=== PATIENT | male | born 1985 | race Caucasian/White ===

== ENCOUNTER 2019-07-24 00:23 | Inpatient (IN) | payer OTHER, SELFPAY ==
[2019-07-24] VITALS (7 sets, daily range): BP systolic 92–118; BP diastolic 51–86; PULSE 62–100; RESP 14–16; TEMP 36.5–37; O2SAT 93–96; BMI 27.4; BMI 27.8
--- NOTE | 2019-07-24 00:42 | CT_ITS ---
STUDY: CT ABDOMEN AND PELVIS WITH CONTRAST REASON FOR EXAM: Male, 33 years old. Upper abdominal pain, nausea and vomiting. Crohn''s disease. TECHNIQUE: Transaxial images were obtained from the dome of the diaphragm to the symphysis pubis without oral contrast. IV 100mL Isovue-370 was administered. Sagittal and coronal images were reconstructed. Individualized dose optimization techniques were used for this CT. COMPARISON: None. FINDINGS: Partially visualized lower chest: Lung bases unremarkable. Liver: No concerning lesions. Gallbladder and biliary tree: No visible gallstones. No pericholecystic inflammation. No biliary ductal dilation. Pancreas: No pancreatic lesions or inflammation. Spleen: Normal size, no splenic lesions. Adrenal glands: No concerning masses. Kidneys and ureters: No hydronephrosis or renal stones. No concerning masses. No ureteral dilation. Bowel: Noninflamed appendix. The distal jejunum and all of the ileum show areas of saccular dilation of the bowel interspersed with regions of wall thickening and luminal narrowing. This extends to the distal/terminal ileum which is concentrically thick-walled and narrowed extending to the ileocecal valve. Prominent mesenteric fat with edema and a small amount of fluid in the mesentery, and engorged straightened basal recta adjacent to the affected loops of small bowel. No abscess or extraluminal air. No fistulous tracts are identified. The large bowel is decompressed. Urinary bladder: No stones or wall thickening. Reproductive:Normal uterus and ovaries. Vascular: No abdominal aortic aneurysm. No atherosclerosis. Patent portal and mesenteric veins. Retroperitoneal and peritoneal spaces: Trace free fluid in the peritoneal cavity. No free air or extra luminal air. Mild mesenteric lymphadenopathy. Osseous: No acute osseous abnormality. Abdominal and pelvic wall: No concerning findings. Chronic postoperative changes anteriorly. CT/Abdomen/Pelvis W IV Cont ONLY IMPRESSION: Crohn''s disease affecting the jejunum and ileum, particularly the distal/terminal ileum. Evidence of an acute flare with mild inflammatory changes. Partial small bowel obstruction secondary to the Crohn''s disease. At least some of the obstruction is likely chronic; comparison with priors would be helpful. No perforation. Electronically Signed: Caio Chavez, at 1:48 EST Tel , Service support ,
[2019-07-24 00:46] LABS: Absolute Lymphocyte Count 0.65 X10^3/uL (0.83-4.51); Absolute Neutrophil Count 9.8 X10^3/uL (2.0-7.7); Basophil# 0.04 X10^3/uL; Basophil% 0.3 % (0-1); Eosinophil# 0.05 X10^3/uL; Eosinophils% 0.4 % (0-5); Hematocrit 48.6 % (40-54); Hemoglobin 16.2 g/dL (13.0-16.5); Lymphocyte # 0.65 X10^3/ul (4.0); Lymphocyte % 5.7 % (19-41); Mean Corp Hgb Conc 33.3 g/dL (32-36); Mean Corpuscular Hgb 28.2 pg (27.0-32.0); Mean Corpuscular Volume 84.7 fL (80-94); Monocyte# 0.86 X10^3/uL; Monocyte% 7.5 % (0-10); NRBC Flagged by Analyzer 0 % (0-5); Neutrophil # 9.84 X10^3/uL (2.7-7.7); Neutrophil % 85.9 % (47-70); Platelet Count 339 K/mm3 (150-450); RBC Distribution Width CV 12.3 % (11.6-14.6); RBC Distribution Width SD 37.5 fl (35.1-43.9); Red Blood Count 5.74 M/mm3 (4.6-6.2); White Blood Count 11.5 K/mm3 (4.4-11.0)
[2019-07-24] MEDS: 0.9% Normal Saline 1,000 ML 1000 ML IV (00:57)
[2019-07-24] MEDS: HYDROmorphone 1 MG/ML Syringe IV ×5 (00:58→22:23)
[2019-07-24] MEDS: Ondansetron 4 MG/2 ML Vial IV ×3 (00:58→18:34)
[2019-07-24 01:07] LABS: ALB/GLOB Ratio 0.8 RATIO (0.9-2.4); AST(SGOT) 15 U/L (15-37); Alanine Aminotransfer ALT/SGPT 20 U/L (16-61); Albumin, Serum 3.8 g/dL (3.2-5.0); Alkaline Phosphatase 82 U/L (45-117); Anion Gap 7 (5-15); BUN 11 mg/dL (7-18); BUN/Creat Ratio 12.8 RATIO (10-20); Calcium,Total 9.3 mg/dL (8.5-10.1); Chloride 106 mmol/L (98-107); Creatinine, Serum 0.86 mg/dL (0.70-1.30); EST Glomerular Filtration Rate 109 mL/min (>60); Est Glom Filt Rate - Afr Amer 132 mL/min (>60); Estimated Creatinine Clearance 107.27 ml/min; Globulin 4.5 g/dL (2.2-4.2); Glucose 114 mg/dL (74-106); Lipase 94 U/L (73-393); Potassium 3.4 mmol/L (3.5-5.1); Protein, Total 8.3 g/dL (6.4-8.2); Sodium Level 137 mmol/L (136-145)
--- NOTE | 2019-07-24 02:59 | ED.DCSUM_ITS ---
- ER Visit Summary Date of Service: 07/24/19 Chief Complaint: Abdominal pain History of Present Illness: The patient is a 33 M with abdominal pain since yesterday morning. It feels like a pulsing in his upper abdomen. Associated with nausea vomiting. Similar to prior Crohn's flare. History of colectomy secondary to Crohn's. He follows with a Dr. Washington in [facility]. Physical Examination: Afebrile vital signs unremarkable. Patient appears in mild distress and uncomfortable. Heart regular. Lungs clear. Abdomen is tender in the upper hemiabdomen. No guarding or rebound. Skin appears normal. Test Results: White count 11.5, potassium 3.4, glucose 114. Lipase normal. Liver normal. Urinalysis pending. CT abdomen showed Crohn's flare of the jejunum and ileum. Partial small bowel obstruction which appears possibly chronic. Please see the complete report. Emergency Department Course and Treatment: Patient was treated with fluids, Dilaudid, Zofran while awaiting results. Work-up was consistent with a Crohn's flare and partial small bowel obstruction. Patient needed additional pain medicine. He is not currently having vomiting. There does not appear to be any indication for NG tube or surgery at this point. Will contact the hospitalist. Treatment Plan: As above Disposition: Admission Impression: 1. Crohn's flare 2. Partial small bowel obstruction This note was generated with [employer] dictation software. It may contain incorrect words, spelling, and punctuation that were not noted in review of the chart prior to signing ED Disposition - Plan for ED Patient: Referrals: Care Physician,No Primary [Primary Care Provider] -
--- NOTE | 2019-07-24 03:11 | PCM.HP.STD ---
Problem List (1) Crohn's disease Status: Acute History of Present Illness Date of Admission: 07/24/19 Chief Complaint: nausea; and vomiting The patient is a 33 year old M with a significant history of Crohn disease status post bowel resection who presents aat the emergency department with 1 day history of excruciating upper abdominal pain that is progressively worsening. His pain is nonradiating. While coming to emergency department his pain increased anything that the car fell into a bump. He denies any ameliorating factors. Associated with symptoms is severe nausea and vomiting. He has diarrhea; unchanged from previous. Abdomen and pelvis CT showed partial small bowel obstruction secondary to Crohn's disease; with at least some of the obstruction likely chronic. Past Medical History Medical History: Medical History (Last Updated 07/24/19 @ 04:09 by Bhavseh Gaitan MD) Crohn's disease K50.90 Allergies morphine Adverse Reaction (Verified 07/24/19 00:28) Itching Home Medications: Ambulatory Orders Medication Instructions Recorded NK 07/24/19 Surgical History: - - Bowel resection Lives: With Family Smoking Status: Current some day smoker Tobacco Use: Cigars Alcohol: Occasional - *Family History Maternal History Items: - - His maternal grandmother has IBS. Paternal History Items: - - He denies any pertinent medical history Review of Systems Constitutional: Denies: Chills, Fever, Weight Change HEENT: Denies: Head Aches, Sinus Congestion, Sinus Drainage Cardiovascular: Denies: Chest Pain, Palpitations Respiratory: Denies: Cough, Shortness of breath at rest, Sputum production Gastrointestinal: Reports: Abdominal Pain, Diarrhea, Nausea, Vomiting Genitourinary: Denies: Dysuria Musculoskeletal: Denies: Joint Pain, Joint Tenderness Skin: Denies: Rash, Wounds Neurological: Denies: Numbness, Tingling, Focal weakness Psychiatric: Denies: Anxiety, Depression, Homicidal Ideations, Suicidal Ideations Hematologic/ Lymphatic: Denies: Easy Bruising, Easy Bleeding VTE Information - Inpt Only VTE Present on Admission: No VTE Mechan Device Prophylaxis: None VTE Pharm Prophylaxis ordered?: Yes Patient Problems: Active and Suspected Problems (Last Updated 07/24/19 @ 04:09 by Bhavesh Gaitan MD) Crohn's disease (Acute) - Physical Exam Vitals/I&O's: Vital Signs Temp Pulse Resp BP Pulse Ox 98.3 F 89 15 118/80 96 07/24/19 00:25 07/24/19 02:24 07/24/19 02:24 07/24/19 02:24 07/24/19 02:24 Oxygen Flow Rate (L/min) 2 Oxygen Delivery Method Nasal Cannula Weight: 74.8 kg Body Mass Index (BMI) 27.4 Intake and Output for Last 24 Hours 07/22/19 07/23/19 07/24/19 23:59 23:59 23:59 Intake Total 1000 / 1000 Balance 1000 / 1000 General: Alert, Oriented x3, Cooperative HEENT: Atraumatic, PERRLA, EOMI, Normocephalic Neck: Supple, No JVD, Negative Carotid Bruits Lungs: Clear to auscultation, Normal air movement Cardiovascular: Regular rate, Normal S1, Normal S2, No murmurs Abdomen: Bowel Sounds Present, Soft, Tender Extremities: No edema, Capillary Refill Less than 3 Seconds Skin: No rashes, No breakdown Musculoskeletal: No Tenderness to Palpation of Joints or Extremities Neurological: Cranial nerves II-XII grossly intact Psych/Mental Status: Normal Affect, Appropriate Laboratory Results 07/24/19 00:30: WBC 11.5 H, RBC 5.74, Hgb 16.2, Hct 48.6, MCV 84.7, MCH 28.2, MCHC 33.3, RDW Std Deviation 37.5, RDW Coeff of Latricia 12.3, Plt Count 339, MPV 10.0, Immature Gran % (Auto) 0.200, Neut % (Auto) 85.9 H, Lymph % (Auto) 5.7 L, [place] % (Auto) 7.5, Eos % (Auto) 0.4, Baso % (Auto) 0.3, Absolute Neuts (auto) 9.8 H, Absolute Lymphs (auto) 0.65 L, Nucleated RBC % 0 07/24/19 00:30: Sodium 137, Potassium 3.4 L, Chloride 106, Carbon Dioxide 24.0, Anion Gap 7, BUN 11, Creatinine 0.86, Estim Creat Clear Calc 107.27, Est GFR (MDRD) Af Amer 132, Est GFR (MDRD) Non-Af 109, BUN/Creatinine Ratio 12.8, Glucose 114 H, Calcium 9.3, Total Bilirubin 0.70, AST 15, ALT 20, Alkaline Phosphatase 82, Total Protein 8.3 H, Albumin 3.8, Globulin 4.5 H, Albumin/Globulin Ratio 0.8 L, Lipase 94 Assessment/Plan All Active Problems (Last Updated 07/24/19 @ 04:09 by Bhavesh Gaitan MD) Crohn's disease (Acute) The patient is a 33 year old M with a significant history of Crohn disease status post bowel resection who presents emergency department with 1 day history of excruciating upper abdominal pain that was progressively worsening; nausea and vomiting and with radiographic evidence of Crohn's flare with probable partial small bowel obstruction a part of which might be chronic. Crohn's flare Supportive treatment with normal saline with potassium replacement. We will keep n.p.o. for now. Patient is allergic to morphine. Dilaudid p.o. ordered. Antiemetics with IV Zofran. Discussed steroid therapy with patient. Patient reported that when he take steroids he becomes angry and he gains weight. Patient is agreeable to short-term steroids. IV Solu-Medrol ordered. His GI doctor is Dr. Mod[place] Washington at [facility]. If patient is still here on Friday at 07/26/2019 consider discussing with his GI doctor for further recommendations .Otherwise consider other immunomodulators on discharge. If patient continues to have nausea vomiting, consider NG tube. Will consult general surgery to optimize management of partial small bowel obstruction Hypokalemia Mild Replacement as above Check magnesium. DVT Prophylaxis Because of his history of Crohn's he has increased risk of DVT. Lovenox ordered. Code Visit Inpatient E&M: 39742 Init Hosp L3
[2019-07-24] MEDS: proMETHazine 25 MG/ML Syringe 6.25 MG IV ×2 (03:48→22:27)
[2019-07-24] MEDS: Potassium Chloride 40 MEQ in 0.9% Normal Saline 1,000 ML 75 MEQ IV ×2 (05:02→19:26)
[2019-07-24] MEDS: 0.9% Saline Lock 10 ML Syringe IV ×4 (05:23→22:36)
--- NOTE | 2019-07-24 09:15 | PN_ITS ---
Patient Problems: Active and Suspected Problems (Last Updated 07/24/19 @ 04:09 by Bhavesh Gaitan MD) Crohn's disease (Acute) Reason for Visit: SBO Subjective: Abdomen feeling slightly better. Still with abdominal pain. No flatus. No emesis. Vitals/I&O's: Vital Signs Temp Pulse Resp BP Pulse Ox 36.8 C 89 15 118/80 96 07/24/19 00:25 07/24/19 02:24 07/24/19 02:24 07/24/19 02:24 07/24/19 07:49 Oxygen Flow Rate (L/min) 2 Oxygen Delivery Method Nasal Cannula Weight: 75.807 kg Body Mass Index (BMI) 27.8 Intake and Output for Last 24 Hours 07/22/19 07/23/19 07/24/19 23:59 23:59 23:59 Intake Total 1000 / 1000 Balance 1000 / 1000 General: Alert, Cooperative, - - uncomfortable. non-toxic. HEENT: Atraumatic, Normocephalic Oral: Moist Mucosa, No Gingival or Mucosal Lesions/ Ulcerations Neck: No Nodes, Trachea Midline Lungs: Clear to auscultation, Normal air movement, No rhonchi, No wheeze, No rales Cardiovascular: Regular rate, Regular Rhythm, Normal S1, Normal S2 Abdomen: Non-Distended, Hypoactive Bowel Sounds, - - TTP around the umbilicus Extremities: No edema, No Calf Tenderness Skin: No rashes, No breakdown Psych/Mental Status: Appropriate, Flat Affect Laboratory Results 07/24/19 00:30: WBC 11.5 H, RBC 5.74, Hgb 16.2, Hct 48.6, MCV 84.7, MCH 28.2, MCHC 33.3, RDW Std Deviation 37.5, RDW Coeff of Latricia 12.3, Plt Count 339, MPV 10 .0, Immature Gran % (Auto) 0.200, Neut % (Auto) 85.9 H, Lymph % (Auto) 5.7 L, Power % (Auto) 7.5, Eos % (Auto) 0.4, Baso % (Auto) 0.3, Absolute Neuts (auto) 9.8 H, Absolute Lymphs (auto) 0.65 L, Nucleated RBC % 0 07/24/19 00:30: Sodium 137, Potassium 3.4 L, Chloride 106, Carbon Dioxide 24.0, Anion Gap 7, BUN 11, Creatinine 0.86, Estim Creat Clear Calc 107.27, Est GFR (MDRD) Af Amer 132, Est GFR (MDRD) Non-Af 109, BUN/Creatinine Ratio 12.8, Glucose 114 H, Calcium 9.3, Total Bilirubin 0.70, AST 15, ALT 20, Alkaline Phosphatase 82, Total Protein 8.3 H, Albumin 3.8, Globulin 4.5 H, Albumin/Globulin Ratio 0.8 L, Lipase 94 07/24/19 00:30: Magnesium 2.0 Current Medications Enoxaparin Sodium (Lovenox) 40 mg SC DAILY [facility] Glucagon () 1 mg IM .X1 PRN PRN Reason: Hypoglycemia Hydromorphone HCl (Dilaudid Inj) 1 mg IV Q4H PRN PRN PRN Reason: Pain Score 6-10/10 Potassium Chloride 40 meq/ (Sodium Chloride) 1,020 mls @ 75 mls/hr IV .[id number] [facility] Last Admin: 07/24/19 05:02 Dose: 75 mls/hr Documented by: Dextrose (Dextrose 10%-Water) 250 mls @ 999 mls/hr IV .Q16M PRN; Protocol PRN Reason: HYPOGLYCEMIA Sodium Chloride () 250 mls @ 15 mls/hr IV .[id number] PRN PRN Reason: Additional IVPB Infusion Methylprednisolone (Solu-Medrol) 40 mg IV Q12 [facility] Last Admin: 07/24/19 05:02 Dose: 40 mg Documented by: Ondansetron HCl (Zofran) 4 mg IV Q8H PRN PRN PRN Reason: NAUSEA/VOMITING Sodium Chloride () 10 - 40 ml IV UD PRN PRN Reason: SALINE FLUSH Last Admin: 07/24/19 05:23 Dose: 10 ml Documented by: STROKE Vital Signs/Narrative: Vital Signs Pulse Ox 07/24/19 07:49 96 Medical Necessity - Tobacco Use Smoking Status: Current some day smoker Tobacco Use: Cigars Assessment/Plan All Active Problems (Last Updated 07/24/19 @ 04:09 by Bhavesh Gaitan MD) Crohn's disease (Acute) 1. SBO * improved distention per the patient * continue NPO for now * IVF * Gen Surg on consult. I am not anticipating any surgery, unless he would fail to progress over the next several days, or if his clinical situation worsens * pain control and antiemetics 2. AE Crohn's dz * has had a prior bowel resection (14 feet) * continue with steroids * follow up with GI as outp. 3. VTE proph: LMWH Code Visit Inpatient E&M: 78921 Subs Hosp L2
--- NOTE | 2019-07-24 10:50 | CM.UR ---
RN CM Assessment Introduced role of RN CM to patient. Patient is alert and able to participate in RN CM Assessment. Care providers, pharmacy, and demographics verified. Mother at bedside. Patient denies any need for assistance with accessibility, ADLs or DME. Noted that patient is Self pay and explained I'll alert SW to come and advise on Medicaid. Patient did state that he also is interested in changing GI physicians. States sees a GI in [place]. States he has been on Humira and hasn't liked the side effects. States that he feels as if his GI has not been listening to him. Gave him GI providers in [place] for him to consider. Also does not have a PCP. Gave him list of PCPs as well to consider. Plan is to discharge home. No need anticipated. Canelo Obrien RN, CCM.
--- NOTE | 2019-07-24 11:05 | PCM.CONS.B ---
- Consult Date of Consult: 07/24/19 - Reason for Consult Chief Complaint: abdominal pain History of Present Illness: 33 y/o WM with known Crohn's disease presents with abdominal pain. States that it feels like a brick inside his abdomen. He had noted this about a day ago. He has been followed by a wrist hemmer in [place], but he wants a new wrist hemmer. He states that he had an intestinal resection several years ago for similar symptoms to what he has now. He states that he last passed flatus yesterday and had a bowel movement yesterday, normally he has several bowel movements per day. He states that he self-discontinued Humira, because he did not like the side effects. He has been on Pentasa, azulfadine, and other anti-inflammatories in the past. He has been trying home remedies since stopping Humira - he states about a year ago - using CBD oil, tumeric, etc. CT scan in [facility] ED reveals The distal jejunum and all of the ileum show areas of saccular dilation of the bowel interspersed with regions of wall thickening and luminal narrowing. This extends to the distal/terminal ileum which is concentrically thick-walled and narrowed extending to the ileocecal valve. Prominent mesenteric fat with edema and a small amount of fluid in the mesentery, and engorged straightened basal recta adjacent to the affected loops of small bowel. No abscess or extraluminal air. No fistulous tracts are identified. WBC mildly elevated at 11.5k with left shift of differential. Past Medical History: Crohn's disease Past Surgical History: small bowel resection as above Medications: none Allergies: morphine Social history: TOB use yes Review of Systems: General - denies fevers Cardiovascular denies chest pain, denies history of heart attack Pulmonary denies shortness of breath, denies coughing up blood Gastrointestinal as per HPI, denies blood in stools Neurological denies seizures Genitourinary denies burning with urination, denies blood in urine Hematological denies spontaneous/prolonged bleeding Skin denies open nonhealing wounds Musculoskeletal denies arthritis Endocrine denies diabetes Psychological denies hallucinations Physical examination: Vital signs Temp 98.3F HR 88 RR 16 BP 120/78 General WD/WN WM in no apparent distress, alert and oriented, not septic appearing HEENT Normocephalic. EOM intact with sclera clear and no icterus noted. Neck is supple with no jugular venous distention noted. Trachea is midline. Lungs normal breath sounds. No rales/rhonchi/wheezing noted. No labored breathing noted, such as retractions. No cough heard. Heart normal heart sounds, regular rate. Abdomen soft with tenderness of the lower abdomen with rebound but no rigidity, no bowel sounds noted Extremities no calf tenderness noted. No pitting edema noted. Genitourinary/Rectal deferred Skin normal skin integrity. Neurological non focal. Psychological normal affect, patient is calm and appropriate IMPRESSION: exacerbation of Crohn's disease with partial small bowel obstruction Discussion/Plan: Patient would be a complicated surgical case - his last surgery was at [facility] in [place] If he requires surgery in this hospital admission, I recommend transfer to [place] or [place] At this point in time, patient states that he feels improved - though still with abdominal pain and obstipation/constipation Recommend IV PPI use Continue medical treatment for Crohn's as you are doing, however if no improvement, consider GI medicine consultation for additional medical treatment Can be on sips of clear liquids May consider repeat CT scan to check status if needed - Friday, recommend use oral gastrografin contrast Will follow patient with you
[2019-07-24] MEDS: Enoxaparin 40 MG/0.4 ML Syringe SC (11:11)
[2019-07-24 12:39] LABS: Bacteria 0 SEEN /hpf (None Seen); Color, Urine Yellow (Yellow); Glucose, Dipstick Normal (Normal); Leukocyte Esterase-Dipstick Negative /ul (Negative); Mucous, Urine 0 SEEN /hpf (<or=2+); Nitrite-Dipstick Negative (Negative); Occult Blood-Urine Negative /ul (Negative); Protein-Dipstick Negative (Negative); Red Blood Cells-Urine 0 SEEN /hpf (0-5); Specific Gravity, Urine 1.015 (1.002-1.030); Squamous Epithelial Cells - UA 0 SEEN /hpf (0-5); Urine Bilirubin Dipstick Negative (Negative); Urine Clarity Clear (Clear); Urine Urobilinogen Normal (Normal); Urine pH 6.5 (5.0 - 8.0); White Blood Cells 0 SEEN /hpf (0-5)
[2019-07-24 12:42] LABS: Ketone-Dipstick 150 mg/dl (Negative)
--- NOTE | 2019-07-24 18:20 | CASEMGMT ---
SOCIAL WORK INFORMANT: KAL JACOBO REASON FOR REFERRAL: PATIENT IS SELF PAY MET WITH PATIENT IN ROOM. INTRODUCED ROLE AND REASON FOR REFERRAL. PATIENT REPORTS USED TO BE ON MEDICAID. PATIENT STATES RECENTLY GOT AND BELIEVES TO BE OVER INCOME. PATIENT STATES THEIR CHILDREN ARE ON MEDICAID. DISCUSSED MEDICAID QUALIFICATIONS AND ENCOURAGED PATIENT TO FOLLOW UP WITH [facility] ON FRIDAY. PATIENT GIVEN INFORMATION ON FREE CLINIC HE DOES NOT HAVE A PRIMARY CARE PHYSICIAN. PATIENT DENIES ANY OTHER NEEDS. PLAN: HOME WITH RESOURCES PROVIDED. GOLDEN CONWAY, REGIONAL BUSINESS MANAGER.
[2019-07-24] MEDS: Ensure Clear 120 ML Liquid PO (18:33)
--- NOTE | 2019-07-24 19:43 | NURSING ---
reviewed and agree with all documentation completed by RENE Roth
[2019-07-25 04:00] VITALS: BP 94/57; PULSE 58; RESP 16; TEMP 36.6; O2SAT 93
[2019-07-25 06:40] LABS: Absolute Lymphocyte Count 0.43 X10^3/uL (0.83-4.51); Absolute Neutrophil Count 4.1 X10^3/uL (2.0-7.7); Hematocrit 40.3 % (40-54); Hemoglobin 12.8 g/dL (13.0-16.5); Lymphocyte # 0.43 X10^3/ul (4.0); Lymphocyte % 9.2 % (19-41); Mean Corp Hgb Conc 31.8 g/dL (32-36); Mean Corpuscular Hgb 27.8 pg (27.0-32.0); Mean Corpuscular Volume 87.4 fL (80-94); Mean Platelet Vol. 10.5 fl (6.2-12.0); Monocyte# 0.13 X10^3/uL; Monocyte% 2.8 % (0-10); NRBC Flagged by Analyzer 0 % (0-5); Neutrophil # 4.11 X10^3/uL (2.7-7.7); POSITIVE DIFFERENTIAL YES; Platelet Count 247 K/mm3 (150-450); RBC Distribution Width CV 12.4 % (11.6-14.6); RBC Distribution Width SD 39.8 fl (35.1-43.9); Red Blood Count 4.61 M/mm3 (4.6-6.2); White Blood Count 4.7 K/mm3 (4.4-11.0)
[2019-07-25 06:44] LABS: Differential Indicated SCAN CRITERIA MET
[2019-07-25 06:51] LABS: Anion Gap 4 (5-15); BUN 7 mg/dL (7-18); BUN/Creat Ratio 11.2 RATIO (10-20); Calcium,Total 8.6 mg/dL (8.5-10.1); Chloride 109 mmol/L (98-107); Creatinine, Serum 0.63 mg/dL (0.70-1.30); EST Glomerular Filtration Rate 157 mL/min (>60); Est Glom Filt Rate - Afr Amer 190 mL/min (>60); Estimated Creatinine Clearance 146.43 ml/min; Glucose 119 mg/dL (74-106); Potassium 4.6 mmol/L (3.5-5.1); Sodium Level 139 mmol/L (136-145)
[2019-07-25 07:07] VITALS: O2SAT 92
--- NOTE | 2019-07-25 08:29 | PN_ITS ---
Patient Problems: Active and Suspected Problems (Last Updated 07/24/19 @ 04:09 by Bhavesh Gaitan MD) Crohn's disease (Acute) Reason for Visit: SBO Subjective: Feeling better. Tolerating clears. +BM and flatus. Vitals/I&O's: Vital Signs Temp Pulse Resp BP Pulse Ox 36.6 C 58 L 16 94/57 L 92 07/25/19 04:00 07/25/19 04:00 07/25/19 04:00 07/25/19 04:00 07/25/19 07:07 Oxygen Flow Rate (L/min) 2 Oxygen Delivery Method Room Air Weight: 75.807 kg Body Mass Index (BMI) 27.8 Intake and Output for Last 24 Hours 07/23/19 07/24/19 07/25/19 23:59 23:59 23:59 Intake Total 2440 / 2680 796.25 / 796.25 Output Total 250 / 250 0 / 0 Balance 2190 / 2430 796.25 / 796.25 General: No apparent distress HEENT: Atraumatic, Normocephalic Oral: Moist Mucosa, No Gingival or Mucosal Lesions/ Ulcerations Neck: No Nodes, Trachea Midline Lungs: Clear to auscultation, Normal air movement, No rhonchi, No wheeze, No rales Cardiovascular: Regular rate, Regular Rhythm, Normal S1, Normal S2, No murmurs Abdomen: Hypoactive Bowel Sounds, Tender - but less so than on 07/24 Extremities: No edema, No Calf Tenderness Skin: No rashes, No breakdown Psych/Mental Status: Normal Affect, Appropriate Laboratory Results 07/24/19 12:25: Urine Color Yellow, Urine Clarity Clear, Urine pH 6.5, Ur Specific [place] 1.015, Urine Protein Negative, Urine Glucose (UA) Normal, Urine Ketones 150 H, Urine Occult Blood Negative, Urine Nitrite Negative, Urine Bilirubin Negative, Urine Urobilinogen Normal, Ur Leukocyte Esterase Negative, Urine RBC 0 SEEN, Urine WBC 0 SEEN, Ur Squamous Epith Cells 0 SEEN, Urine Bacteria 0 SEEN, Urine Mucus 0 SEEN 07/25/19 05:44: WBC 4.7, RBC 4.61, Hgb 12.8 L, Hct 40.3, MCV 87.4, MCH 27.8, MCHC 31.8 L, RDW Std Deviation 39.8, RDW Coeff of Latricia 12.4, Plt Count 247, MPV 10.5, Immature Gran % (Auto) 0.000, Neut % (Auto) 88.0 H, Lymph % (Auto) 9.2 L, [place] % (Auto) 2.8, Eos % (Auto) 0.0, Baso % (Auto) 0.0, Absolute Neuts (auto) 4.1, Absolute Lymphs (auto) 0.43 L, Nucleated RBC % 0 07/25/19 05:44: Sodium 139, Potassium 4.6, Chloride 109 H, Carbon Dioxide 26.0, Anion Gap 4 L, BUN 7, Creatinine 0.63 L, Estim Creat Clear Calc 146.43, Est GFR (MDRD) Af Amer 190, Est GFR (MDRD) Non-Af 157, BUN/Creatinine Ratio 11.2, Glucose 119 H, Calcium 8.6 Current Medications Enoxaparin Sodium (Lovenox) 40 mg SC DAILY [facility] Last Admin: 07/24/19 11:11 Dose: 40 mg Documented by: Glucagon () 1 mg IM .X1 PRN PRN Reason: Hypoglycemia Hydromorphone HCl (Dilaudid Inj) 1 mg IV Q4H PRN PRN PRN Reason: Pain Score 6-10/10 Last Admin: 07/24/19 22:23 Dose: 1 mg Documented by: Potassium Chloride 40 meq/ (Sodium Chloride) 1,020 mls @ 75 mls/hr IV .[id number] [facility] Last Infusion: 07/25/19 02:51 Dose: 75 mls/hr Documented by: Dextrose (Dextrose 10%-Water) 250 mls @ 999 mls/hr IV .Q16M PRN; Protocol PRN Reason: HYPOGLYCEMIA Sodium Chloride () 250 mls @ 15 mls/hr IV .[id number] PRN PRN Reason: Additional IVPB Infusion Pantoprazole Sodium 40 mg/ (Sodium Chloride) 110 mls @ 330 mls/hr IV Q24 [facility] Methylprednisolone (Solu-Medrol) 40 mg IV Q12 [facility] Last Admin: 07/24/19 22:27 Dose: 40 mg Documented by: Nutritional Formula (Lactose Free) (Ensure Clear) 120 ml PO 4X/DAY [facility] Last Admin: 07/24/19 22:37 Dose: Not Given Documented by: Ondansetron HCl (Zofran) 4 mg IV Q8H PRN PRN PRN Reason: NAUSEA/VOMITING Last Admin: 07/24/19 18:34 Dose: 4 mg Documented by: Promethazine HCl (Phenergan) 6.25 mg IV Q6H PRN PRN PRN Reason: NAUSEA/VOMITING Last Admin: 07/24/19 22:27 Dose: 6.25 mg Documented by: Sodium Chloride () 10 - 40 ml IV UD PRN PRN Reason: SALINE FLUSH Last Admin: 07/24/19 22:36 Dose: 10 ml Documented by: STROKE Vital Signs/Narrative: Vital Signs Pulse Ox 07/25/19 07:07 92 Medical Necessity - Tobacco Use Smoking Status: Current some day smoker Tobacco Use: Cigars Assessment/Plan All Active Problems (Last Updated 07/24/19 @ 04:09 by Bhavesh Gaitan MD) Crohn's disease (Acute) 1. SBO * improved distention per the patient * tolerated clears, advance to fulls * IVF * Gen Surg on consult. I am not anticipating any surgery, unless he would fail to progress over the next several days, or if his clinical situation worsens. If surgery required, he will need to go another facility. * pain control and antiemetics 2. AE Crohn's dz * has had a prior bowel resection (14 feet) * continue with steroids * follow up with GI as outp. 3. VTE proph: LMWH Code Visit Inpatient E&M: 68876 Subs Hosp L2
[2019-07-25] MEDS: 0.9% Normal Saline 1,000 ML 125 ML IV ×2 (09:34→17:51)
[2019-07-25 09:35] VITALS: PULSE 76
[2019-07-25 10:05] VITALS: BP 98/47; PULSE 68; RESP 18; TEMP 36.5; O2SAT 94
[2019-07-25] MEDS: Enoxaparin 40 MG/0.4 ML Syringe SC (10:06)
--- NOTE | 2019-07-25 10:23 | PCM.PN.SRG ---
Patient Problems: Active and Suspected Problems (Last Updated 07/24/19 @ 04:09 by Bhavesh Gaitan MD) Crohn's disease (Acute) Subjective: Patient passing flatus and has had bowel movements states abdominal pain is much improved, still sensation of brick - Physical Exam Vitals/I&O's: Vital Signs Temp Pulse Resp BP Pulse Ox 97.7 F L 68 18 98/47 L 94 07/25/19 10:05 07/25/19 10:05 07/25/19 10:05 07/25/19 10:05 07/25/19 10:05 Oxygen Flow Rate (L/min) 2 Oxygen Delivery Method Room Air Weight: 75.807 kg Body Mass Index (BMI) 27.8 Intake and Output for Last 24 Hours 07/23/19 07/24/19 07/25/19 23:59 23:59 23:59 Intake Total 2440 / 2680 1330.83 / 1330.83 Output Total 250 / 250 0 / 0 Balance 2190 / 2430 1330.83 / 1330.83 General: Alert, Oriented x3 Oral: Moist Mucosa Neck: Supple Lungs: Normal air movement Abdomen: Bowel Sounds Present, Soft Laboratory Results 07/24/19 12:25: Urine Color Yellow, Urine Clarity Clear, Urine pH 6.5, Ur Specific [place] 1.015, Urine Protein Negative, Urine Glucose (UA) Normal, Urine Ketones 150 H, Urine Occult Blood Negative, Urine Nitrite Negative, Urine Bilirubin Negative, Urine Urobilinogen Normal, Ur Leukocyte Esterase Negative, Urine RBC 0 SEEN, Urine WBC 0 SEEN, Ur Squamous Epith Cells 0 SEEN, Urine Bacteria 0 SEEN, Urine Mucus 0 SEEN 07/25/19 05:44: WBC 4.7, RBC 4.61, Hgb 12.8 L, Hct 40.3, MCV 87.4, MCH 27.8, MCHC 31.8 L, RDW Std Deviation 39.8, RDW Coeff of Latricia 12.4, Plt Count 247, MPV 10.5, Immature Gran % (Auto) 0.000, Neut % (Auto) 88.0 H, Lymph % (Auto) 9.2 L, Kay % (Auto) 2.8, Eos % (Auto) 0.0, Baso % (Auto) 0.0, Absolute Neuts (auto) 4.1, Absolute Lymphs (auto) 0.43 L, Nucleated RBC % 0 07/25/19 05:44: Sodium 139, Potassium 4.6, Chloride 109 H, Carbon Dioxide 26.0, Anion Gap 4 L, BUN 7, Creatinine 0.63 L, Estim Creat Clear Calc 146.43, Est GFR (MDRD) Af Amer 190, Est GFR (MDRD) Non-Af 157, BUN/Creatinine Ratio 11.2, Glucose 119 H, Calcium 8.6 Current Medications Enoxaparin Sodium (Lovenox) 40 mg SC DAILY [facility] Last Admin: 07/25/19 10:06 Dose: 40 mg Documented by: Glucagon () 1 mg IM .X1 PRN PRN Reason: Hypoglycemia Hydromorphone HCl (Dilaudid Inj) 1 mg IV Q4H PRN PRN PRN Reason: Pain Score 6-10/10 Last Admin: 07/24/19 22:23 Dose: 1 mg Documented by: Dextrose (Dextrose 10%-Water) 250 mls @ 999 mls/hr IV .Q16M PRN; Protocol PRN Reason: HYPOGLYCEMIA Sodium Chloride () 250 mls @ 15 mls/hr IV .[id number] PRN PRN Reason: Additional IVPB Infusion Pantoprazole Sodium 40 mg/ (Sodium Chloride) 110 mls @ 330 mls/hr IV Q24 [facility] Last Admin: 07/25/19 10:06 Dose: 330 mls/hr Documented by: Sodium Chloride () 1,000 mls @ 125 mls/hr IV .Q8H [facility] Last Infusion: 07/25/19 10:08 Dose: 0 mls/hr Documented by: Methylprednisolone (Solu-Medrol) 40 mg IV Q12 [facility] Last Admin: 07/25/19 10:06 Dose: 40 mg Documented by: Nutritional Formula (Lactose Free) (Ensure Clear) 120 ml PO 4X/DAY [facility] Last Admin: 07/25/19 10:04 Dose: Not Given Documented by: Ondansetron HCl (Zofran) 4 mg IV Q8H PRN PRN PRN Reason: NAUSEA/VOMITING Last Admin: 07/24/19 18:34 Dose: 4 mg Documented by: Promethazine HCl (Phenergan) 6.25 mg IV Q6H PRN PRN PRN Reason: NAUSEA/VOMITING Last Admin: 07/24/19 22:27 Dose: 6.25 mg Documented by: Sodium Chloride () 10 - 40 ml IV UD PRN PRN Reason: SALINE FLUSH Last Admin: 07/24/19 22:36 Dose: 10 ml Documented by: Medical Necessity - Tobacco Use Smoking Status: Current some day smoker Tobacco Use: Cigars Assessment/Plan All Active Problems (Last Updated 07/24/19 @ 04:09 by Bhavesh Gaitan MD) Crohn's disease (Acute) Impression: exacerbation of Crohn's disease, partial bowel obstruction - resolved Discussion/Plan: patient is interested in GI medicine with [facility] - I will put in referral to [facility] for patient ( he has been counseled that this may take weeks/months) He will continue follow up with his [place] physician until above His bowel obstruction symptoms have resolved - no surgical intervention required - will sign off case
[2019-07-25 15:25] VITALS: BP 92/58; PULSE 82; RESP 16; TEMP 36.7; O2SAT 94
[2019-07-25] MEDS: HYDROmorphone 1 MG/ML Syringe IV ×2 (16:38→21:28)
[2019-07-25] MEDS: 0.9% Saline Lock 10 ML Syringe IV ×3 (16:38→21:30)
[2019-07-25] MEDS: Ondansetron 4 MG/2 ML Vial IV (16:43)
[2019-07-25] MEDS: proMETHazine 25 MG/ML Syringe 6.25 MG IV (21:27)
[2019-07-25 21:37] VITALS: BP 111/66; PULSE 78; RESP 18; TEMP 37; O2SAT 95
[2019-07-26] MEDS: 0.9% Normal Saline 1,000 ML 125 ML IV (01:57)
[2019-07-26 02:02] VITALS: BP 97/57; PULSE 60; RESP 18; TEMP 36.6; O2SAT 94
[2019-07-26 06:03] LABS: Absolute Lymphocyte Count 0.49 X10^3/uL (0.83-4.51); Absolute Neutrophil Count 4.6 X10^3/uL (2.0-7.7); Basophil# 0.01 X10^3/uL; Basophil% 0.2 % (0-1); Hematocrit 39.1 % (40-54); Hemoglobin 12.8 g/dL (13.0-16.5); Lymphocyte # 0.49 X10^3/ul (4.0); Lymphocyte % 9.1 % (19-41); Mean Corp Hgb Conc 32.7 g/dL (32-36); Mean Corpuscular Hgb 28.6 pg (27.0-32.0); Mean Corpuscular Volume 87.5 fL (80-94); Mean Platelet Vol. 10.4 fl (6.2-12.0); Monocyte% 5.6 % (0-10); NRBC Flagged by Analyzer 0 % (0-5); Neutrophil # 4.55 X10^3/uL (2.7-7.7); Neutrophil % 84.9 % (47-70); POSITIVE DIFFERENTIAL YES; Platelet Count 243 K/mm3 (150-450); RBC Distribution Width CV 12.2 % (11.6-14.6); RBC Distribution Width SD 39.2 fl (35.1-43.9); Red Blood Count 4.47 M/mm3 (4.6-6.2); White Blood Count 5.4 K/mm3 (4.4-11.0)
[2019-07-26 06:12] LABS: Differential Indicated SCAN CRITERIA MET
[2019-07-26 06:34] LABS: Anion Gap 1 (5-15); BUN 6 mg/dL (7-18); BUN/Creat Ratio 8.6 RATIO (10-20); Calcium,Total 8.4 mg/dL (8.5-10.1); Chloride 112 mmol/L (98-107); EST Glomerular Filtration Rate 138 mL/min (>60); Est Glom Filt Rate - Afr Amer 167 mL/min (>60); Estimated Creatinine Clearance 131.79 ml/min; Glucose 129 mg/dL (74-106); Sodium Level 142 mmol/L (136-145)
[2019-07-26 06:40] LABS: Differential Comment SCANNED
--- NOTE | 2019-07-26 08:56 | PCM.DC ---
- Discharge Diagnoses Current Active Problems: Current Active and Chronic Problems (Last Updated 07/24/19 @ 04:09 by Bhavesh Gaitan MD) Crohn's disease (Acute) You will use the following diet at home:: No restrictions - mechanical soft, advance as tolerated Your food should be the consistency of: Regular Call your doctor if you observe: Fever of 101 or Higher, - - worsening abdominal pain. Allergies/Adverse Reactions: Allergies morphine Adverse Reaction (Verified 07/24/19 00:28) Itching Medications to take at Discharge Acetaminophen 1,000 mg PO TID PRN #1 tab 07/26/19 Ibuprofen 600 mg PO 4X/DAY PRN #1 tab 07/26/19 Ondansetron HCl [Zofran] 8 mg PO TID PRN #20 tab 07/26/19 Oxycodone [Oxyir] 5 mg PO Q6H PRN PRN 3 Days #12 tablet 07/26/19 Prednisone 1 tab PO DAILY #66 tab 07/26/19 The following prescriptions were given: Acetaminophen 1,000 mg PO TID PRN #1 tab PRN Reason: pain 1-1010 Ibuprofen 600 mg PO 4X/DAY PRN #1 tab PRN Reason: pain 1-1010 Oxycodone [Oxyir] 5 mg PO Q6H PRN PRN 3 Days #12 tablet PRN Reason: pain 4-1010 Transmission Status: Sent to [facility] Prednisone 1 tab PO DAILY #66 tab Transmission Status: Pending to [facility] Ondansetron HCl [Zofran] 8 mg PO TID PRN #20 tab PRN Reason: nausea and vomiting Transmission Status: Pending to [facility] Primary Care Physician: Care Physician,No Primary [Primary Care Provider] - Please follow up with your Primary Care Physician in: establish with primary care physician at earliest convenience. Test Results: Test results from this visit will be discussed in further detail at your follow-up appointment, if applicable. Please Follow Up With: Gastroenterology When: at earliest available Proposed Discharge Date: 07/26/19
--- NOTE | 2019-07-26 08:59 | DS.PCM_ITS ---
Discharge Date and Diagnosis - Problem List Patient Problems: Active and Suspected Problems (Last Updated 07/24/19 @ 04:09 by Bhavesh Gaitan MD) Crohn's disease (Acute) SBO (small bowel obstruction) (Acute) Date of Admission: 07/24/19 Date of Discharge: 07/26/19 - Primary Discharge Diagnosis Active and Suspected Problems (Last Updated 07/24/19 @ 04:09 by Bhavesh Gaitan MD) Crohn's disease (Acute) Hospital Course and Treatment Imaging Results: Clinical Impression(s) from Imaging Studies Abdomen/Pelvis CT 07/24/19 00:42 IMPRESSION: Crohn''s disease affecting the jejunum and ileum, particularly the distal/terminal ileum. Evidence of an acute flare with mild inflammatory changes. Partial small bowel obstruction secondary to the Crohn''s disease. At least some of the obstruction is likely chronic; comparison with priors would be helpful. No perforation. Electronically Signed: Mingcaridad Kathy, at 1:48 EST Tel , Service support , Felicitas Foster, general surgery. Operations: None Procedures: None Summary of Care Provided: The patient is a 33 year old Lucita Jacobo with acute onset abdominal pain, nausea and vomiting. This is a male who has known history of Crohn's disease but not on any chronic medications. States that times to get some mild flares but resolve spontaneously without pursuing any treatment. But patient felt much worse and was refractory to any symptom control. Patient had a abdomen and pelvis CT that showed a partial small bowel obstruction secondary to inflammation which would be his Crohn's disease. Patient was started on methylprednisolone and made n.p.o. Patient was seen in consultation by general surgery in case surgical masses measures were necessary. Overall, the patient slowly improved and has been tolerating diet. Patient will be discharged home. Patient does see a seafood harvester in [place] but Dr. jeffrey gave him information to follow- up with a seafood harvester at [facility] to see if he would require any additional therapies. Patient will be placed on a steroid taper over the next month. Patient advised to return if he has any worsening of abdominal symptoms. Additionally, patient has had roughly 14 feet of his colon and small bowel are removed due to his Crohn's disease in the past. [] Patient Problems: Active and Suspected Problems (Last Updated 07/24/19 @ 04:09 by Bhavesh Gaitan MD) Crohn's disease (Acute) SBO (small bowel obstruction) (Acute) - Physical Exam Vitals/I&O's: Vital Signs Temp Pulse Resp BP Pulse Ox 36.6 C 60 18 97/57 L 94 07/26/19 02:02 07/26/19 02:02 07/26/19 02:02 07/26/19 02:02 07/26/19 02:02 Oxygen Flow Rate (L/min) 2 Oxygen Delivery Method Room Air Weight: 75.807 kg Body Mass Index (BMI) 27.8 Intake and Output for Last 24 Hours 07/24/19 07/25/19 07/26/19 23:59 23:59 23:59 Intake Total 2440 / 2680 2967.91 / 2967.91 1000 / 1000 Output Total 250 / 250 0 / 0 Balance 2190 / 2430 2967.91 / 2967.91 1000 / 1000 General: Alert, Cooperative, No apparent distress HEENT: Atraumatic, Normocephalic Abdomen: Hypoactive Bowel Sounds, - - Less firmness in the left lateral umbilicus. Softer overall. Laboratory Results 07/26/19 05:40: WBC 5.4, RBC 4.47 L, Hgb 12.8 L, Hct 39.1 L, MCV 87.5, MCH 28.6, MCHC 32.7, RDW Std Deviation 39.2, RDW Coeff of Latricia 12.2, Plt Count 243, MPV 10.4, Immature Gran % (Auto) 0.200, Neut % (Auto) 84.9 H, Lymph % (Auto) 9.1 L, Boyd % (Auto) 5.6, Eos % (Auto) 0.0, Baso % (Auto) 0.2, Absolute Neuts (auto) 4.6, Absolute Lymphs (auto) 0.49 L, Nucleated RBC % 0, Differential Comment SCANNED 07/26/19 05:40: Sodium 142, Potassium 4.0, Chloride 112 H, Carbon Dioxide 29.0, Anion Gap 1 L, BUN 6 L, Creatinine 0.70, Estim Creat Clear Calc 131.79, Est GFR (MDRD) Af Amer 167, Est GFR (MDRD) Non-Af 138, BUN/Creatinine Ratio 8.6 L, Glucose 129 H, Calcium 8.4 L Current Medications Enoxaparin Sodium (Lovenox) 40 mg SC DAILY [facility] Last Admin: 07/25/19 10:06 Dose: 40 mg Documented by: Glucagon () 1 mg IM .X1 PRN PRN Reason: Hypoglycemia Hydromorphone HCl (Dilaudid Inj) 1 mg IV Q4H PRN PRN PRN Reason: Pain Score 6-10/10 Last Admin: 07/25/19 21:28 Dose: 1 mg Documented by: Dextrose (Dextrose 10%-Water) 250 mls @ 999 mls/hr IV .Q16M PRN; Protocol PRN Reason: HYPOGLYCEMIA Sodium Chloride () 250 mls @ 15 mls/hr IV .[id number] PRN PRN Reason: Additional IVPB Infusion Pantoprazole Sodium 40 mg/ (Sodium Chloride) 110 mls @ 330 mls/hr IV Q24 [facility] Last Infusion: 07/25/19 10:26 Dose: Infused Documented by: Sodium Chloride () 1,000 mls @ 125 mls/hr IV .Q8H [facility] Last Admin: 07/26/19 01:57 Dose: 125 mls/hr Documented by: Ondansetron HCl (Zofran) 4 mg IV Q8H PRN PRN PRN Reason: NAUSEA/VOMITING Last Admin: 07/25/19 16:43 Dose: 4 mg Documented by: Prednisone () 40 mg PO X1 ONE Stop: 07/26/19 08:36 Prednisone () 40 mg PO DAILY@0800 [facility] Promethazine HCl (Phenergan) 6.25 mg IV Q6H PRN PRN PRN Reason: NAUSEA/VOMITING Last Admin: 07/25/19 21:27 Dose: 6.25 mg Documented by: Sodium Chloride () 10 - 40 ml IV UD PRN PRN Reason: SALINE FLUSH Last Admin: 07/25/19 21:30 Dose: 20 ml Documented by: Discharge Diet: No Restrictions - mechanical soft, advance as tolerated. Call your doctor if you observe: Fever of 101 or Higher, - - worsening abdominal pain. Home Medications: Medications to take at Discharge Acetaminophen 1,000 mg PO TID PRN #1 tab 07/26/19 Ibuprofen 600 mg PO 4X/DAY PRN #1 tab 07/26/19 Ondansetron HCl [Zofran] 8 mg PO TID PRN #20 tab 07/26/19 Oxycodone [Oxyir] 5 mg PO Q6H PRN PRN 3 Days #12 tablet 07/26/19 Prednisone 1 tab PO DAILY #66 tab 07/26/19 Following Prescrptions Were Given to Patient: Acetaminophen 1,000 mg PO TID PRN #1 tab PRN Reason: pain -03/25 Ibuprofen 600 mg PO 4X/DAY PRN #1 tab PRN Reason: pain -03/25 Oxycodone [Oxyir] 5 mg PO Q6H PRN PRN 3 Days #12 tablet PRN Reason: pain -03/25 Transmission Status: Sent to [facility] Prednisone 1 tab PO DAILY #66 tab Transmission Status: Pending to [facility] Ondansetron HCl [Zofran] 8 mg PO TID PRN #20 tab PRN Reason: nausea and vomiting Transmission Status: Pending to [facility] Primary Care Physician: Care Physician,No Primary [Primary Care Provider] - Please follow up with your Primary Care Physician in: establish with primary care physician at earliest convenience. Please Follow Up With: Gastroenterology When: at earliest available Disposition: Home Minutes spent on discharge:: 32 Patient Condition:: Good Medical Necessity - Tobacco Use Smoking Status: Current some day smoker Tobacco Use: Cigars Meaningful Use Info Meaningful Use Diagnoses (Choose all that apply): None applicable Code Visit Inpatient E&M: 60950 Disch Hosp
[2019-07-26 09:31] VITALS: BP 100/63; PULSE 78; RESP 14; TEMP 36.7; O2SAT 95
[2019-07-26] MEDS: Enoxaparin 40 MG/0.4 ML Syringe SC (09:39)
[2019-07-26] MEDS: predniSONE 20 MG Tablet 40 MG PO (09:39)
[2019-07-26] MEDS: Pantoprazole Sodium 40 MG Tablet PO (09:39)
== END 2019-07-26 11:02 | disposition home or self-care (01) | DRG 387 ==
LOC: ED 01:01 → MS3 03:54
PROVIDERS: Admitting Provider Hospitalist; Emergency Provider Emergency Medicine
DX: K50.012 Crohn's disease of small intestine with intestinal obstruction (principal); Z90.49 Acquired absence of other specified parts of digestive tract; F17.290 Nicotine dependence, other tobacco product, uncomplicated; E87.6 Hypokalemia
CPT/HCPCS: 36415; 74177; 80048; 80053; 81001; 83690; 83735; 85025; 99284; J7030; Q9967; A4216; J2405

== ENCOUNTER 2020-06-06 05:03 | Inpatient (IN) | payer SELFPAY ==
[2019-07-24 04:04] VITALS: BMI 27.8
[2020-06-06] VITALS (8 sets, daily range): BP systolic 98–140; BP diastolic 46–86; PULSE 63–84; RESP 16–20; TEMP 36.1–36.8; O2SAT 93–98; BMI 28.0; BMI 28.1
--- NOTE | 2020-06-06 05:24 | CT_ITS ---
STUDY: CT ABDOMEN AND PELVIS WITH CONTRAST REASON FOR EXAM: Male, 34 years old. Crohn''s disease. Obstructive symptoms. TECHNIQUE: Transaxial images were obtained from the dome of the diaphragm to the symphysis pubis with oral contrast. Oral and amp; IV Gastrografin and amp; 100mL Isovue-300 was administered. Sagittal and coronal images were reconstructed. Individualized dose optimization techniques were used for this CT. COMPARISON: 07/24/2019 CT abdomen and pelvis. FINDINGS: Partially visualized lower chest: Subsegmental dependent atelectasis posteriorly. Liver: No concerning lesions. Gallbladder and biliary tree: No visible gallstones. No pericholecystic inflammation. No biliary ductal dilation. Pancreas: No pancreatic lesions or inflammation. Spleen: Normal size, no splenic lesions. Adrenal glands: No concerning masses. Kidneys and ureters: No hydronephrosis or renal stones. No concerning masses. No ureteral dilation. Bowel: Normal appendix. Multifocal regions of distal jejunal and ileal narrowing interspersed with saccular dilation of the lumen. The regions of luminal narrowing have wall thickening and mild adjacent inflammatory changes. Resulting mild obstruction with mildly dilated more proximal small bowel with air-fluid levels. Small amount of free fluid in the mesentery but no extraluminal air or abscess. No fistulous tracts are identified. Relative decompression of the large bowel. Urinary bladder: No stones or wall thickening. Reproductive:Normal size prostate. Vascular: No abdominal aortic aneurysm. Retroperitoneal and peritoneal spaces: No free air. Trace perihepatic ascites. Small amount of mesenteric fluid adjacent to the inflamed ileal loops. Mild mesenteric lymphadenopathy similar to previous. Osseous: No acute osseous abnormality. Abdominal and pelvic wall: No concerning findings. CT/Abdomen/Pelvis WITH Contrast IMPRESSION: The findings are similar to 07/24/2019, with Crohn''''s disease affecting the jejunum and ileum, particularly the distal/terminal ileum. As on the previous study there is evidence of an acute flare with mild inflammatory changes, and mild partial small bowel obstruction. No perforation. Electronically Signed: Caio Chavez, at 7:44 EST Tel , Service support ,
--- NOTE | 2020-06-06 05:25 | ED.VIS.GEN ---
History of Present Illness Chief Complaint: Nausea/Vomiting Informant: Patient Narrative: 34-year-old male with a history of Crohn's disease presents the emergency department a concern for small bowel obstruction. Patient states that he was living in [facility] when he developed Crohn's disease. After a very complicated course she states he ended up with a colectomy in . Using online resources it appears that he had a partial small bowel resection. Since that time he has had intermittent partial and small bowel obstructions. His last partial obstruction was in July of this year and was treated at this hospital with conservative measures. He was seen a equipment service engineer in [place] but has been trying to get him with the [facility] but has been finding it difficult mostly due to Covid and the long wait to get in. He is currently not on any medications for Crohn's. He tells me that since Friday he has not had a bowel movement. He feels bloated. He is not passing any gas. He is having nausea and vomiting. Describes the emesis as bile-like. He tells me that he has never required surgery for adhesions. He has never had a colostomy. At the end of August beginning of September the patient saw Dr. Cisneros. He had had a CT enterography on 09/13/19 - active inflammatory small bowel disease of approximately 10 cm of the TI and another short segment of the ileum just proximally measuring 5 cm. No e/o bowel stricture or bowel obstruction. He had follow-up following the CT enterography and these were the recommendations: RECOMMENDATION: 1. Schedule colonoscopy - biopsies. Start Budesonide 9mg X 4 weeks then 6mg X 2 weeks then 3 mg X 2 weeks. Repeat colonoscopy after in 6-12 months after that. Will discuss terminal gauger maintenance likely with Imuran if needed post course of Entecort. Smoking cessation. Avoid NSAIDs. He states he has not followed up with that equipment service engineer. - Past Medical History (1) Crohn's disease Status: Acute Past Medical History - Allergies and Home Meds Allergies/Adverse Reactions: Allergies morphine Adverse Reaction (Verified 06/06/20 05:11) Itching Primary Care Physician: Care Physician,No Primary [Primary Care Provider] - Surgical History: - - Bowel resection Smoking Status: Current some day smoker Drugs: None - Family History Maternal Family History: Reports: - - His maternal grandmother has IBS. Paternal Family History: Reports: - - He denies any pertinent medical history Review of Systems General: Denies: Chills, Fever, Sweats Eyes: Denies: Visual changes - bilaterally, Diplopia ENT: Denies: Rhinorrhea, Sore throat Cardiovascular: Denies: Chest pain, Palpitations Respiratory: Denies: Dyspnea, Cough, Dyspnea on exertion Gastrointestinal: Reports: Abdominal pain, Nausea, Vomiting. Denies: Diarrhea, Melena, Hematochezia Genitourinary: Denies: Dysuria, Hematuria, Frequency Musculoskeletal: Denies: Back pain, Extremity Pain Skin: Denies: Rash, Wounds Neurological: Denies: Headache, Weakness, Numbness Physical Exam Vital Signs/Narrative: Vital Signs Temp Pulse Resp BP Pulse Ox 06/06/20 05:03 97 F L 84 20 H 140/86 H 97 Inital Vital Signs reviewed: Yes General: Well nourished, Well developed, No Acute Distress Head: Normocephalic, Atraumatic Eyes: Perrl, EOMI ENT: Moist mucous membranes, No rhinorrhea Neck: Supple, Nontender Cardiovascular: Regular rate, Regular rhythm, No murmurs Respiratory: No distress, CTA bilaterally, Chest nontender Abdomen: Soft, Nondistended, Tender - Diffusely tender to palpation., Guarding, Hypoactive bowel sounds Back: Nontender, Normal Inspection Extremities: Nontender, No edema Skin: Normal color, No rash Neurological: Alert, Oriented x3, Cranial nerves II-XII grossly intact, Normal Strength, Normal Sensation Psychological: Normal affect, Normal Mood Diagnostic/Tx/Re-eval Laboratory Last Values WBC 9.2 K/mm3 (4.4-11.0) 06/06/20 05:33 RBC 5.67 M/mm3 (4.6-6.2) 06/06/20 05:33 Hgb 14.3 g/dL (13.0-16.5) 06/06/20 05:33 Hct 44.7 % (40-54) 06/06/20 05:33 MCV 78.8 fL (80-94) L 06/06/20 05:33 MCH 25.2 pg (27.0-32.0) L 06/06/20 05:33 MCHC 32.0 g/dL (32-36) 06/06/20 05:33 RDW Std Deviation 46.8 fl (35.1-43.9) H 06/06/20 05:33 RDW Coeff of Latricia 16.4 % (11.6-14.6) H 06/06/20 05:33 Plt Count 372 K/mm3 (150-450) 06/06/20 05:33 MPV 10.1 fl (6.2-12.0) 06/06/20 05:33 Immature Gran % (Auto) 0.300 % (0.0-0.9) 06/06/20 05:33 Neut % (Auto) 85.2 % (47-70) H 06/06/20 05:33 Lymph % (Auto) 8.1 % (19-41) L 06/06/20 05:33 Cassia % (Auto) 5.9 % (0-10) 06/06/20 05:33 Eos % (Auto) 0.2 % (0-5) 06/06/20 05:33 Baso % (Auto) 0.3 % (0-1) 06/06/20 05:33 Absolute Neuts (auto) 7.8 X10^3/uL (2.0-7.7) H 06/06/20 05:33 Absolute Lymphs (auto) 0.74 X10^3/uL (0.83-4.51) L 06/06/20 05:33 Nucleated RBC % 0 % (0-5) 06/06/20 05:33 Sodium 136 mmol/L (136-145) 06/06/20 05:33 Potassium 3.8 mmol/L (3.5-5.1) 06/06/20 05:33 Chloride 103 mmol/L (98-107) 06/06/20 05:33 Carbon Dioxide 27.0 mmol/L (21.0-32.0) 06/06/20 05:33 Anion Gap 6 (5-15) 06/06/20 05:33 BUN 11 mg/dL (7-18) 06/06/20 05:33 Creatinine 1.02 mg/dL (0.70-1.30) 06/06/20 05:33 Estim Creat Clear Calc 89.60 ml/min 06/06/20 05:33 Est GFR (MDRD) Af Amer 108 mL/min (>60) 06/06/20 05:33 Est GFR (MDRD) Non-Af 89 mL/min (>60) 06/06/20 05:33 BUN/Creatinine Ratio 10.8 RATIO (10-20) 06/06/20 05:33 Glucose 109 mg/dL (74-106) H 06/06/20 05:33 Lactic Acid 1.3 mmol/L (0.4-1.9) 06/06/20 05:33 Calcium 9.6 mg/dL (8.5-10.1) 06/06/20 05:33 Total Bilirubin 0.70 mg/dL (0.20-1.00) 06/06/20 05:33 AST 16 U/L (15-37) 06/06/20 05:33 ALT 22 U/L (16-61) 06/06/20 05:33 Alkaline Phosphatase 100 U/L (45-117) 06/06/20 05:33 Total Protein 8.1 g/dL (6.4-8.2) 06/06/20 05:33 Albumin 3.8 g/dL (3.2-5.0) 06/06/20 05:33 Globulin 4.3 g/dL (2.2-4.2) H 06/06/20 05:33 Albumin/Globulin Ratio 0.9 RATIO (0.9-2.4) 06/06/20 05:33 Lipase 88 U/L (73-393) 06/06/20 05:33 - Medical Decision Making IV was established and the patient received nausea medication and pain medicine. I also gave IV fluids. CT of the abdomen pelvis with oral contrast was ordered. While awaiting the CT scan. Patient had some hypoxia and hypoventilation. He received supplemental oxygen and stimulation. He has since recovered. At this point care the patient will be signed out to the oncoming physician for check a CT scan and final disposition. Patient is aware that if he has a small bowel obstruction the recommendation will be NG tube and admission. ED Disposition - Plan for ED Patient: Diagnosis: Acute abdominal pain, Crohn's disease Referrals: Care Physician,No Primary [Primary Care Provider] -
[2020-06-06] MEDS: 0.9% Normal Saline 1,000 ML 200 ML IV (05:46)
[2020-06-06] MEDS: HYDROmorphone 1 MG/ML Syringe IV (05:46)
[2020-06-06 05:47] LABS: Absolute Lymphocyte Count 0.74 X10^3/uL (0.83-4.51); Absolute Neutrophil Count 7.8 X10^3/uL (2.0-7.7); Basophil# 0.03 X10^3/uL; Basophil% 0.3 % (0-1); Eosinophil# 0.02 X10^3/uL; Eosinophils% 0.2 % (0-5); Hematocrit 44.7 % (40-54); Hemoglobin 14.3 g/dL (13.0-16.5); Lymphocyte # 0.74 X10^3/ul (4.0); Lymphocyte % 8.1 % (19-41); Mean Corpuscular Hgb 25.2 pg (27.0-32.0); Mean Corpuscular Volume 78.8 fL (80-94); Mean Platelet Vol. 10.1 fl (6.2-12.0); Monocyte# 0.54 X10^3/uL; Monocyte% 5.9 % (0-10); NRBC Flagged by Analyzer 0 % (0-5); Neutrophil % 85.2 % (47-70); Platelet Count 372 K/mm3 (150-450); RBC Distribution Width CV 16.4 % (11.6-14.6); RBC Distribution Width SD 46.8 fl (35.1-43.9); Red Blood Count 5.67 M/mm3 (4.6-6.2); White Blood Count 9.2 K/mm3 (4.4-11.0)
[2020-06-06] MEDS: Ondansetron 4 MG/2 ML Vial IV ×2 (05:47→20:12)
[2020-06-06 06:10] LABS: ALB/GLOB Ratio 0.9 RATIO (0.9-2.4); AST(SGOT) 16 U/L (15-37); Alanine Aminotransfer ALT/SGPT 22 U/L (16-61); Albumin, Serum 3.8 g/dL (3.2-5.0); Alkaline Phosphatase 100 U/L (45-117); Anion Gap 6 (5-15); BUN 11 mg/dL (7-18); BUN/Creat Ratio 10.8 RATIO (10-20); Calcium,Total 9.6 mg/dL (8.5-10.1); Chloride 103 mmol/L (98-107); Creatinine, Serum 1.02 mg/dL (0.70-1.30); EST Glomerular Filtration Rate 89 mL/min (>60); Est Glom Filt Rate - Afr Amer 108 mL/min (>60); Globulin 4.3 g/dL (2.2-4.2); Glucose 109 mg/dL (74-106); Lipase 88 U/L (73-393); Potassium 3.8 mmol/L (3.5-5.1); Protein, Total 8.1 g/dL (6.4-8.2); Sodium Level 136 mmol/L (136-145)
[2020-06-06 06:17] LABS: Lactic Acid 1.3 mmol/L (0.4-1.9)
[2020-06-06] MEDS: MethylPREDNISolone 125 MG/2 ML Vial IV (08:52)
--- NOTE | 2020-06-06 09:43 | PCM.HP.STD ---
History of Present Illness Date of Admission: 06/06/20 The patient is a 34 year old M [] Past Medical History Medical History: Medical History (Last Reviewed 06/06/20 @ 09:[address] Yulisa Dye DO) Crohn's disease K50.90 Allergies morphine Adverse Reaction (Verified 06/06/20 05:11) Itching Home Medications: Ambulatory Orders Medication Instructions Recorded Ondansetron HCl [Zofran] 8 mg PO TID PRN #20 tab 07/26/19 Surgical History: - - Bowel resection Lives: With Family Smoking Status: Light Smoker (<10/day) Tobacco Use: Cigars Alcohol: Occasional Drugs: - - THC gummies - *Family History Maternal History Items: - - His maternal grandmother has IBS. Paternal History Items: - - He denies any pertinent medical history Review of Systems Constitutional: Reports: Anorexia, Weakness. Denies: Chills, Fever, Night Sweats, Malaise, Weight Change, Fatigue Eyes: Denies: Blurred vision, Drainage, Eyelid Inflammation, Pain, Redness, Vision Change HEENT: Denies: Difficulty Hearing, Head Aches, Nasal bleeding, Nasal Congestion, Post Nasal Drip, Sinus Congestion, Sinus Drainage, Sore Throat, Visual Changes Cardiovascular: Denies: Chest Pain, Claudication, Chest Pressure, Chest Tightness, Edema, Heaviness, Light Headedness, Orthopnea, Palpitations, Paroxysmal Noc. Dyspnea, Syncope Respiratory: Denies: Cough, Hemoptysis, Pleuritic Pain, Shortness of Breath, Shortness of breath at rest, Shortness of breath upon exertion, Sputum production, Wheezing Gastrointestinal: Reports: Abdominal Pain, Constipation - last BM Friday, Nausea, Vomiting. Denies: Diarrhea, Dyspepsia, Hematemesis, Hematochezia, Melena Genitourinary: Denies: Dysuria, Frequency, Hematuria, Hesitancy, Incontinence, Nocturia Musculoskeletal: Denies: Back Pain, Joint Pain, Joint stiffness, Joint swelling, Leg Pain, Muscle pain, Neck Pain Skin: Denies: Dryness, Jaundice, Lesions, Pruritis, Rash, Skin Changes, Wounds Neurological: Denies: Balance problems, Blurred vision, Double vision, Change in Speech, Slurred speech, Confusion, Difficulty swallowing, Focal weakness, Headaches, Incoordination, Numbness, Tingling, Tremor, Seizures Psychiatric: Denies: Anxiety, Depression Endocrine: Denies: Change in Body Habitus, Heat/ Cold Intolerance, Polydipsia, Polyuria Hematologic/ Lymphatic: Denies: Adenopathy, Anemia, Easy Bruising, Easy Bleeding, Petechiae, Purpura VTE Information - Inpt Only VTE Present on Admission: No VTE Mechan Device Prophylaxis: None VTE Pharm Prophylaxis ordered?: No Patient Problems: Active and Suspected Problems (Last Updated 07/24/19 @ 04:[address] Bhavesh Gaitan MD) Acute abdominal pain (Acute) Crohn's disease (Acute) - Physical Exam Vitals/I&O's: Vital Signs Temp Pulse Resp BP Pulse Ox 98.2 F 81 16 103/67 98 06/06/20 09:06 06/06/20 09:06 06/06/20 09:06 06/06/20 09:06 06/06/20 09:06 Oxygen Flow Rate (L/min) 2 Oxygen Delivery Method Room Air Weight: 76.7 kg Body Mass Index (BMI) 28.1 General: Alert, Oriented x3, Cooperative, No apparent distress, Well developed, Well nourished HEENT: Atraumatic, PERRLA, EOMI, Normocephalic, EAC Clear Oral: Moist Mucosa, No Gingival or Mucosal Lesions/ Ulcerations Neck: Supple, No JVD, Negative Carotid Bruits, Negative Hepatojugular Reflux, No Nodes, Trachea Midline, Thyroid Normal Size and Texture Lungs: Clear to auscultation, Normal air movement, No rhonchi, No wheeze, No rales Cardiovascular: Regular rate, Regular Rhythm, Normal S1, Normal S2, No murmurs, No Ectopic Activity, No rub noted, No Gallop Abdomen: Soft, Non-Distended, No Hepato-splenomegaly, Hypoactive Bowel Sounds - but present, Tender - diffusely but most tender LLQ Extremities: No clubbing, No cyanosis, No edema, Capillary Refill Less than 3 Seconds, Peripheral Pulses Normal Skin: No rashes, No breakdown Musculoskeletal: No Tenderness to Palpation of Joints or Extremities, No Muscle Wasting Lymphatic: No Cervical, Supraclavicular, or Inguinal Adenopathy Neurological: Cranial nerves II-XII grossly intact, Deep Tendon Reflexes 2+/4 and Symmetrical, Neuro grossly intact, Motor Exam 5/5 strength throughout, Muscle tone normal, Sensory exam intact to light touch and pain, Coordination normal Psych/Mental Status: Normal Affect, Appropriate Laboratory Results 06/06/20 05:33: WBC 9.2, RBC 5.67, Hgb 14.3, Hct 44.7, MCV 78.8 L, MCH 25.2 L, MCHC 32.0, RDW Std Deviation 46.8 H, RDW Coeff of Latricia 16.4 H, Plt Count 372, MPV 10.1, Immature Gran % (Auto) 0.300, Neut % (Auto) 85.2 H, Lymph % (Auto) 8.1 L, [place] % (Auto) 5.9, Eos % (Auto) 0.2, Baso % (Auto) 0.3, Absolute Neuts (auto) 7.8 H, Absolute Lymphs (auto) 0.74 L, Nucleated RBC % 0 06/06/20 05:33: Sodium 136, Potassium 3.8, Chloride 103, Carbon Dioxide 27.0, Anion Gap 6, BUN 11, Creatinine 1.02, Estim Creat Clear Calc 89.60, Est GFR (MDRD) Af Amer 108, Est GFR (MDRD) Non-Af 89, BUN/Creatinine Ratio 10.8, Glucose 109 H, Calcium 9.6, Total Bilirubin 0.70, AST 16, ALT 22, Alkaline Phosphatase 100, Total Protein 8.1, Albumin 3.8, Globulin 4.3 H, Albumin/Globulin Ratio 0.9, Lipase 88 06/06/20 05:33: Lactic Acid 1.3 Current Medications Sodium Chloride () 1,000 mls @ 200 mls/hr IV .Q5H VITO Last Admin: 06/06/20 05:46 Dose: 200 mls/hr Documented by: Sodium Chloride () 250 mls @ 15 mls/hr IV .[id number] PRN PRN Reason: Saline Flush Sodium Chloride (0.9% Saline Lock 10 Ml Syringe) 10 - 40 ml IV UD PRN PRN Reason: SALINE FLUSH Assessment/Plan All Active Problems (Last Updated 07/24/19 @ 04:[address] 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
--- NOTE | 2020-06-06 09:58 | PCM.CONS.GEN ---
Reason for Consult Date of Consultation: 06/06/20 History of Present Illness: The patient is a 34 year old M presented to the ER due to abdominal pain and nausea and vomiting. Patient states he has had the abdominal pain for about a week and a nausea and vomiting for the last [address] abdomen pelvis does show thickening of the ileum and partial small bowel obstruction. Patient does have a history of Crohn's disease. Patient states back in [place] at [facility] he did have a large amount of small bowel removed in either 2013 or . Patient had previously been on Humira about 2 years ago; however due to mental side effects patient stopped the medication. Patient's GI doctor at that time was in [place] and he had no other further recommendations so last time he saw him was about 2 years ago. Patient is currently not on any maintenance medication. Last time he had Crohn's flare he presented in July of this year in the partial small bowel obstruction was relieved with steroids patient was referred to a GI doctor at [facility] however his appointment was canceled or they moved appointments to times where he could not make it thus he never saw anyone.Patient states his pain prior to coming in was a 10/10 currently is about an 8/10 IV pain meds do help for a short while. Patient states that he knew this was chronic coming on as he started to have smaller bowel movements and then the abdominal pain began. Past Medical History Medical History: Medical History (Last Reviewed 06/06/20 @ 09:[address] Yulisa Dye, DO) Crohn's disease K50.90 Allergies morphine Adverse Reaction (Verified 06/06/20 05:11) Itching Home Medications: Ambulatory Orders Medication Instructions Recorded Ondansetron HCl [Zofran] 8 mg PO TID PRN #20 tab 07/26/19 Surgical History: - - Bowel resection Lives: With Family Smoking Status: Light Smoker (<10/day) Tobacco Use: Cigars Alcohol: Occasional Drugs: - - THC gummies - *Family History Maternal History Items: - - His maternal grandmother has IBS. Paternal History Items: - - He denies any pertinent medical history Review of Systems Constitutional: Reports: Anorexia Eyes: Denies: Blurred vision HEENT: Denies: Difficulty Swallowing Cardiovascular: Denies: Chest Pain Respiratory: Denies: Cough Gastrointestinal: Reports: Abdominal Pain, Constipation, Nausea, Vomiting Genitourinary: Denies: Dysuria Skin: Denies: Jaundice Neurological: Denies: Balance problems Psychiatric: Denies: Anxiety Hematologic/ Lymphatic: Denies: Easy Bleeding Patient Problems: Active and Suspected Problems (Last Reviewed 06/06/20 @ 09:[address] Yulisa Dye DO) Acute abdominal pain (Acute) Crohn's disease (Acute) - Physical Exam Vitals/I&O's: Vital Signs Temp Pulse Resp BP Pulse Ox 98.2 F 81 16 103/67 98 06/06/20 09:06 06/06/20 09:06 06/06/20 09:06 06/06/20 09:06 06/06/20 09:06 Oxygen Flow Rate (L/min) 2 Oxygen Delivery Method Room Air Weight: 169 lb 1.513 oz Body Mass Index (BMI) 28.1 General: Alert, Oriented x3, Cooperative, No apparent distress Lungs: Normal air movement Cardiovascular: Regular rate Abdomen: Soft, Non-Distended, Tender - Diffusely, mainly in the bilateral upper quadrant, Voluntary guarding, no rebound Extremities: No clubbing, No cyanosis, No edema Neurological: Cranial nerves II-XII grossly intact Psych/Mental Status: Normal Affect Laboratory Results 06/06/20 05:33: WBC 9.2, RBC 5.67, Hgb 14.3, Hct 44.7, MCV 78.8 L, MCH 25.2 L, MCHC 32.0, RDW Std Deviation 46.8 H, RDW Coeff of Latricia 16.4 H, Plt Count 372, MPV 10.1, Immature Gran % (Auto) 0.300, Neut % (Auto) 85.2 H, Lymph % (Auto) 8.1 L, [place] % (Auto) 5.9, Eos % (Auto) 0.2, Baso % (Auto) 0.3, Absolute Neuts (auto) 7.8 H, Absolute Lymphs (auto) 0.74 L, Nucleated RBC % 0 06/06/20 05:33: Sodium 136, Potassium 3.8, Chloride 103, Carbon Dioxide 27.0, Anion Gap 6, BUN 11, Creatinine 1.02, Estim Creat Clear Calc 89.60, Est GFR (MDRD) Af Amer 108, Est GFR (MDRD) Non-Af 89, BUN/Creatinine Ratio 10.8, Glucose 109 H, Calcium 9.6, Total Bilirubin 0.70, AST 16, ALT 22, Alkaline Phosphatase 100, Total Protein 8.1, Albumin 3.8, Globulin 4.3 H, Albumin/Globulin Ratio 0.9, Lipase 88 06/06/20 05:33: Lactic Acid 1.3 Current Medications Diphenhydramine HCl (Diphenhydramine 50 Mg/Ml Syringe) 25 mg IV Q6H PRN PRN PRN Reason: ITCHING Hydromorphone HCl (Hydromorphone 0.5 Mg/0.5 Ml Syringe) 0.5 mg IV Q4H PRN PRN PRN Reason: Pain Score 6-10 Sodium Chloride () 250 mls @ 15 mls/hr IV .[id number] PRN PRN Reason: Saline Flush Lactated Ringer's () 1,000 mls @ 100 mls/hr IV .Q10H VITO Melatonin (Melatonin 3 Mg Tablet) 3 mg PO QHS PRN PRN PRN Reason: INSOMNIA Methylprednisolone (Methylprednisolone 125 Mg/2 Ml Vial) 60 mg IV DAILY VITO Ondansetron HCl (Ondansetron 4 Mg/2 Ml Vial) 4 mg IV Q8H PRN PRN PRN Reason: NAUSEA/VOMITING Sodium Chloride (0.9% Saline Lock 10 Ml Syringe) 10 - 40 ml IV UD PRN PRN Reason: SALINE FLUSH Assessment/Plan All Active Problems (Last Reviewed 06/06/20 @ 09:[address] Yulisa Dye, DO) Acute abdominal pain (Acute) SBO (small bowel obstruction) (Acute) Crohn's disease (Acute) 34 y/o M with PSBO due to Crohn's flare Continue NPO/IVF IV steriods, hopefully will resolve with conservative management Recommend if pt were to need surgery to go to a tertiary center as he has already had a large amount of sb removed at [facility] in [place] in . Chiquis Santiago M.D. Pager: [phone] [facility] [address] [place] [address], [facility], [address] [place] [address] Office: [phone]
[2020-06-06] MEDS: Lactated Ringers 1,000 ML 100 ML IV ×2 (10:06→19:40)
[2020-06-06] MEDS: 0.9% Saline Lock 10 ML Syringe IV ×3 (10:06→16:47)
[2020-06-06] MEDS: HYDROmorphone 0.5 MG/0.5 ML SYRINGE IV ×4 (10:12→20:12)
[2020-06-06] MEDS: MELATONIN 3 MG TABLET PO (20:12)
--- NOTE | 2020-06-07 00:46 | PCS.PANDOC ---
PANDEMIC DOCUMENTATION INITIATED: Date: 06/06/20 Time: 921
[2020-06-07 02:20] VITALS: BP 97/52; PULSE 68; RESP 18; TEMP 36.4; O2SAT 95
[2020-06-07] MEDS: Lactated Ringers 1,000 ML 100 ML IV ×2 (05:45→16:06)
[2020-06-07 06:31] LABS: Absolute Lymphocyte Count 0.79 X10^3/uL (0.83-4.51); Absolute Neutrophil Count 3.6 X10^3/uL (2.0-7.7); Basophil# 0.01 X10^3/uL; Basophil% 0.2 % (0-1); Eosinophil# 0.02 X10^3/uL; Eosinophils% 0.4 % (0-5); Hematocrit 36.8 % (40-54); Hemoglobin 11.3 g/dL (13.0-16.5); Lymphocyte # 0.79 X10^3/ul (4.0); Lymphocyte % 16.4 % (19-41); Mean Corp Hgb Conc 30.7 g/dL (32-36); Mean Corpuscular Hgb 24.4 pg (27.0-32.0); Mean Corpuscular Volume 79.3 fL (80-94); Mean Platelet Vol. 10.2 fl (6.2-12.0); Monocyte# 0.42 X10^3/uL; Monocyte% 8.7 % (0-10); NRBC Flagged by Analyzer 0 % (0-5); Neutrophil # 3.57 X10^3/uL (2.7-7.7); Neutrophil % 74.1 % (47-70); Platelet Count 243 K/mm3 (150-450); RBC Distribution Width SD 46.4 fl (35.1-43.9); Red Blood Count 4.64 M/mm3 (4.6-6.2); White Blood Count 4.8 K/mm3 (4.4-11.0)
--- NOTE | 2020-06-07 06:42 | PN.SURG_ITS ---
Patient Problems: Active and Suspected Problems (Last Reviewed 06/06/20 @ 09:[address] Yulisa Dye, DO) Acute abdominal pain (Acute) Crohn's disease (Acute) Subjective: Patient was currently in the restroom, did state abdominal pain is much better did have a small amount of bowel movement and flatus. - Physical Exam Vitals/I&O's: Vital Signs Temp Pulse Resp BP Pulse Ox 97.9 F 77 18 98/62 93 06/06/20 20:10 06/06/20 20:10 06/06/20 20:10 06/06/20 20:10 06/06/20 20:10 Oxygen Flow Rate (L/min) 2 Oxygen Delivery Method Room Air Weight: 169 lb 1.513 oz Body Mass Index (BMI) 28.1 Intake and Output for Last 24 Hours 06/05/20 06/06/20 06/07/20 23:59 23:59 23:59 Intake Total 1876.67 / 1876.67 Output Total 400 / 400 1800 / 1800 Balance 1476.67 / 1476.67 -1800 / -1800 Laboratory Results 06/07/20 05:45: WBC Pending, RBC Pending, Hgb Pending, Hct Pending, MCV Pending, MCH Pending, MCHC Pending, RDW Std Deviation Pending, RDW Coeff of Latricia Pending, Plt Count Pending, Neut % (Auto) Pending, Absolute Neuts (auto) Pending 06/07/20 05:45: Sodium Pending, Potassium Pending, Chloride Pending, Carbon Dioxide Pending, Anion Gap Pending, BUN Pending, Creatinine Pending, Est GFR (MDRD) Af Amer Pending, Est GFR (MDRD) Non-Af Pending, BUN/Creatinine Ratio Pending, Glucose Pending, Calcium Pending, Total Bilirubin Pending, AST Pending, ALT Pending, Alkaline Phosphatase Pending, Total Protein Pending, Albumin Pending Current Medications Diphenhydramine HCl (Diphenhydramine 50 Mg/Ml Syringe) 25 mg IV Q6H PRN PRN PRN Reason: ITCHING Hydromorphone HCl (Hydromorphone 0.5 Mg/0.5 Ml Syringe) 0.5 mg IV Q2H PRN PRN PRN Reason: Pain Score 6-10 Last Admin: 06/06/20 20:12 Dose: 0.5 mg Documented by: Sodium Chloride () 250 mls @ 15 mls/hr IV .[id number] PRN PRN Reason: Saline Flush Lactated Ringer's () 1,000 mls @ 100 mls/hr IV .Q10H VITO Last Admin: 06/06/20 19:40 Dose: 100 mls/hr Documented by: Melatonin (Melatonin 3 Mg Tablet) 3 mg PO QHS PRN PRN PRN Reason: INSOMNIA Last Admin: 06/06/20 20:12 Dose: 3 mg Documented by: Methylprednisolone (Methylprednisolone 125 Mg/2 Ml Vial) 60 mg IV DAILY VITO Last Admin: 06/06/20 10:23 Dose: Not Given Documented by: Ondansetron HCl (Ondansetron 4 Mg/2 Ml Vial) 4 mg IV Q8H PRN PRN PRN Reason: NAUSEA/VOMITING Last Admin: 06/06/20 20:12 Dose: 4 mg Documented by: Sodium Chloride (0.9% Saline Lock 10 Ml Syringe) 10 - 40 ml IV UD PRN PRN Reason: SALINE FLUSH Last Admin: 06/06/20 16:47 Dose: 10 ml Documented by: Medical Necessity - Tobacco Use Smoking Status: Light Smoker (<10/day) Tobacco Use: Cigars Assessment/Plan All Active Problems (Last Reviewed 06/06/20 @ 09:[address] Yulisa Dye, DO) Acute abdominal pain (Acute) SBO (small bowel obstruction) (Acute) Crohn's disease (Acute) 34 y/o M with PSBO due to Crohn's flare Partial small bowel obstruction appears to be resolving okay for clears but would not advance past fulls today Continue IV steriods, hopefully will resolve with conservative management Recommend if pt were to need surgery to go to a tertiary center as he has already had a large amount of sb removed at [facility] in [place] in . Chiquis Santiago M.D. Pager: [phone] [facility] [address] [place] [address], Outpatient [facility]ilion, [address] [place] [address] Office: [phone] Inpatient E&M: [id number] [facility] Hosp L2
[2020-06-07 07:04] LABS: ALB/GLOB Ratio 0.9 RATIO (0.9-2.4); AST(SGOT) 14 U/L (15-37); Alanine Aminotransfer ALT/SGPT 15 U/L (16-61); Albumin, Serum 2.8 g/dL (3.2-5.0); Alkaline Phosphatase 71 U/L (45-117); Anion Gap 5 (5-15); BUN 9 mg/dL (7-18); BUN/Creat Ratio 12.4 RATIO (10-20); Calcium,Total 8.2 mg/dL (8.5-10.1); Chloride 106 mmol/L (98-107); Creatinine, Serum 0.73 mg/dL (0.70-1.30); EST Glomerular Filtration Rate 132 mL/min (>60); Est Glom Filt Rate - Afr Amer 159 mL/min (>60); Globulin 3.2 g/dL (2.2-4.2); Glucose 82 mg/dL (74-106); Potassium 3.7 mmol/L (3.5-5.1); Sodium Level 138 mmol/L (136-145)
[2020-06-07 08:06] VITALS: BP 95/53; PULSE 75; RESP 16; TEMP 36.7; O2SAT 96
[2020-06-07] MEDS: MethylPREDNISolone 125 MG/2 ML Vial 60 MG IV (08:14)
[2020-06-07] MEDS: 0.9% Saline Lock 10 ML Syringe IV ×2 (08:15→22:20)
--- NOTE | 2020-06-07 10:08 | CASEMGMT ---
Social Work Note Pt is listed as being self-pay. SW in to speak with pt. SW introduced self and role at [facility]. Pt is alert and orientated, answers questions appropriately. Pt confirms he is self-pay, has no insurance. 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 Pt states that he has applied for Medicaid but makes too much money. SW asked pt how much he makes a year and pt states it just depends. Pt states does have some concerns with paying bills when he is not working. SW provided pt with financial resources including HCAP application, Medicaid Application, [facility] information, [employer] People, [place] [address], Rx assistance programs including Good Rx and Prescription [employer]. Pt thanked this worker, denied additional needs or concerns at this time. Sabi Singleton STEAM TURBINE ASSEMBLER, STRATEGY PLANNING CONSULTANT
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
[2020-06-07 13:55] VITALS: BP 119/64; PULSE 87; RESP 16; TEMP 36.7; O2SAT 94
[2020-06-07 13:56] VITALS: PULSE 80
--- NOTE | 2020-06-07 15:10 | PCM.PN.HOSP ---
Patient Problems: Active and Suspected Problems (Last Reviewed 06/06/20 @ 09:[address] Yulisa Dye DO) Acute abdominal pain (Acute) Crohn's disease (Acute) Reason for Visit: pSBO Subjective: feeling better. Though abdomen is steam tender, but now less distended. some flatus. Vitals/I&O's: Vital Signs Temp Pulse Resp BP Pulse Ox 36.7 C 80 16 119/64 94 06/07/20 13:55 06/07/20 13:56 06/07/20 13:55 06/07/20 13:55 06/07/20 13:55 Oxygen Flow Rate (L/min) 2 Oxygen Delivery Method Room Air Weight: 76.7 kg Body Mass Index (BMI) 28.1 Intake and Output for Last 24 Hours 06/05/20 06/06/20 06/07/20 23:59 23:59 23:59 Intake Total 1876.67 / 1876.67 1000 / 1000 Output Total 400 / 400 1800 / 1800 Balance 1476.67 / 1476.67 -800 / -800 General: Alert, No apparent distress HEENT: Atraumatic, Normocephalic Oral: Moist Mucosa, No Gingival or Mucosal Lesions/ Ulcerations Neck: No Nodes, Thyroid Normal Size and Texture Lungs: Clear to auscultation, Normal air movement, No rhonchi, No wheeze Cardiovascular: Regular rate, Regular Rhythm, Normal S1, Normal S2, No murmurs Abdomen: Soft, No Hepato-splenomegaly, Hypoactive Bowel Sounds, Distended, Tender Extremities: No edema, No Calf Tenderness Psych/Mental Status: Normal Affect, Appropriate Laboratory Results 06/07/20 05:45: WBC 4.8, RBC 4.64, Hgb 11.3 L, Hct 36.8 L, MCV 79.3 L, MCH 24.4 L, MCHC 30.7 L, RDW Std Deviation 46.4 H, RDW Coeff of Latricia 16.0 H, Plt Count 243, MPV 10.2, Immature Gran % (Auto) 0.200, Neut % (Auto) 74.1 H, Lymph % (Auto) 16.4 L, [place] % (Auto) 8.7, Eos % (Auto) 0.4, Baso % (Auto) 0.2, Absolute Neuts (auto) 3.6, Absolute Lymphs (auto) 0.79 L, Nucleated RBC % 0 06/07/20 05:45: Sodium 138, Potassium 3.7, Chloride 106, Carbon Dioxide 27.0, Anion Gap 5, BUN 9, Creatinine 0.73, Estim Creat Clear Calc 125.20, Est GFR (MDRD) Af Amer 159, Est GFR (MDRD) Non-Af 132, BUN/Creatinine Ratio 12.4, Glucose 82, Calcium 8.2 L, Total Bilirubin 0.70, AST 14 L, ALT 15 L, Alkaline Phosphatase 71, Total Protein 6.0 L, Albumin 2.8 L, Globulin 3.2, Albumin/Globulin Ratio 0.9 Current Medications Diphenhydramine HCl (Diphenhydramine 50 Mg/Ml Syringe) 25 mg IV Q6H PRN PRN PRN Reason: ITCHING Hydromorphone HCl (Hydromorphone 0.5 Mg/0.5 Ml Syringe) 0.5 mg IV Q2H PRN PRN PRN Reason: Pain Score 6-10 Last Admin: 06/06/20 20:12 Dose: 0.5 mg Documented by: Sodium Chloride () 250 mls @ 15 mls/hr IV .[id number] PRN PRN Reason: Saline Flush Lactated Ringer's () 1,000 mls @ 100 mls/hr IV .Q10H [facility] Last Admin: 06/07/20 05:45 Dose: 100 mls/hr Documented by: Melatonin (Melatonin 3 Mg Tablet) 3 mg PO QHS PRN PRN PRN Reason: INSOMNIA Last Admin: 06/06/20 20:12 Dose: 3 mg Documented by: Methylprednisolone (Methylprednisolone 125 Mg/2 Ml Vial) 60 mg IV DAILY [facility] Last Admin: 06/07/20 08:14 Dose: 60 mg Documented by: Ondansetron HCl (Ondansetron 4 Mg/2 Ml Vial) 4 mg IV Q8H PRN PRN PRN Reason: NAUSEA/VOMITING Last Admin: 06/06/20 20:12 Dose: 4 mg Documented by: Sodium Chloride (0.9% Saline Lock 10 Ml Syringe) 10 - 40 ml IV UD PRN PRN Reason: SALINE FLUSH Last Admin: 06/07/20 08:15 Dose: 10 ml Documented by: STROKE Vital Signs/Narrative: Vital Signs Temp Pulse Resp BP Pulse Ox 06/07/20 13:56 80 06/07/20 13:55 36.7 C 87 16 119/64 94 Medical Necessity - Tobacco Use Smoking Status: Light Smoker (<10/day) Tobacco Use: Cigars Assessment/Plan All Active Problems (Last Reviewed 06/06/20 @ 09:[address] Yulisa Dye, DO) Acute abdominal pain (Acute) SBO (small bowel obstruction) (Acute) Crohn's disease (Acute) 1. pSBO improving slowly likely 2/2 crohn's exacerbation continue supportive mgmt if worsens, will require TF to tertiary facility Surgery following 2. Acute crohn's exacerbation on methylpred 3. VTE prophylaxis: LMWH Inpatient E&M: 75167 Subs Hosp L2
[2020-06-07 20:30] VITALS: BP 98/59; PULSE 65; RESP 16; TEMP 36.9; O2SAT 95
[2020-06-07] MEDS: MELATONIN 3 MG TABLET PO (22:20)
[2020-06-07] MEDS: Ondansetron 4 MG/2 ML Vial IV (22:20)
[2020-06-08] MEDS: Lactated Ringers 1,000 ML 100 ML IV (02:12)
[2020-06-08 02:14] VITALS: BP 119/78; PULSE 63; RESP 16; TEMP 36.6; O2SAT 96
[2020-06-08 05:57] LABS: Absolute Lymphocyte Count 1.12 X10^3/uL (0.83-4.51); Absolute Neutrophil Count 2.8 X10^3/uL (2.0-7.7); Basophil# 0.02 X10^3/uL; Basophil% 0.4 % (0-1); Eosinophil# 0.05 X10^3/uL; Eosinophils% 1.1 % (0-5); Hematocrit 35.4 % (40-54); Lymphocyte # 1.12 X10^3/ul (4.0); Lymphocyte % 24.2 % (19-41); Mean Corp Hgb Conc 31.1 g/dL (32-36); Mean Corpuscular Hgb 24.6 pg (27.0-32.0); Mean Corpuscular Volume 79.2 fL (80-94); Monocyte# 0.64 X10^3/uL; Monocyte% 13.9 % (0-10); NRBC Flagged by Analyzer 0 % (0-5); Neutrophil # 2.79 X10^3/uL (2.7-7.7); Neutrophil % 60.4 % (47-70); Platelet Count 239 K/mm3 (150-450); RBC Distribution Width CV 16.3 % (11.6-14.6); RBC Distribution Width SD 46.8 fl (35.1-43.9); Red Blood Count 4.47 M/mm3 (4.6-6.2); White Blood Count 4.6 K/mm3 (4.4-11.0)
[2020-06-08 06:24] LABS: ALB/GLOB Ratio 0.9 RATIO (0.9-2.4); AST(SGOT) 11 U/L (15-37); Alanine Aminotransfer ALT/SGPT 13 U/L (16-61); Albumin, Serum 2.8 g/dL (3.2-5.0); Alkaline Phosphatase 64 U/L (45-117); Anion Gap 2 (5-15); BUN 10 mg/dL (7-18); BUN/Creat Ratio 11.6 RATIO (10-20); Calcium,Total 8.3 mg/dL (8.5-10.1); Chloride 109 mmol/L (98-107); Creatinine, Serum 0.86 mg/dL (0.70-1.30); EST Glomerular Filtration Rate 108 mL/min (>60); Est Glom Filt Rate - Afr Amer 131 mL/min (>60); Estimated Creatinine Clearance 106.27 ml/min; Globulin 3.1 g/dL (2.2-4.2); Glucose 87 mg/dL (74-106); Potassium 3.5 mmol/L (3.5-5.1); Protein, Total 5.9 g/dL (6.4-8.2); Sodium Level 140 mmol/L (136-145)
--- NOTE | 2020-06-08 08:40 | PCM.PN.SRG ---
Patient Problems: Active and Suspected Problems (Last Reviewed 06/06/20 @ 09:[address] Yulisa Dye, DO) Acute abdominal pain (Acute) Crohn's disease (Acute) Subjective: Patient denies any abdominal pain, tolerated full's - Physical Exam Vitals/I&O's: Vital Signs Temp Pulse Resp BP Pulse Ox 97.9 F 63 16 119/78 96 06/08/20 02:14 06/08/20 02:14 06/08/20 02:14 06/08/20 02:14 06/08/20 02:14 Oxygen Flow Rate (L/min) 2 Oxygen Delivery Method Room Air Weight: 169 lb 1.513 oz Body Mass Index (BMI) 28.1 Intake and Output for Last 24 Hours 06/06/20 06/07/20 06/08/20 23:59 23:59 23:59 Intake Total 1876.67 / 1876.67 2000 / 2200 1200 / 1200 Output Total 400 / 400 1800 / 1800 Balance 1476.67 / 1476.67 200 / 400 1200 / 1200 General: Alert, Oriented x3, Cooperative, No apparent distress HEENT: Atraumatic Lungs: Normal air movement Cardiovascular: Regular rate Abdomen: Soft, Non Tender, Non-Distended Neurological: Cranial nerves II-XII grossly intact Psych/Mental Status: Normal Affect Laboratory Results 06/08/20 05:50: WBC 4.6, RBC 4.47 L, Hgb 11.0 L, Hct 35.4 L, MCV 79.2 L, MCH 24.6 L, MCHC 31.1 L, RDW Std Deviation 46.8 H, RDW Coeff of Latricia 16.3 H, Plt Count 239, MPV 10.0, Immature Gran % (Auto) 0.000, Neut % (Auto) 60.4, Lymph % (Auto) 24.2, [place] % (Auto) 13.9 H, Eos % (Auto) 1.1, Baso % (Auto) 0.4, Absolute Neuts (auto) 2.8, Absolute Lymphs (auto) 1.12, Nucleated RBC % 0 06/08/20 05:50: Sodium 140, Potassium 3.5, Chloride 109 H, Carbon Dioxide 29.0, Anion Gap 2 L, BUN 10, Creatinine 0.86, Estim Creat Clear Calc 106.27, Est GFR (MDRD) Af Amer 131, Est GFR (MDRD) Non-Af 108, BUN/Creatinine Ratio 11.6, Glucose 87, Calcium 8.3 L, Total Bilirubin 0.40, AST 11 L, ALT 13 L, Alkaline Phosphatase 64, Total Protein 5.9 L, Albumin 2.8 L, Globulin 3.1, Albumin/Globulin Ratio 0.9 Current Medications Diphenhydramine HCl (Diphenhydramine 50 Mg/Ml Syringe) 25 mg IV Q6H PRN PRN PRN Reason: ITCHING Enoxaparin Sodium (Enoxaparin 40 Mg/0.4 Ml Syringe) 40 mg SC DAILY [facility] Hydromorphone HCl (Hydromorphone 0.5 Mg/0.5 Ml Syringe) 0.5 mg IV Q2H PRN PRN PRN Reason: Pain Score 6-10 Last Admin: 06/06/20 20:12 Dose: 0.5 mg Documented by: Sodium Chloride () 250 mls @ 15 mls/hr IV .[id number] PRN PRN Reason: Saline Flush Lactated Ringer's () 1,000 mls @ 100 mls/hr IV .Q10H VITO Last Admin: 06/08/20 02:12 Dose: 100 mls/hr Documented by: Melatonin (Melatonin 3 Mg Tablet) 3 mg PO QHS PRN PRN PRN Reason: INSOMNIA Last Admin: 06/07/20 22:20 Dose: 3 mg Documented by: Methylprednisolone (Methylprednisolone 125 Mg/2 Ml Vial) 60 mg IV DAILY [facility] Last Admin: 06/07/20 08:14 Dose: 60 mg Documented by: Ondansetron HCl (Ondansetron 4 Mg/2 Ml Vial) 4 mg IV Q8H PRN PRN PRN Reason: NAUSEA/VOMITING Last Admin: 06/07/20 22:20 Dose: 4 mg Documented by: Sodium Chloride (0.9% Saline Lock 10 Ml Syringe) 10 - 40 ml IV UD PRN PRN Reason: SALINE FLUSH Last Admin: 06/07/20 22:20 Dose: 10 ml Documented by: Medical Necessity - Tobacco Use Smoking Status: Light Smoker (<10/day) Tobacco Use: Cigars Assessment/Plan All Active Problems (Last Reviewed 06/06/20 @ 09:[address] Yulisa Dye DO) Acute abdominal pain (Acute) SBO (small bowel obstruction) (Acute) Crohn's disease (Acute) 34 y/o M with PSBO due to Crohn's flare Patient denies any abdominal pain will advance to transitional diet have him stay on that for least a week at home Continue steroids on DC per hospitalist Patient will need to follow-up with GI as he does not currently have a GI doctor. Chiquis Santiago M.D. Pager: [phone] [facility] [address] [place] [address], [facility], [address] [place] [address] Office: [phone] Inpatient E&M: [id number] [facility] L2
--- NOTE | 2020-06-08 09:08 | PCM.DC ---
- Discharge Diagnoses Current Active Problems: Current Active and Chronic Problems (Last Reviewed 06/06/20 @ 09:[address] Yulisa Dye DO) Acute abdominal pain (Acute) Crohn's disease (Acute) You will use the following diet at home:: Other - bland soft diet. advance slowly as tolerated. Avoid steak. Ground meats ok. Call your doctor if you observe: - - Intractable abdominal pain. Allergies/Adverse Reactions: Allergies morphine Adverse Reaction (Verified 06/06/20 05:11) Itching Medications to take at Discharge Oxycodone [Oxyir] 5 mg PO Q6H PRN PRN 3 Days #12 tablet 06/08/20 Prednisone 10 mg PO DAILY #70 tab 06/08/20 The following prescriptions were given: Oxycodone [Oxyir] 5 mg PO Q6H PRN PRN 3 Days #12 tablet PRN Reason: Pain Score 6-10 Transmission Status: Sent to [facility] Prednisone 10 mg PO DAILY #70 tab Transmission Status: Pending to [facility] Primary Care Physician: Care Physician,No Primary [Primary Care Provider] - Test Results: Test results from this visit will be discussed in further detail at your follow-up appointment, if applicable. Please Follow Up With: Primary care physician When: at earliest convenience Please Follow Up With: Gastrenterology When: [place] [facility]: [phone], [facility] [phone].
--- NOTE | 2020-06-08 09:15 | PCM.DC.SUM ---
Discharge Date and Diagnosis - Problem List Patient Problems: Active and Suspected Problems (Last Reviewed 06/06/20 @ 09:[address] Yulisa Dye DO) Acute abdominal pain (Acute) Crohn's disease (Acute) Date of Admission: 06/06/20 Date of Discharge: 06/08/20 - Primary Discharge Diagnosis Acute Problems: Active Problems (Last Reviewed 06/06/20 @ 09:[address] Yulisa Dye DO) partial small bowel obstruction acute Crohn's exacerbation Hospital Course and Treatment Imaging Results: Clinical Impression(s) from Imaging Studies Abdomen/Pelvis CT 06/06/20 05:24 IMPRESSION: The findings are similar to 07/24/2019, with Crohn''''s disease affecting the jejunum and ileum, particularly the distal/terminal ileum. As on the previous study there is evidence of an acute flare with mild inflammatory changes, and mild partial small bowel obstruction. No perforation. Electronically Signed: Caio Kathy, at 7:44 EST Tel , Service support , [facility] Operations: None Procedures: None Summary of Care Provided: The patient is a 34 year old M estevan bae with excruciating upper abdominal pain. Patient had a CAT scan that showed a small bowel obstruction due to his Crohn's disease. Patient was started on methylprednisolone couple days, patient has steadily improved and is tolerating diet. Patient will be discharged with a month-long taper of prednisone as well as a short course of oxycodone as needed. Patient was to see gastroenterology when he was here in July, but due to the pandemic his appointment was rescheduled and then eventually was never rescheduled. Patient given information to follow-up with either the [facility] [place] [facility] Dr. He was originally supposed to follow-up with or patient be provided information to follow[facility] at [facility] [place] for gastroenterology follow-up. Is to contact and set up appointment for them as well as a primary care physician. [] Patient Problems: Active and Suspected Problems (Last Reviewed 06/06/20 @ 09:[address] Yulisa Dye DO) Acute abdominal pain (Acute) Crohn's disease (Acute) - Physical Exam Vitals/I&O's: Vital Signs Temp Pulse Resp BP Pulse Ox 36.6 C 63 16 119/78 96 06/08/20 02:14 06/08/20 02:14 06/08/20 02:14 06/08/20 02:14 06/08/20 02:14 Oxygen Flow Rate (L/min) 2 Oxygen Delivery Method Room Air Weight: 76.7 kg Body Mass Index (BMI) 28.1 Intake and Output for Last 24 Hours 06/06/20 06/07/20 06/08/20 23:59 23:59 23:59 Intake Total 1876.67 / 1876.67 2000 / 2200 1200 / 1200 Output Total 400 / 400 1800 / 1800 Balance 1476.67 / 1476.67 200 / 400 1200 / 1200 General: Alert, No apparent distress HEENT: Atraumatic, Normocephalic Oral: Moist Mucosa, No Gingival or Mucosal Lesions/ Ulcerations Neck: No Nodes, Thyroid Normal Size and Texture Lungs: Clear to auscultation, Normal air movement, No rhonchi, No wheeze Cardiovascular: Regular rate, Regular Rhythm, Normal S1, Normal S2 Abdomen: Bowel Sounds Present, Soft, Non Tender, Non-Distended Extremities: No edema, No Calf Tenderness Psych/Mental Status: Normal Affect, Appropriate Laboratory Results 06/08/20 05:50: WBC 4.6, RBC 4.47 L, Hgb 11.0 L, Hct 35.4 L, MCV 79.2 L, MCH 24.6 L, MCHC 31.1 L, RDW Std Deviation 46.8 H, RDW Coeff of Latricia 16.3 H, Plt Count 239, MPV 10.0, Immature Gran % (Auto) 0.000, Neut % (Auto) 60.4, Lymph % (Auto) 24.2, [place] % (Auto) 13.9 H, Eos % (Auto) 1.1, Baso % (Auto) 0.4, Absolute Neuts (auto) 2.8, Absolute Lymphs (auto) 1.12, Nucleated RBC % 0 06/08/20 05:50: Sodium 140, Potassium 3.5, Chloride 109 H, Carbon Dioxide 29.0, Anion Gap 2 L, BUN 10, Creatinine 0.86, Estim Creat Clear Calc 106.27, Est GFR (MDRD) Af Amer 131, Est GFR (MDRD) Non-Af 108, BUN/Creatinine Ratio 11.6, Glucose 87, Calcium 8.3 L, Total Bilirubin 0.40, AST 11 L, ALT 13 L, Alkaline Phosphatase 64, Total Protein 5.9 L, Albumin 2.8 L, Globulin 3.1, Albumin/Globulin Ratio 0.9 Current Medications Diphenhydramine HCl (Diphenhydramine 50 Mg/Ml Syringe) 25 mg IV Q6H PRN PRN PRN Reason: ITCHING Enoxaparin Sodium (Enoxaparin 40 Mg/0.4 Ml Syringe) 40 mg SC DAILY [facility] Hydromorphone HCl (Hydromorphone 0.5 Mg/0.5 Ml Syringe) 0.5 mg IV Q2H PRN PRN PRN Reason: Pain Score 6-10 Last Admin: 06/06/20 20:12 Dose: 0.5 mg Documented by: Sodium Chloride () 250 mls @ 15 mls/hr IV .[id number] PRN PRN Reason: Saline Flush Lactated Ringer's () 1,000 mls @ 100 mls/hr IV .Q10H [facility] Last Admin: 06/08/20 02:12 Dose: 100 mls/hr Documented by: Melatonin (Melatonin 3 Mg Tablet) 3 mg PO QHS PRN PRN PRN Reason: INSOMNIA Last Admin: 06/07/20 22:20 Dose: 3 mg Documented by: Methylprednisolone (Methylprednisolone 125 Mg/2 Ml Vial) 60 mg IV DAILY [facility] Last Admin: 06/07/20 08:14 Dose: 60 mg Documented by: Ondansetron HCl (Ondansetron 4 Mg/2 Ml Vial) 4 mg IV Q8H PRN PRN PRN Reason: NAUSEA/VOMITING Last Admin: 06/07/20 22:20 Dose: 4 mg Documented by: Sodium Chloride (0.9% Saline Lock 10 Ml Syringe) 10 - 40 ml IV UD PRN PRN Reason: SALINE FLUSH Last Admin: 06/07/20 22:20 Dose: 10 ml Documented by: Discharge Diet: No Restrictions Discharge Activity: Return to Normal Activity Call your doctor if you observe: - - Intractable abdominal pain. Home Medications: Medications to take at Discharge Oxycodone [Oxyir] 5 mg PO Q6H PRN PRN 3 Days #12 tablet 06/08/20 Prednisone 10 mg PO DAILY #70 tab 06/08/20 Following Prescriptions Were Given to Patient: Oxycodone [Oxyir] 5 mg PO Q6H PRN PRN 3 Days #12 tablet PRN Reason: Pain Score 6-10 Transmission Status: Sent to [facility] Prednisone 10 mg PO DAILY #70 tab Transmission Status: Pending to [facility] Primary Care Physician: Care Physician,No Primary [Primary Care Provider] - Please Follow Up With: Primary care physician When: at earliest convenience Please Follow Up With: Gastrenterology When: [place] [facility]: [phone], [facility] [phone]. Disposition: Home Minutes spent on discharge:: 32 Patient Condition:: Good Medical Necessity - Tobacco Use Tobacco Use: Cigars Meaningful Use Info Meaningful Use Diagnoses (Choose all that apply): None applicable Inpatient E&M: [id number] Disch Hosp
[2020-06-08 09:49] VITALS: BP 113/68; PULSE 71; RESP 16; TEMP 36.6; O2SAT 100
[2020-06-08] MEDS: MethylPREDNISolone 125 MG/2 ML Vial 60 MG IV (09:58)
== END 2020-06-08 12:25 | disposition home or self-care (01) | DRG 387 ==
LOC: ED 05:27 → MS3 10:08
PROVIDERS: Admitting Provider Internal Medicine; Emergency Provider Emergency Medicine
DX: K50.912 Crohn's disease, unspecified, with intestinal obstruction (principal); F17.290 Nicotine dependence, other tobacco product, uncomplicated; Z90.49 Acquired absence of other specified parts of digestive tract
CPT/HCPCS: 74177; 80053; 83605; 83690; 85025; 97802; 97803; 99284; 99406; J7030; J7120; Q9967; A4216; J2405

== ENCOUNTER 2020-12-28 03:58 | Inpatient (IN) | payer OTHER, SELFPAY ==
[2020-06-06 09:22] VITALS: BMI 28.1
[2020-12-28 03:59] VITALS: BP 121/88; PULSE 103; RESP 25; TEMP 35.6; O2SAT 98; BMI 26.8
--- NOTE | 2020-12-28 04:06 | CT_ITS ---
We are attempting to reach an attending provider to discuss findings. An addendum with communication details will be sent when the communication is complete. STUDY: CT ABDOMEN AND PELVIS WITH CONTRAST REASON FOR EXAM: Male, 35 years old. Abd pain RADIATION DOSAGE (If Supplied By Facility): CTDIvol = ( 12.33 ) mGy, DLP = ( 784.36 ) mGycm TECHNIQUE: Transaxial images were obtained from the dome of the diaphragm to the symphysis pubis without oral contrast. IV 100mL Isovue-370 was administered. Sagittal and coronal images were reconstructed. Individualized dose optimization techniques were used for this CT. COMPARISON: June 06, 2020 CT abdomen and pelvis FINDINGS: The visualized lung bases are unremarkable. The visualized portions of the heart are within normal limits. Normal liver. Normal gallbladder and extrahepatic biliary system. Normal spleen. Normal pancreas. Normal bilateral adrenal glands. Normal right kidney. Normal left kidney. Normal visualized stomach. There are multiple distended loops of small bowel. There is wall thickening of the distal small bowel in the pelvis midline image #92 axial views which is followed by a distended appearance of the bowel greater than prior study now measuring 5.0 cm proximal to a focal stricture over a segment of 2 cm there is seen on prior study. There is poststenotic distention. There is a mildly thick-walled appearance of the distal small bowel. Within the right lower quadrant there is wall thickening of the small bowel and edema, image #72. This is similar to the prior study. There is a minimal amount of fluid within the cecum. There is moderate stool within the distal colon. The appendix is visualized and appears normal. Normal abdominal aorta. Normal inferior vena cava. There are reactive right lower quadrant mesenteric lymph nodes. Normal urinary bladder. Normal visualized prostate gland. Normal abdominal wall. There are diffuse degenerative changes of the visualized lumbar spine. CT/Abdomen/Pelvis W IV Cont ONLY IMPRESSION: Findings are concerning for high-grade partial small bowel obstruction with the zone of transition in the right lower quadrant over a stricture that is likely worsening since prior study. There is proximal distention of the proximal focal bowel segment measuring 5.0 cm. In addition there is persistent and/or recurrent enteritis in the right lower quadrant image #75. Consider active Crohn''s disease and Sequelae prior Crohn''s disease. Electronically Signed: Rasheeda Beltrán MD at 5:58 EDT Tel , Service support ,
--- NOTE | 2020-12-28 04:08 | EDS_ITS ---
HPI HPI - GI History of Present Illness Chief Complaint: Abd Pain Informant: patient Abdominal Pain/Flank Pain Onset: Days Context: Gradual Onset Timing: Continuous Quality: Aching and Cramping Current Severity: Mild Maximum Severity: Moderate Nausea/Vomiting/Emesis GI Symptom: Positive for Nausea and Vomiting Onset: Days Quality: Positive for Hematemesis Severity: Mild Diarrhea/Melena/Hematochezia GI Symptom: Negative for Diarrhea, Melena and Hematochezia Associated Symptoms Associated Symptoms: Negative for Dysuria, Frequency and Hematuria Narrative Narrative: 35-year-old male history of Crohn's disease. Prior surgery about 7 years ago at the [facility] in [place]. Patient states the last 2 days he has had nausea vomiting. Diffuse abdominal cramping. He has had bowel obstructions before. He is also had GI bleeds before. States he has been throwing up blood the last several days. No bowel movement for last 2 days. No dysuria. No fe rufino. Prior similar symptoms: Yes Recent Illness/Hospitalization: No PFSH PFSH Medical History Crohn's disease Allergy/AdvReac Type Severity Reaction Status Date / Time morphine AdvReac Itching Verified 12/28/20 04:06 Social History Smoking Status: Never smoker ROS ROS ED ROS Narrative Nausea and vomiting and abdominal pain. Review of Systems ROS Unobtainable: Denies due to encephalopathy Constitutional Constitutional ED: Denies chills or fever(s) ENT ENT ED: Denies ear pain or sore throat Cardiovascular Cardiovascular: Denies chest pain Respiratory/Chest Respiratory/Chest: Denies cough or dyspnea Gastrointestinal Gastrointestinal: Reports abdominal pain, nausea and vomiting; Denies constipation, diarrhea or melena Genitourinary Genitourinary ED: Denies dysuria or hematuria Musculoskeletal Musculoskeletal: Denies myalgias Integumentary Denies rash Neurologic Neurologic: Denies headache(s) Psychiatric Psychiatric: Denies depression Endocrine Endocrinology: Denies polyuria Hematologic/Lymphatic Hematologic/Lymphatic: Denies easy bruising Allergic/Immunologic Allergic/Immunologic ED: Denies urticaria EXAM Physical Exam Narrative Exam Narrative: Young male vital signs stable afebrile. Initial blood pressure 121/88. HEENT exam unremarkable. Moist with memories. Neck nontender. Lungs clear to auscultation bilaterally. Heart regular rhythm rate about 100 no murmur. Abdomen soft. Mildly distended. Diffusely tender. Decreased bowel sounds. Well-healed prior exploratory laparotomy incision in the midline. No hernia or mass. Moving all 4 extremities. No edema. Multiple tattoos. Back nontender. Neurologically is awake and alert. No focal motor deficits. Const Vital Signs: 12/28/20 03:59 12/28/20 05:05 Temperature 96.1 F L 97 F L Temperature Source Temporal Temporal Pulse Rate 103 H 89 Respiratory Rate 25 H 17 Blood Pressure 121/88 H 110/76 Blood Pressure Mean 99 87 Pulse Ox 98 99 Oxygen Delivery Method Room Air Nasal Cannula Oxygen Flow Rate (L/min) 2 Positive well nourished and well developed; Negative for obese, cachectic, contractures or unkempt General Appearance ED: well developed; Negative for unkempt, cachectic or contractures Nutritional Appearance: Negative for cachectic or obese HEENT Reports moist mucous membranes normocephalic and atraumatic Eyes PERRL and EOMs intact bilaterally Neck no lymphadenopathy, supple and no JVD General: Negative for tenderness Resp normal respiratory effort and clear to auscultation bilaterally Auscultation: Negative for rales, rhonchi or wheezes Cardio regular rhythm and no murmurs Rate: tachycardic GI no masses; Negative for non-tender or non-distended Inspection: abdominal distention Auscultation: hypoactive bowel sounds; Negative for normoactive bowel sounds Palpation: soft and tender Back/Spine no CVA tenderness Extremity full ROM General Extremety ED: Negative for edema or tenderness General Extremity: Negative for edema Neuro Sensorium / Orientation: alert, oriented to person, oriented to place, oriented to time and orientation impaired Motor Exam: strength 5/5 throughout Psych mental status grossly normal Appearance: Negative for unkempt Skin Lesions: no lesions Rashes: no rashes MDM MDM MDM Narrative Medical decision making narrative: 35-year-old male with known Crohn's disease. With abdominal pain with nausea vomiting. He has been throwing up blood. He will be treated with IV fluids, Dilaudid and Zofran. Type and screen and labs being obtained. Along with a CAT scan. He will also be given IV Protonix. Repeat exam at 4:40 AM patient stable. Is still having significant abdominal pain she will be given a second dose of IV Dilaudid. I reviewed all his labs. Awaiting on his abdominal CAT scan results. Plan on admitting the patient and will speak to the hospitalist once the CAT scan returns and general surgery.. Lab Data Attestation: I reviewed the patient's lab results. Lab results narrative: CBC unremarkable white count 11.5. Hemoglobin 13. Chemistries normal gap at 10 creatinine of 1 glucose 147. Liver enzymes unremarkable. Lipase 69. Labs: Laboratory Results - last 24 hr 12/28/20 12/28/20 12/28/20 04:05 04:05 04:05 WBC 11.5 H RBC 4.91 Hgb 13.1 Hct 39.7 L MCV 80.9 MCH 26.7 L MCHC 33.0 RDW Std Deviation 41.1 RDW Coeff of Latricia 14.0 Plt Count 424 MPV 9.9 Immature Gran % (Auto) 0.400 Neut % (Auto) 81.9 H Lymph % (Auto) 7.9 L [place] % (Auto) 9.3 Eos % (Auto) 0.2 Baso % (Auto) 0.3 Absolute Neuts (auto) 9.4 H Absolute Lymphs (auto) 0.91 Nucleated RBC % 0 Sodium 136 Potassium 3.8 Chloride 100 Carbon Dioxide 26.0 Anion Gap 10 BUN 23 H Creatinine 1.03 Estim Creat Clear Calc 87.90 Est GFR (MDRD) Af Amer 106 Est GFR (MDRD) Non-Af 88 BUN/Creatinine Ratio 22.3 H Glucose 147 H Calcium 9.4 Total Bilirubin 0.60 AST 14 L ALT 20 Alkaline Phosphatase 84 Total Protein 7.4 Albumin 3.7 Globulin 3.7 Albumin/Globulin Ratio 1.0 Lipase 69 L Blood Type A POSITIVE Antibody Screen NEGATIVE Radiography Diagnostic Testing: Radiology Impression Abdomen/Pelvis CT 12/28/20 04:06 IMPRESSION: Findings are concerning for high-grade partial small bowel obstruction with the zone of transition in the right lower quadrant over a stricture that is likely worsening since prior study. There is proximal distention of the proximal focal bowel segment measuring 5.0 cm. In addition there is persistent and/or recurrent enteritis in the right lower quadrant image #75. Consider active Crohn''s disease and Sequelae prior Crohn''s disease. Electronically Signed: Rasheeda Beltrán MD at 5:58 EDT Tel , Service support , I reviewed the CAT scan myself and the read by the radiologist. The radiologist also called me with the results. Discharge Plan Dx/Rx/DC Orders Clinical Impression: Crohn's disease, SBO (small bowel obstruction), Acute abdominal pain, Acute upper gastrointestinal bleeding Disposition Disposition: Acute Care Hospital [facility]
[2020-12-28] MEDS: Ondansetron 4 MG/2 ML Vial IV ×2 (04:11→13:18)
[2020-12-28] MEDS: 0.9% Normal Saline 1,000 ML 1000 ML IV (04:11)
[2020-12-28] MEDS: HYDROmorphone 1 MG/ML Syringe IV ×5 (04:12→18:48)
[2020-12-28 04:14] LABS: Absolute Lymphocyte Count 0.91 X10^3/uL (0.83-4.51); Absolute Neutrophil Count 9.4 X10^3/uL (2.0-7.7); Basophil# 0.04 X10^3/uL; Basophil% 0.3 % (0-1); Eosinophil# 0.02 X10^3/uL; Eosinophils% 0.2 % (0-5); Hematocrit 39.7 % (40-54); Hemoglobin 13.1 g/dL (13.0-16.5); Lymphocyte # 0.91 X10^3/ul (0.83-4.51); Lymphocyte % 7.9 % (19-41); Mean Corpuscular Hgb 26.7 pg (27.0-32.0); Mean Corpuscular Volume 80.9 fL (80-94); Mean Platelet Vol. 9.9 fl (6.2-12.0); Monocyte# 1.07 X10^3/uL; Monocyte% 9.3 % (0-10); NRBC Flagged by Analyzer 0 % (0-5); Neutrophil # 9.42 X10^3/uL (2.7-7.7); Neutrophil % 81.9 % (47-70); Platelet Count 424 K/mm3 (150-450); RBC Distribution Width SD 41.1 fl (35.1-43.9); Red Blood Count 4.91 M/mm3 (4.6-6.2); White Blood Count 11.5 K/mm3 (4.4-11.0)
[2020-12-28 04:31] LABS: AST(SGOT) 14 U/L (15-37); Alanine Aminotransfer ALT/SGPT 20 U/L (16-61); Albumin, Serum 3.7 g/dL (3.2-5.0); Alkaline Phosphatase 84 U/L (45-117); Anion Gap 10 (5-15); BUN 23 mg/dL (7-18); BUN/Creat Ratio 22.3 RATIO (10-20); Calcium,Total 9.4 mg/dL (8.5-10.1); Chloride 100 mmol/L (98-107); Creatinine, Serum 1.03 mg/dL (0.70-1.30); EST Glomerular Filtration Rate 88 mL/min (>60); Est Glom Filt Rate - Afr Amer 106 mL/min (>60); Globulin 3.7 g/dL (2.2-4.2); Glucose 147 mg/dL (74-106); Lipase 69 U/L (73-393); Potassium 3.8 mmol/L (3.5-5.1); Protein, Total 7.4 g/dL (6.4-8.2); Sodium Level 136 mmol/L (136-145)
[2020-12-28 05:05] VITALS: BP 110/76; PULSE 89; RESP 17; TEMP 36.1; O2SAT 99
--- NOTE | 2020-12-28 06:11 | HP.PCM.HOS_ITS ---
HPI - General General Date of Admission: 12/28/20 HPI Narrative ARISTIDES GILL, is a 35 M with a significant PMH of Crohn's disease who presents via the ED on 11/25/2020 with a complaint of abdominal pain. Symptoms had been going on for 2 weeks prior to admission, and gradually worsened, with associated nausea and vomiting. He has had 2 bowel obstructions last year due to Crohn's disease and it was managed conservatively. He also had a history of GI bleed and says he has thrown up blood a few times over the past few days. He denied fever, chills, chest pain, palpitations. He hasnt had a bowel movement nor passed gas in 2 days. Review of systems was otherwise negative. He had agosto rgery for his Crohn's disease ~ 7 years ago in [facility] and says it was due to obstruction and he had a portion of his intestines resected. He doesnt follow up with any bone glue maker for his Crohn's disease; he says he was set up with [facility] gastroenterology after his last admission, but the Clinic cancelled his appointment and he was told the next appointment would be 3 months afterwards. He thought this was too far out so he didnt follow up. He used to be on Humira, but stopped taking it due to the numerous adverse side effects. Vitals showed BP of 110/76, MD of 89, RR of 17 and temp of 97F, with oxygen saturation of 99% on room air. Labs showed wbc if 11,5, with Hb of 13.1, platelets of 424, and chemistry was essentially unremarkable. Lipase was 69. CT of the abdomen and pelvis showed a high-grade partial small bowel obstruction with the zone of transition in the right lower quadrant over the stricture that is likely worsening since previous study with proximal distention of the proximal focal bowel segment measuring 5 cm. He has been admitted to be managed for abdominal pain due to small bowel obstruction. [facility] Medical History Anxiety Crohn's disease GI bleed Kidney stones Smoker Allergy/AdvReac Type Severity Reaction Status Date / Time morphine AdvReac Itching Verified 12/28/20 04:06 Social History Smoking Status: Current some day smoker tobacco type: cigars ROS Review of Systems ROS Unobtainable: Denies due to encephalopathy Constitutional Constitutional: Reports malaise and weakness; Denies anorexia, change in weight, chills, fatigue, fever(s) or night sweats Eyes Eyes: Denies double vision ENT HEENT: Denies dysphagia, nasal congestion or nasal discharge Cardiovascular Cardiovascular: Denies chest pain, dyspnea on exertion, orthopnea, palpitations, rapid heart rate or syncope Respiratory/Chest Respiratory/Chest: Denies cough, productive cough, shortness of breath at rest or shortness of breath with exertion Gastrointestinal Gastrointestinal: Reports abdominal pain, nausea and vomiting; Denies diarrhea, loose stools or melena Genitourinary Genitourinary: Denies burning urination, difficulty urinating or urinary frequency Musculoskeletal Musculoskeletal: Denies arthralgias Neurologic Neurologic: Denies confusion, focal weakness or headache(s) Psychiatric Psychiatric: Denies anxiety or depression Hematologic/Lymphatic Hematologic/Lymphatic: Denies anemia Vital Signs Vital Signs Vital Signs: 12/28/20 03:59 12/28/20 05:05 Temperature 96.1 F L 97 F L Temperature Source Temporal Temporal Pulse Rate 103 H 89 Respiratory Rate 25 H 17 Blood Pressure 121/88 H 110/76 Blood Pressure Mean 99 87 Pulse Ox 98 99 Oxygen Delivery Method Room Air Nasal Cannula Oxygen Flow Rate (L/min) 2 Weight Weight: 161 lb 2.526 oz Body Mass Index (BMI) 26.8 Physical Exam Const alert, oriented x3 and no apparent distress General Appearance: cooperative HEENT normocephalic, head/scalp atraumatic and hearing grossly normal bilaterally HEENT Narrative: dry mucosa membranes Eyes PERRL, EOMs intact bilaterally and conjunctivae normal Neck no lymphadenopathy Resp normal respiratory effort, no retractions, no use of accessory muscles and clear to auscultation bilaterally Cardio regular rate, regular rhythm, S1 normal heart sound, S2 normal heart sound and no murmurs GI normal to inspection, nondistended, normoactive bowel sounds, non-tender and non-distended GI Narrative: moderate generalised tenderness, no guarding or rebound tenderness Extremity normal to inspection, full ROM and no clubbing, cyanosis or edema Peripheral Pulses: Yes pulses 2+ throughout Skin no rashes or lesions noted Neuro oriented x3 Sensorium / Orientation: awake and alert Psych affect normal Results Lab / Micro Data Result Diagrams: 12/28/20 04:05 12/28/20 04:05 Labs: Laboratory Results - last 24 hr 12/28/20 04:05: WBC 11.5 H, RBC 4.91, Hgb 13.1, Hct 39.7 L, MCV 80.9, MCH 26.7 L , MCHC 33.0, RDW Std Deviation 41.1, RDW Coeff of Latricia 14.0, Plt Count 424, MPV 9.9, Immature Gran % (Auto) 0.400, Neut % (Auto) 81.9 H, Lymph % (Auto) 7.9 L, [place] % (Auto) 9.3, Eos % (Auto) 0.2, Baso % (Auto) 0.3, Absolute Neuts (auto) 9.4 H, Absolute Lymphs (auto) 0.91, Nucleated RBC % 0 12/28/20 04:05: Sodium 136, Potassium 3.8, Chloride 100, Carbon Dioxide 26.0, Anion Gap 10, BUN 23 H, Creatinine 1.03, Estim Creat Clear Calc 87.90, Est GFR (MDRD) Af Amer 106, Est GFR (MDRD) Non-Af 88, BUN/Creatinine Ratio 22.3 H, Glucose 147 H, Calcium 9.4, Total Bilirubin 0.60, AST 14 L, ALT 20, Alkaline Phosphatase 84, Total Protein 7.4, Albumin 3.7, Globulin 3.7, Albumin/Globulin Ratio 1.0, Lipase 69 L 12/28/20 04:05: Blood Type A POSITIVE, Antibody Screen NEGATIVE Radiology Impression Abdomen/Pelvis CT 12/28/20 04:06 IMPRESSION: Findings are concerning for high-grade partial small bowel obstruction with the zone of transition in the right lower quadrant over a stricture that is likely worsening since prior study. There is proximal distention of the proximal focal bowel segment measuring 5.0 cm. In addition there is persistent and/or recurrent enteritis in the right lower quadrant image #75. Consider active Crohn''s disease and Sequelae prior Crohn''s disease. Electronically Signed: Rasheeda Beltrán MD at 5:58 EDT Tel , Service support , ADDENDUM: 12/28/20 0609 IMPRESSION: Findings are concerning for high-grade partial small bowel obstruction with the zone of transition in the right lower quadrant over a stricture that is likely worsening since prior study. There is proximal distention of the proximal focal bowel segment measuring 5.0 cm. In addition there is persistent and/or recurrent enteritis in the right lower quadrant image #75. Consider active Crohn''s disease and Sequelae prior Crohn''s disease. N.B. : The above Results were Read Back by Rasheeda Beltrán MD to Dr. Bahman Pinto MD, and understanding confirmed on 12/28/2020 06:02:33 (ET). Electronically Signed: Rasheeda Beltrán MD at 5:58 EDT Tel , Service support , Assessment & Plan Assessment/Plan (1) Acute abdominal pain: (2) SBO (small bowel obstruction): (3) Acute upper gastrointestinal bleeding: PLAN: #Acute small bowel obstruction * likely due to stricture from surgery for Crohn's disease * admit to med surg * CT scan shows high grade partial small bowel obstruction with zone of transition in right lower quadrant over a stricture * keep NPO * hydrate with IVF * IV dilaudid prn * consult general surgery * #Acute upper GI bleed * patient has been throwing up some blood. Says this often happens when he has such abdominal pain * general surgery consulted * type and cross done * start on IV PPI * currently NPO * #History of Crohn's disease * s/p surgery for bowel obstruction ~ 10 years ago * doesnt see any bone glue maker and also doesn't take any chronic meds for it * will need to be set up with a bone glue maker prior to discharge. * started on IV solumedrol for probable Crohn's flareup * DVT prophylaxis: SCDs. No anticoagulation due to UGI bleed. Charges/Coding Visit Charges Inpatient E&M: 76447 Init Hosp L3
[2020-12-28 06:30] VITALS: BP 106/74; PULSE 93; RESP 18; TEMP 36.2; O2SAT 99
[2020-12-28 06:52] VITALS: BMI 26.6
[2020-12-28] MEDS: 0.9% Normal Saline 1,000 ML 150 ML IV ×2 (07:11→15:54)
[2020-12-28 07:12] VITALS: BP 111/68; PULSE 83; RESP 16; TEMP 36.8; O2SAT 100
[2020-12-28] MEDS: MethylPREDNISolone 125 MG/2 ML Vial 60 MG IV (07:16)
[2020-12-28] MEDS: 0.9% Saline Lock 10 ML Syringe IV ×3 (07:17→15:54)
[2020-12-28] MEDS: metroNIDAZOLE 500 MG/100 ML BAG 100 MG IV ×3 (07:42→20:56)
--- NOTE | 2020-12-28 08:04 | CON.PCM.SX_ITS ---
Assessment & Plan Assessment/Plan (1) Crohn's disease: QUALIFIERS: Gastrointestinal tract location: small intestine Digestive disease complication type: without complication Qualified Code(s): K50.00 - Crohn's disease of small intestine without complications (2) SBO (small bowel obstruction): (3) Acute upper gastrointestinal bleeding: PLAN: The patient has several issues at this time. The patient has a Crohn's flare causing a partial small bowel obstruction. The patient also has a possible stricture causing another area of obstruction. There is thickening of the distal small bowel. Patient is also been having bloody vomiting for the last 2 days. The patient should be placed on steroids and possibly Cipro Flagyl for his Crohn's disease flareup. Continue n.p.o. and IV fluids. The steroids may exacerbate the GI bleeding so I would recommend the patient be on a twice a day IV PPI. If the GI bleeding increases the patient may need to stop the steroids. Patient needs to be established with a structures assembler. Farhad Cadena MD Pager: [facility] [address] [place] [address], [address] [place] [address] Office: HPI Consult Data Date of Consult: 12/28/20 HPI Narrative HPI Narrative: ARISTIDES GILL, is a 35 M who presents with abdominal pain and bloody vomiting. The patient has a history of Crohn's disease and has several flareups. The patient says that he has been having a flare for the last 2 weeks. He reports that over the last 2 days he has been having bloody vomiting. He describes epigastric and right lower quadrant abdominal pain. He also says that he had a perirectal abscess which drained recently. He does not currently follow with a structures assembler. He has had surgery in the past and he has had several bowel obstructions in the past. [facility] Medical History Anxiety Crohn's disease GI bleed Kidney stones Smoker Allergy/AdvReac Type Severity Reaction Status Date / Time morphine AdvReac Itching Verified 12/28/20 04:06 Social History Smoking Status: Current some day smoker tobacco type: cigars ROS Constitutional Constitutional: Reports fatigue; Denies anorexia Eyes Eyes: Denies blurry vision ENT HEENT: Denies abnormal hearing Cardiovascular Cardiovascular: Denies chest pain Respiratory/Chest Respiratory/Chest: Denies dyspnea Gastrointestinal Gastrointestinal: Reports abdominal pain, hematemesis, nausea and vomiting Genitourinary Genitourinary: Denies change in urinary stream Musculoskeletal Musculoskeletal: Denies abnormal gait Integumentary Integumentary: Denies jaundice Neurologic Neurologic: Denies dizziness Psychiatric Psychiatric: Denies anxiety Endocrine Endocrinology: Denies flushing Hematologic/Lymphatic Hematologic/Lymphatic: Denies easy bleeding Physical Exam Const alert and oriented x3 HEENT normocephalic Eyes PERRL Neck full ROM Resp normal respiratory effort Cardio Rate: regular rate Rhythm: regular rhythm GI soft to palpation and non-distended Palpation: tender epigastric and RLQ Extremity normal to inspection Neuro CN's II-XII intact bilaterally Psych mental status grossly normal Lab / Micro Data Result Diagrams: 12/28/20 04:05 12/28/20 04:05 Labs: Laboratory Results - last 24 hr 12/28/20 04:05: WBC 11.5 H, RBC 4.91, Hgb 13.1, Hct 39.7 L, MCV 80.9, MCH 26.7 L , MCHC 33.0, RDW Std Deviation 41.1, RDW Coeff of Latricia 14.0, Plt Count 424, MPV 9.9, Immature Gran % (Auto) 0.400, Neut % (Auto) 81.9 H, Lymph % (Auto) 7.9 L, [place] % (Auto) 9.3, Eos % (Auto) 0.2, Baso % (Auto) 0.3, Absolute Neuts (auto) 9.4 H, Absolute Lymphs (auto) 0.91, Nucleated RBC % 0 12/28/20 04:05: Sodium 136, Potassium 3.8, Chloride 100, Carbon Dioxide 26.0, Anion Gap 10, BUN 23 H, Creatinine 1.03, Estim Creat Clear Calc 87.90, Est GFR (MDRD) Af Amer 106, Est GFR (MDRD) Non-Af 88, BUN/Creatinine Ratio 22.3 H, Glucose 147 H, Calcium 9.4, Total Bilirubin 0.60, AST 14 L, ALT 20, Alkaline Phosphatase 84, Total Protein 7.4, Albumin 3.7, Globulin 3.7, Albumin/Globulin Ratio 1.0, Lipase 69 L 12/28/20 04:05: Blood Type A POSITIVE, Antibody Screen NEGATIVE Radiology Impression Abdomen/Pelvis CT 12/28/20 04:06 IMPRESSION: Findings are concerning for high-grade partial small bowel obstruction with the zone of transition in the right lower quadrant over a stricture that is likely worsening since prior study. There is proximal distention of the proximal focal bowel segment measuring 5.0 cm. In addition there is persistent and/or recurrent enteritis in the right lower quadrant image #75. Consider active Crohn''s disease and Sequelae prior Crohn''s disease. Electronically Signed: Rasheeda Beltrán MD at 5:58 EDT Tel , Service support , ADDENDUM: 12/28/20 0609 IMPRESSION: Findings are concerning for high-grade partial small bowel obstruction with the zone of transition in the right lower quadrant over a stricture that is likely worsening since prior study. There is proximal distention of the proximal focal bowel segment measuring 5.0 cm. In addition there is persistent and/or recurrent enteritis in the right lower quadrant image #75. Consider active Crohn''s disease and Sequelae prior Crohn''s disease. N.B. : The above Results were Read Back by Rasheeda Beltrán MD to Dr. Bahman Pinto MD, and understanding confirmed on 12/28/2020 06:02:33 (ET). Electronically Signed: Rasheeda Beltrán MD at 5:58 EDT Tel , Service support ,
[2020-12-28] MEDS: Ciprofloxacin 400 MG/200 ML BAG 200 MG IV ×2 (10:00→22:36)
--- NOTE | 2020-12-28 12:30 | CASEMGMT ---
RN DONNELL Face to Face with patient for initial transition planning/care coordination assessment. RN CM introduced self and role at [facility]. Patient lying in bed, alert and oriented, mother at bedside. Patient willing to participate in assessment and is able to answer all questions appropriately. Care providers, pharmacy, and demographics verified. Patient wishes to discharge home, denies need for home health at this time. Patient states he has no further needs or concerns at this time. CM to follow for discharge planning needs that may arise. PCP: No PCP, list of providers given to patient Specialists: none Preferred Pharmacy: [facility] Insurance: none Prescription Benefit: none Living Will/HPOA: none LNOK: Living Arrangements: Patient lives with in a 2 story home. Patient is independent and able to ambulate stairs Transportation: self, DME/HHC: Patient states he has crutches at home. Denies further DME. Disposition Plan: Patient to discharge home with family support and follow-up plans in place. Sabi MORRIS, RN, CM
[2020-12-28 13:15] VITALS: BP 101/54; PULSE 78; RESP 18; TEMP 36.5; O2SAT 97
--- NOTE | 2020-12-28 13:51 | CASEMGMT ---
Social Work Note Pt is listed as SPERDEP. SW reviewed PFS notes. Pt doesn't have insurance, pt paid ER self-deposit and HCAP applicatoin to be mailed to pt. SW in to speak with pt. 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 Pt states he hasn't looked into privately paying for insurance. Pt denied financial concerns at this time. SW unable to provide pt with [facility] financial resources as pt is not a resident of [facility]. Sabi Singleton USED CAR MAKE READY WORKER, FORENSIC PSYCHIATRIST
--- NOTE | 2020-12-28 13:54 | PCM.HOSP.N ---
Hospitalist Note Patient admitted early this morning with partial small bowel obstruction. History of Crohn's disease. Not currently on any disease modifying medications. Has been on Humira in the past but did not tolerate the side effects although this controlled his disease process well. Is not currently seeing a vp director of creative strategy for management. Has history of bowel resection with repeated partial bowel obstructions that have resolved with conservative management since that point time. Continue n.p.o. status. Continue pain medications as needed. IV fluids for hydration. Patient reports he had a recent perirectal abscess and I discussed the case with general surgery we decided it would be prudent to put him on Cipro and Flagyl at this time and follow him clinically. No current surgical needs. Patient has had some hematemesis related to the nausea and vomiting he is been experiencing with his partial small bowel obstruction. Continue PPI twice daily for now. Diagnoses: Partial small bowel [id number] Hematemesis -Hemoglobin stable Recent perirectal abscess Leukocytosis Mild dehydration Crohn's disease
--- NOTE | 2020-12-28 15:30 | NURSING ---
PT C/O ABD PAIN 8, PRN DILAUDID NOT DUE AGAIN UNTIL 1714 - DR CONTRERAS NOTIFIED & NEW ORDER RECEIVED.
[2020-12-28 20:59] VITALS: BP 105/56; PULSE 76; RESP 16; TEMP 36.4; O2SAT 95
[2020-12-28] MEDS: 0.9% Normal Saline 1,000 ML 100 ML IV (22:35)
[2020-12-29 00:10] VITALS: BP 94/57; PULSE 80; RESP 16; TEMP 36.5; O2SAT 96
[2020-12-29 00:38] VITALS: BP 114/65; PULSE 68; RESP 16; TEMP 36.5; O2SAT 96
[2020-12-29] MEDS: HYDROmorphone 1 MG/ML Syringe IV ×3 (00:40→21:34)
[2020-12-29] MEDS: 0.9% Saline Lock 10 ML Syringe IV ×4 (00:40→21:34)
[2020-12-29 06:17] VITALS: BP 105/56; PULSE 76; RESP 14; TEMP 36.4; O2SAT 96
[2020-12-29] MEDS: metroNIDAZOLE 500 MG/100 ML BAG 100 MG IV ×3 (06:19→21:27)
[2020-12-29 07:14] LABS: Absolute Lymphocyte Count 0.76 X10^3/uL (0.83-4.51); Basophil# 0.02 X10^3/uL; Basophil% 0.5 % (0-1); Eosinophil# 0.04 X10^3/uL; Eosinophils% 0.9 % (0-5); Hematocrit 27.6 % (40-54); Hemoglobin 8.7 g/dL (13.0-16.5); Lymphocyte # 0.76 X10^3/ul (0.83-4.51); Lymphocyte % 17.8 % (19-41); Mean Corp Hgb Conc 31.5 g/dL (32-36); Mean Corpuscular Hgb 26.5 pg (27.0-32.0); Mean Corpuscular Volume 84.1 fL (80-94); Mean Platelet Vol. 10.3 fl (6.2-12.0); Monocyte# 0.44 X10^3/uL; Monocyte% 10.3 % (0-10); NRBC Flagged by Analyzer 0 % (0-5); Neutrophil # 2.98 X10^3/uL (2.7-7.7); Platelet Count 226 K/mm3 (150-450); RBC Distribution Width CV 14.2 % (11.6-14.6); RBC Distribution Width SD 44.1 fl (35.1-43.9); Red Blood Count 3.28 M/mm3 (4.6-6.2); White Blood Count 4.3 K/mm3 (4.4-11.0)
--- NOTE | 2020-12-29 07:50 | PN.SURG_ITS ---
Subjective Subjective The patient reports that he feels things moving along and his pain is improved. He says his abdominal discomfort is at his baseline. He is not passing any flatus just yet. Objective Data Objective Data Vital Signs: Vital Signs Temp Pulse Resp BP Pulse Ox 97.6 F L 76 14 105/56 L 96 12/29/20 06:17 12/29/20 06:17 12/29/20 06:17 12/29/20 06:17 12/29/20 06:17 Oxygen Flow Rate (L/min) 2 Oxygen Delivery Method Room Air Weight: 159 lb 13.362 oz Body Mass Index (BMI) 26.6 Intake & Output: Intake and Output for Last 24 Hours 12/27/20 12/28/20 12/29/20 23:59 23:59 23:59 Intake Total 3768.34 / 3768.34 850.00 / 850.00 Balance 3768.34 / 3768.34 850.00 / 850.00 Lab / Micro Data Result Diagrams: 12/29/20 06:11 12/28/20 04:05 Labs: Laboratory Results - last 24 hr 12/29/20 06:11: WBC 4.3 L, RBC 3.28 L, Hgb 8.7 L, Hct 27.6 L, MCV 84.1, MCH 26.5 L, MCHC 31.5 L, RDW Std Deviation 44.1 H, RDW Coeff of Latricia 14.2, Plt Count 226, MPV 10.3, Immature Gran % (Auto) 0.500, Neut % (Auto) 70.0, Lymph % (Auto) 17.8 L, [place] % (Auto) 10.3 H, Eos % (Auto) 0.9, Baso % (Auto) 0.5, Absolute Neuts (auto) 3.0, Absolute Lymphs (auto) 0.76 L, Nucleated RBC % 0 12/29/20 06:11: Sodium Cancelled, Potassium Cancelled, Chloride Cancelled, Carbon Dioxide Cancelled, Anion Gap Cancelled, BUN Cancelled, Creatinine Cancelled, Estim Creat Clear Calc Cancelled, Est GFR (MDRD) Af Amer Cancelled, Est GFR (MDRD) Non-Af Cancelled, BUN/Creatinine Ratio Cancelled, Glucose Cance lled, Calcium Cancelled Physical Exam Const oriented x3 and no apparent distress Resp normal respiratory effort Cardio regular rate and regular rhythm GI soft to palpation and non-tender Assessment & Plan Assessment/Plan (1) Crohn's disease: QUALIFIERS: Gastrointestinal tract location: small intestine Digestive disease complication type: without complication Qualified Code(s): K50.00 - Crohn's disease of small intestine without complications (2) SBO (small bowel obstruction): PLAN: The patient reports that his abdominal pain is improving and it is at his baseline. The patient does not have any nausea vomiting has not had any bloody vomitus since admission. Patient has not actually passing any flatus yet but he feels like things are moving along. Once he passes flatus he may start on clear liquids and advance as tolerated. Patient needs to be established with a envelope adjuster. I recommend discharge on PPI. Farhad Cadena MD Pager: [facility] [address] [place] [address], [address] [place] [phone] Office:
[2020-12-29 08:27] VITALS: BP 95/46; PULSE 51; RESP 18; TEMP 36.4; O2SAT 98
[2020-12-29 09:07] LABS: Anion Gap 2 (5-15); BUN 13 mg/dL (7-18); BUN/Creat Ratio 17.2 RATIO (10-20); Calcium,Total 7.9 mg/dL (8.5-10.1); Chloride 109 mmol/L (98-107); Creatinine, Serum 0.76 mg/dL (0.70-1.30); EST Glomerular Filtration Rate 125 mL/min (>60); Est Glom Filt Rate - Afr Amer 151 mL/min (>60); Estimated Creatinine Clearance 114.68 ml/min; Glucose 83 mg/dL (74-106); Potassium 3.9 mmol/L (3.5-5.1); Sodium Level 139 mmol/L (136-145)
[2020-12-29] MEDS: Ciprofloxacin 400 MG/200 ML BAG 200 MG IV ×2 (10:33→22:47)
[2020-12-29] MEDS: MethylPREDNISolone 125 MG/2 ML Vial 60 MG IV (10:34)
[2020-12-29] MEDS: 0.9% Normal Saline 1,000 ML 100 ML IV (10:39)
--- NOTE | 2020-12-29 13:29 | NURSING ---
DR CONTRERAS MADE AWARE PT TOLERATING CLEAR LIQUID OK. ORDER TO ADVANCE TO FULL LIQUID.
[2020-12-29 14:30] VITALS: BP 91/54; PULSE 65; RESP 18; TEMP 36.8; O2SAT 96
--- NOTE | 2020-12-29 15:57 | PN.HOSP_ITS ---
Subjective Subjective Patient states he is feeling much better this morning. Passing flatus. Clear liquid diet initiated by general surgery this morning. Patient has not trialed this yet but plans to soon. Objective Data Objective Data Vital Signs: Vital Signs Temp Pulse Resp BP Pulse Ox 97.6 F L 51 L 18 95/46 L 98 12/29/20 08:27 12/29/20 08:27 12/29/20 08:27 12/29/20 08:27 12/29/20 08:27 Oxygen Flow Rate (L/min) 2 Oxygen Delivery Method Room Air Weight: 72.5 kg Body Mass Index (BMI) 26.6 Intake & Output: Intake and Output for Last 24 Hours 12/27/20 12/28/20 12/29/20 23:59 23:59 23:59 Intake Total 3768.34 / 3768.34 1660.00 / 1660.00 Balance 3768.34 / 3768.34 1660.00 / 1660.00 Lab / Micro Data Result Diagrams: 12/29/20 06:11 12/29/20 08:20 Labs: Laboratory Results - last 24 hr 12/29/20 06:11: WBC 4.3 L, RBC 3.28 L, Hgb 8.7 L, Hct 27.6 L, MCV 84.1, MCH 26.5 L, MCHC 31.5 L, RDW Std Deviation 44.1 H, RDW Coeff of Latricia 14.2, Plt Count 226, MPV 10.3, Immature Gran % (Auto) 0.500, Neut % (Auto) 70.0, Lymph % (Auto) 17.8 L, [place] % (Auto) 10.3 H, Eos % (Auto) 0.9, Baso % (Auto) 0.5, Absolute Neuts (auto) 3.0, Absolute Lymphs (auto) 0.76 L, Nucleated RBC % 0 12/29/20 06:11: Sodium Cancelled, Potassium Cancelled, Chloride Cancelled, Carbon Dioxide Cancelled, Anion Gap Cancelled, BUN Cancelled, Creatinine Cancelled, Estim Creat Clear Calc Cancelled, Est GFR (MDRD) Af Amer Cancelled, Est GFR (MDRD) Non-Af Cancelled, BUN/Creatinine Ratio Cancelled, Glucose Cancelled, Calcium Cancelled 12/29/20 08:20: Sodium 139, Potassium 3.9, Chloride 109 H, Carbon Dioxide 28.0, Anion Gap 2 L, BUN 13, Creatinine 0.76, Estim Creat Clear Calc 114.68, Est GFR (MDRD) Af Amer 151, Est GFR (MDRD) Non-Af 125, BUN/Creatinine Ratio 17.2, Glucose 83, Calcium 7.9 L Physical Exam Const alert, oriented x3 and no apparent distress Constitutional Narrative: Middle-aged white male lying in bed, appears comfortable, nontoxic Exam Limitations: no limitations HEENT head/scalp atraumatic and moist oral mucous membranes Head and Scalp: normocephalic Resp normal respiratory effort, no retractions, no use of accessory muscles and clear to auscultation bilaterally Cardio regular rate, regular rhythm, S1 normal heart sound, S2 normal heart sound, no murmurs, no rub, no gallops, no clicks and no JVD GI normal to inspection, nondistended, normoactive bowel sounds, soft to palpation and non-distended GI Narrative: Mild diffuse tenderness but otherwise benign exam Palpation: tender Extremity normal to inspection and no clubbing, cyanosis or edema Peripheral Pulses: Yes pulses 2+ throughout Neuro oriented x3 Sensorium / Orientation: awake and alert Assessment & Plan Assessment/Plan (1) Crohn's disease: QUALIFIERS: Gastrointestinal tract location: small intestine Digestive disease complication type: without complication Qualified Code(s): K50.00 - Crohn's disease of small intestine without complications (2) SBO (small bowel obstruction): (3) Acute upper gastrointestinal bleeding: PLAN: Assessment: Partial small bowel [id number] Hematemesis -Hemoglobin stable Recent perirectal abscess Leukocytosis Mild dehydration Crohn's disease Plan: -Start clear liquid diet and will advance to full liquids this evening if patient is tolerating -Regular diet for breakfast and if tolerates well may be able to be discharged tomorrow -Hemoglobin has dropped but patient was receiving significant amounts of IV fluids -IV fluids discontinued and will repeat hemoglobin in a.m. for stability -Continue PPI now and at discharge -Leukocytosis has resolved -We will discharge home on short course of antibiotics for perirectal abscess if treatment had not yet been completed -Patient will need follow-up with audit clerks supervisor for more definitive treatment related to his Crohn's disease -Probable discharge tomorrow Charges/Coding Visit Charges Inpatient E&M: 09710 Subs Hosp L2
[2020-12-29] MEDS: Ondansetron 4 MG/2 ML Vial IV (17:11)
[2020-12-29 21:12] VITALS: BP 108/54; PULSE 68; RESP 15; TEMP 36.9; O2SAT 99
[2020-12-30 02:30] VITALS: BP 102/52; PULSE 60; RESP 15; TEMP 36.8; O2SAT 97
[2020-12-30] MEDS: metroNIDAZOLE 500 MG/100 ML BAG 100 MG IV (06:30)
[2020-12-30 08:20] VITALS: BP 102/59; PULSE 88; RESP 16; TEMP 36.8; O2SAT 96
[2020-12-30] MEDS: MethylPREDNISolone 125 MG/2 ML Vial 60 MG IV (09:50)
--- NOTE | 2020-12-30 10:27 | PCM.DC.SUM ---
Providers Date of Admission: 12/28/20 Primary Care Physician: Mari Primary Care Phys Consultations 12/28/20 06:51 Consult: General Surgery Routine Consulting Provider: Farhad Cadena Reason for Consult: small bowel obstruction EMERGENT Consult: No MD Notified: Yes Date Notified: 12/28/20 Time Notified: 06:51 Method of Notification: Text Reason For Visit: SMALL BOWEL OBSTRUCTION Diagnosis Discharge Diagnosis (1) Crohn's disease: Status: Acute Code(s): K50.90 - Crohn's disease, unspecified, without complications Qualifiers: Gastrointestinal tract location: small intestine Digestive disease complication type: without complication Qualified Code(s): K50.00 - Crohn's disease of small intestine without complications (2) SBO (small bowel obstruction): Status: Acute Code(s): K56.609 - Unspecified intestinal obstruction, unspecified as to partial versus complete obstruction (3) Acute upper gastrointestinal bleeding: Status: Acute Code(s): K92.2 - Gastrointestinal hemorrhage, unspecified Medications at Discharge Home Medications amoxicillin-pot clavulanate [Augmentin] 1 tab PO BID #6 tab 12/30/20 pantoprazole [Protonix] 40 mg PO DAILY #30 tab 12/30/20 Hospital Course Operations None Procedures None Summary of Care Provided Minutes Spent on Discharge: 38 Hospital Course: Mr. Henning is a 35-year-old white male who presented to the emergency department at [facility] on 12/28/2020 complaining of abdominal pain. His symptoms had been going on and off for 2 weeks prior to admission but have gradually gotten worse and have been associated with nausea and vomiting. He has a history of bowel obstructions related to Crohn's disease and adhesions from previous abdominal surgeries related to his Crohn's disease. He had two bowel obstructions last year both which of were able to be treated conservatively. He reported that he had not had a bowel movement or passed gas in nearly 2 days. He also complained of some hematemesis with his vomiting. He denied fever, chills, chest pain, or palpitations on admission. He had abdominal surgery approximately 7 years prior at the [facility] in [place] due to obstruction and noted he had a good portion of his intestines resected. He has not been following up with GI for his Crohn's. He had an appointment at [facility] but it was canceled and never rescheduled. He was hemodynamically stable on admission. He had a mild leukocytosis on admission. His hemoglobin was 13.1. His CBC showed mild dehydration with a mildly elevated BUN and creatinine compared to his baseline but no significant acute kidney injury. A CT of his abdomen pelvis showed findings that were concerning with a high-grade partial small bowel obstruction with a transition zone in the right lower quadrant over a stricture that is likely worsening since previous study. There was proximal distention at the proximal focal bowel segment measuring 5 cm. There is also persistent and/or recurrent enteritis in the right lower quadrant concerning for sequelae of Crohn's disease. Given these findings he was admitted to medical surgical floor and treated with aggressive hydration, proton pump inhibitor twice daily, n.p.o. status, pain medication, and Cipro and Flagyl via IV for concern of abscess with abnormal findings on CT. After approximately 24 hours he passed flatus and was started on a clear liquid diet. This diet was able to be advanced on the evening of 716 to full liquids all of which she tolerated well. He had continued flatus on 12/30/2020 and diet was advanced to regular which she tolerated well. He was discharged to complete antibiotics for possible perirectal abscess with Augmentin for three more days and a proton pump inhibitor 40 mg daily. We encouraged him strongly to follow-up with merchandise marker. The patient states he had been on Humira in the past and it did help his symptoms related to his Crohn but the side effects of taking the Humira were far worse than the benefit he was getting from the medication. I have given him a referral to Dr. Levin and recommend he follow-up within the month. Discharge diagnoses: Partial small bowel obstruction-resolved Hematemesis-Resolved Anemia Perirectal abscess Dehydration Crohn's disease Physical Exam Const alert, oriented x3 and no apparent distress Constitutional Narrative: Middle-aged white male lying in bed, appears comfortable, nontoxic General Appearance: cooperative, comfortable, well kempt and well developed Exam Limitations: no limitations HEENT normocephalic, head/scalp atraumatic, hearing grossly normal bilaterally, moist oral mucous membranes and dentition normal Eyes PERRL, EOMs intact bilaterally and conjunctivae normal Neck supple Neck Narrative: Trachea midline Resp normal respiratory effort, no retractions, no use of accessory muscles and clear to auscultation bilaterally Cardio regular rate, regular rhythm, S1 normal heart sound, S2 normal heart sound, no murmurs, no rub, no gallops, no clicks and no JVD GI normal to inspection, nondistended, normoactive bowel sounds, soft to palpation, non-tender and non-distended GI Narrative: Tenderness has resolved Palpation: tender Extremity normal to inspection, full ROM and no clubbing, cyanosis or edema Skin no rashes or lesions noted, no wounds, skin turgor normal and no jaundice Skin Narrative: Multiple tattoos Neuro oriented x3 Sensorium / Orientation: awake and alert Psych affect normal Weight / BMI Weight Weight: 72.5 kg Body Mass Index (BMI) 26.6 ABG / Lab / Microbiology Data Result Diagrams: 12/29/20 06:11 12/29/20 08:20 D/C Instructions Discharge Diet: No restrictions Discharge Activity: Return to Normal Activity Meaningful Use Info Meaningful Use Diagnoses (Choose all that apply): None applicable Discharge Plan Admission Admit Date/Time: 12/28/20 06:28 Primary Reason for Your Visit: Partial small bowel obstruction Attending Provider: Yulisa Dye Primary Care Provider: Care Physician,No Primary Consulting Providers: Farhad Cadena Discharge Orders/Prescriptions Prescriptions: New amoxicillin-pot clavulanate [Augmentin] 875-125 mg tablet 1 tab PO BID Qty: 6 RF: 0 pantoprazole [Protonix] 40 mg tablet,delayed release (DR/EC) 40 mg PO DAILY Qty: 30 RF: 1 Referrals / Follow Up: Frank Levin MD [NON-STAFF] - Within 1 Month Care Physician,No Primary [Primary Care Provider] - Disposition Disposition (needs filled in before D/C Order can be placed): Home, Self Care Charges/Coding Visit Charges Inpatient E&M: 23090 Disch Hosp
--- NOTE | 2020-12-30 10:42 | PCM.DC ---
Discharge Instructions Diet Discharge Diet: No restrictions Follow Up Care Test Results: Test results from this visit will be discussed in further detail at your follow-up appointment, if applicable. Discharge Plan Admission Admit Date/Time: 12/28/20 06:28 Primary Reason for Your Visit: Partial small bowel obstruction Attending Provider: Yulisa Dye Primary Care Provider: Care Physician,No Primary Consulting Providers: Farhad Cadena Discharge Orders/Prescriptions Prescriptions: New amoxicillin-pot clavulanate [Augmentin] 875-125 mg tablet 1 tab PO BID Qty: 6 RF: 0 pantoprazole [Protonix] 40 mg tablet,delayed release (DR/EC) 40 mg PO DAILY Qty: 30 RF: 1 Referrals / Follow Up: Frank Levin MD [NON-STAFF] - Within 1 Month Care Physician,No Primary [Primary Care Provider] - Disposition Disposition (needs filled in before D/C Order can be placed): Home, Self Care
[2020-12-30 11:09] VITALS: BP 102/58; PULSE 73; RESP 18; TEMP 37; O2SAT 95
--- NOTE | 2020-12-30 11:19 | PCM.PN.SRG ---
Subjective Subjective patient has much decreased pain and passing flatus Objective Data Objective Data Vital Signs: Vital Signs Temp Pulse Resp BP Pulse Ox 98.6 F 73 18 102/58 L 95 12/30/20 11:09 12/30/20 11:09 12/30/20 11:09 12/30/20 11:09 12/30/20 11:09 Oxygen Flow Rate (L/min) 2 Oxygen Delivery Method Room Air Weight: 72.5 kg Body Mass Index (BMI) 26.6 Intake & Output: Intake and Output for Last 24 Hours 12/28/20 12/29/20 12/30/20 23:59 23:59 23:59 Intake Total 3768.34 / 3768.34 2486.67 / 2486.67 930 / 930 Balance 3768.34 / 3768.34 2486.67 / 2486.67 930 / 930 Lab / Micro Data Result Diagrams: 12/29/20 06:11 12/29/20 08:20
== END 2020-12-30 11:18 | disposition home or self-care (01) | DRG 386 ==
LOC: ED 04:43 → MS3 06:41
PROVIDERS: Admitting Provider Student in an Organized Health Care Education/Training Program; Emergency Provider Emergency Medicine; Visit Provider Internal Medicine
DX: K50.012 Crohn's disease of small intestine with intestinal obstruction (principal); K61.1 Rectal abscess; K92.0 Hematemesis; K52.9 Noninfective gastroenteritis and colitis, unspecified; F17.200 Nicotine dependence, unspecified, uncomplicated; E86.0 Dehydration; D64.9 Anemia, unspecified; Z87.442 Personal history of urinary calculi
CPT/HCPCS: 36415; 74177; 80048; 80053; 83690; 85025; 86850; 86900; 86901; 97802; 99284; 99406; J7030; Q9967; A4216; J0744; J2405

== ENCOUNTER 2021-12-20 11:25 | Emergency (ER) | payer SELFPAY ==
[2021-12-20 11:26] VITALS: BP 115/77; PULSE 117; RESP 24; TEMP 36.7; O2SAT 96; BMI 27.4
--- NOTE | 2021-12-20 11:52 | ED.VIS.BACK ---
HPI History of Present Illness Chief Complaint: Numb/Ting Informant: patient Onset/Context/Timing Onset: Weeks (1) Context: Gradual Onset Timing: Continuous Quality: Sharp Location: Lumbar Worsened by: improves with Movement Relieved by: Nothing Associated Symptoms Associated Symptoms: Numbness, Tingling, Radiation to Right Leg, Radiation to Left Leg and Urinary Retention; Negative for Fever, Abdominal Pain, Dysuria, Urinary Incontinence, Constipation or Fecal Incontinence Narrative Narrative: Patient presents with numbness and tingling in his legs and pain in his back that has been getting worse over the last week. Patient states his pain is sharp in his low back and then radiates down his lower extremities. Patient states pain also radiates up his back. Patient states pain is worse with movement. Patient states nothing seems to help with the pain. Patient states that he is having numbness and tingling in his lower extremities. Patient states he is also having some weakness in his lower extremities. Patient is having difficulty ambulating. Patient admits to some feelings of urinary urgency but denies any loss of control of his bladder. Patient denies any loss of control of his stools. PFSH PFSH Medical History Anxiety Crohn's disease GI bleed Kidney stones Smoker Home Medications gabapentin 300 mg capsule 300 mg PO TID #30 caps 12/20/21 [Rx Last Taken Unknown] oxycodone-acetaminophen 5 mg-325 mg tablet 1 tab PO Q6H PRN PRN Pain 3 days #12 TABLETS 12/20/21 [Rx Last Taken Unknown] prednisone 20 mg tablet 60 mg PO DAILY #15 TABLETS 12/20/21 [Rx Last Taken Unknown] [id number]-capryl 12/20/21 [History Last Taken Unknown] Allergy/AdvReac Type Severity Reaction Status Date / Time morphine AdvReac Itching Verified 12/28/20 04:06 Surgical History (Updated 12/20/21 @ 11:[address] Jacoby Layne DO) Hx of resection of small bowel S/P ORIF (open reduction internal fixation) fracture Social History Smoking Status: Current some day smoker tobacco type: cigars ROS ROS ED Constitutional Constitutional ED: Denies chills or fever(s) Eyes Eyes: Denies blurry vision or change in vision ENT ENT ED: Denies rhinorrhea or sore throat Cardiovascular Cardiovascular: Denies chest pain or palpitations Respiratory/Chest Respiratory/Chest: Denies cough or dyspnea Gastrointestinal Gastrointestinal: Denies nausea or vomiting Genitourinary Genitourinary ED: Denies dysuria or hematuria Musculoskeletal Musculoskeletal: Reports back pain; Denies neck pain Integumentary Denies abscess or rash Neurologic Neurologic: Reports paresthesias RLE and LLE and weakness; Denies headache(s) Allergic/Immunologic Allergic/Immunologic ED: Denies mouth swelling or urticaria EXAM Physical Exam Const Vital Signs: 12/20/21 11:26 12/20/21 14:11 12/20/21 15:00 Temperature 98.1 F Temperature Source Temporal Pulse Rate 117 H 96 74 Respiratory Rate 24 H 18 16 Blood Pressure 115/77 126/75 H 127/72 H Blood Pressure Mean 89 92 90 Pulse Ox 96 96 99 Oxygen Delivery Method Room Air Room Air Room Air Positive well nourished and well developed General Appearance ED: well developed and NAD HEENT Reports moist mucous membranes Back/Spine Back/Spine Narrative: There is tenderness over the lower lumbar spine and paraspinal muscles. There is no bony crepitance or step-off. Range of motion was limited in all motions of the lumbar spine secondary to pain. Extremity normal to inspection General Extremety ED: Negative for edema or tenderness General Extremity: Negative for edema Neuro oriented x3 Sensorium / Orientation: alert Motor Exam: strength abnormal flexion (Strength is 4/5 bilaterally in the hip flexors.) and other (Strength is 4/5 bilaterally in the extensor hallux longus and plantar flexion of the ankles.) Deep Tendon Reflexes: Rt Patellar (L4): 2+, Lt Patellar (L4): 2+, Rt Ankle (S1): 1+ and Lt Ankle (S1): 1+ Deep Tendon Reflexes Back: Rt Patellar (L4): 2+, Lt Patellar (L4): 2+, Rt Ankle (S1): 1+ and Lt Ankle (S1): 1+ Psych mental status grossly normal MDM MDM MDM Narrative Medical decision making narrative: Patient was given a dose of Toradol here. Patient had minimal relief with this. Patient was given a dose of Dilaudid. Patient states this did help with his pain. CBC was within normal limits. Basic metabolic profile was normal. MRI of the lumbar spine was obtained. There is a large disc extrusion at L4-L5 causing mild central canal stenosis and left lateral recess stenosis with compression of descending nerve root. This was interpreted by the radiologist and reviewed by myself. Case was discussed with Dr. Powers from orthopedics. He recommended giving the patient a course of oral steroids and starting him on gabapentin. He will follow-up with him in the office next week. Patient was advised of signs and symptoms which should prompt return to the emergency department. Patient understood and was agreeable with the plan. All questions were answered. Lab Data Attestation: I reviewed the patient's lab results. Labs: Laboratory Results - last 24 hr 12/20/21 12/20/21 12:30 12:30 WBC 8.5 RBC 5.37 Hgb 12.3 L Hct 41.0 MCV 76.4 L MCH 22.9 L MCHC 30.0 L RDW Std Deviation 41.1 RDW Coeff of Latricia 15.1 H Plt Count 291 MPV 10.3 Immature Gran % (Auto) 0.200 Neut % (Auto) 82.3 H Lymph % (Auto) 8.8 L [place] % (Auto) 8.7 Eos % (Auto) 0.0 Baso % (Auto) 0.0 Absolute Neuts (auto) 7.0 Absolute Lymphs (auto) 0.75 L Nucleated RBC % 0 Sodium 138 Potassium 3.5 Chloride 105 Carbon Dioxide 28.0 Anion Gap 5 BUN 11 Creatinine 0.97 Estim Creat Clear Calc 92.46 Est GFR (MDRD) Af Amer 114 Est GFR (MDRD) Non-Af 94 BUN/Creatinine Ratio 11.4 Glucose 133 H Calcium 9.2 Radiography Diagnostic Testing: Clinical Impression(s) from Imaging Studies Lumbar Spine MRI 12/20/21 12:10 IMPRESSION: 1. Large disc extrusion at L4-L5 causing mild central canal stenosis and left lateral recess stenosis with compression of descending nerve root Electronically Signed: Elver John MD at 15:40 EDT , Discharge Plan Triage Chief Complaint: Numb/Ting ED Provider: Jacoby Layne Dx/Rx/DC Orders Clinical Impression: Lumbar disc herniation with radiculopathy, Crohn's disease Instructions: ED Herniated Intervertebral Disk Prescriptions: New prednisone 20 mg tablet 60 mg PO DAILY Qty: 15 0RF gabapentin 300 mg capsule 300 mg PO TID Qty: 30 0RF Rx Instructions: Take 300 mg today. Take 300 mg twice daily tomorrow. Then take 300 mg 3 times daily oxycodone-acetaminophen [oxycodone-acetaminophen] 5-325 mg tablet 1 tab PO Q6H PRN PRN (Reason: Pain) 3 Days Qty: 12 0RF No Action [id number]-capryl Primary Care Provider: Care Physician,No Primary Referrals: Bahman Powers DO [STAFF PHYSICIAN] - 3-5 Days Care Physician,No Primary [Primary Care Provider] - Disposition Disposition: Home, Self Care
--- NOTE | 2021-12-20 12:10 | MRI_ITS ---
STUDY: MRI LUMBAR SPINE WITHOUT CONTRAST REASON FOR EXAM: Male, 36 years old. Back pain, radiculopathy, numbness/weakness in legs TECHNIQUE: Standardized fat and water weighted pulse sequences were obtained in the sagittal and axial planes. COMPARISON: CT of abdomen and pelvis dated December 28, 2020 FINDINGS: T12-L1: Normal endplates. Normal disc height, hydration and morphology. Normal bilateral facet joints. Normal central canal and bilateral lateral recesses. Normal bilateral intervertebral neural foramina. Normal lumbar lordosis. There is a levoscoliosis of the lumbar spine. Normal conus medullaris that terminates at the T12-L1 level. No marrow edema or fracture or compression deformity is present. L1-2: Normal endplates. Normal disc height, hydration and morphology. Normal bilateral facet joints. Normal central canal and bilateral lateral recesses. Normal bilateral intervertebral neural foramina. L2-3: Normal endplates. Normal disc height, hydration and morphology. Normal bilateral facet joints. Normal central canal and bilateral lateral recesses. Normal bilateral intervertebral neural foramina. L3-4: Normal endplates. Normal disc height, hydration and morphology. Normal bilateral facet joints. Normal central canal and bilateral lateral recesses. Normal bilateral intervertebral neural foramina. L4-5: Diffuse disc desiccation with mild to moderate disc space narrowing and mild endplate degenerative changes. A large midline and left paracentral disc extrusion is present measuring 1.72 cm in width resulting in mild central canal stenosis as well as left lateral recess stenosis and compression of descending nerve root. Normal bilateral facet joints. Normal bilateral intervertebral neural foramina. L5-S1: Normal endplates. Normal disc height, hydration and morphology. Normal bilateral facet joints. Normal central canal and bilateral lateral recesses. Normal bilateral intervertebral neural foramina. Normal visualized sacral ala. Normal visualized paraspinous soft tissue structures. MRI/Spine Lumbar (Routine) IMPRESSION: 1. Large disc extrusion at L4-L5 causing mild central canal stenosis and left lateral recess stenosis with compression of descending nerve root Electronically Signed: Elver John MD at 15:40 EDT ,
[2021-12-20] MEDS: Ketorolac 30 MG/ML Syringe IV (12:26)
[2021-12-20] MEDS: Ondansetron 4 MG/2 ML Vial IV (12:26)
[2021-12-20 12:37] LABS: Absolute Lymphocyte Count 0.75 X10^3/uL (0.83-4.51); Hemoglobin 12.3 g/dL (13.0-16.5); Lymphocyte # 0.75 X10^3/ul (0.83-4.51); Lymphocyte % 8.8 % (19-41); Mean Corpuscular Hgb 22.9 pg (27.0-32.0); Mean Corpuscular Volume 76.4 fL (80-94); Mean Platelet Vol. 10.3 fl (6.2-12.0); Monocyte# 0.74 X10^3/uL; Monocyte% 8.7 % (0-10); NRBC Flagged by Analyzer 0 % (0-5); Neutrophil # 7.03 X10^3/uL (2.7-7.7); Neutrophil % 82.3 % (47-70); Platelet Count 291 K/mm3 (150-450); RBC Distribution Width CV 15.1 % (11.6-14.6); RBC Distribution Width SD 41.1 fl (35.1-43.9); Red Blood Count 5.37 M/mm3 (4.6-6.2); White Blood Count 8.5 K/mm3 (4.4-11.0)
[2021-12-20 12:54] LABS: Anion Gap 5 (5-15); BUN 11 mg/dL (7-18); BUN/Creat Ratio 11.4 RATIO (10-20); Calcium,Total 9.2 mg/dL (8.5-10.1); Chloride 105 mmol/L (98-107); Creatinine, Serum 0.97 mg/dL (0.70-1.30); EST Glomerular Filtration Rate 94 mL/min (>60); Est Glom Filt Rate - Afr Amer 114 mL/min (>60); Estimated Creatinine Clearance 92.46 ml/min; Glucose 133 mg/dL (74-106); Potassium 3.5 mmol/L (3.5-5.1); Sodium Level 138 mmol/L (136-145)
[2021-12-20] MEDS: HYDROmorphone 0.5 MG/0.5 ML SYRINGE IV ×2 (14:06→16:39)
[2021-12-20 14:11] VITALS: BP 126/75; PULSE 96; RESP 18; O2SAT 96
--- NOTE | 2021-12-20 14:25 | ED.RN ---
Pt left for MRI.
[2021-12-20 15:00] VITALS: BP 127/72; PULSE 74; RESP 16; O2SAT 99
[2021-12-20 16:00] VITALS: BP 123/74; PULSE 76; RESP 14; O2SAT 98
[2021-12-20] MEDS: predniSONE 20 MG Tablet 60 MG PO (16:39)
[2021-12-20 16:45] VITALS: BP 130/78; PULSE 78; RESP 14; TEMP 36.6; O2SAT 99
== END 2021-12-20 16:46 | disposition home or self-care (01) ==
PROVIDERS: Emergency Provider Emergency Medicine; Visit Provider Emergency Medicine
DX: M51.26 Other intervertebral disc displacement, lumbar region (principal); K50.90 Crohn's disease, unspecified, without complications; R39.15 Urgency of urination; F17.290 Nicotine dependence, other tobacco product, uncomplicated
CPT/HCPCS: 72148; 80048; 85025; 96374; 96375; 96376; 99284; A4216; J2405

== ENCOUNTER 2022-03-29 03:46 | Emergency (ER) | payer SELFPAY ==
[2022-03-29 03:48] VITALS: BP 156/86; PULSE 84; RESP 20; TEMP 37.1; O2SAT 97; BMI 27.3
--- NOTE | 2022-03-29 04:04 | CT_ITS ---
STUDY: CT ABDOMEN AND PELVIS WITH CONTRAST REASON FOR EXAM: Male, 36 years old. abd pain RADIATION DOSAGE (If Supplied By Facility): CTDIvol = ( 13.07 ) mGy, DLP = ( 881.71 ) mGycm TECHNIQUE: Transaxial images were obtained from the dome of the diaphragm to the symphysis pubis without oral contrast. IV 100mL Isovue-[id number] was administered. Sagittal and coronal images were reconstructed. Individualized dose optimization techniques were used for this CT. COMPARISON: None. FINDINGS: The visualized lung bases are unremarkable. The visualized portions of the heart are within normal limits. Normal liver. Normal gallbladder and extrahepatic biliary system. Normal spleen. Normal pancreas. Normal bilateral adrenal glands. Normal right kidney. Normal left kidney. Normal visualized stomach. There is thickening of the carrillo of the terminal loop with adjacent fat stranding suggesting active inflammatory bowel disease. There is a focus of markedly increased attenuation noted near the medial aspect of the terminal ileum may represent ulceration or beginning fistula formation. There is small bowel obstruction of the distal ileum due to chronic stricture in the terminal ileum loop. Normal colon. The appendix is visualized and appears normal. Normal abdominal aorta. Normal inferior vena cava. Normal retroperitoneum. Normal urinary bladder. Normal abdominal wall. Normal osseous structures. CT/Abdomen/Pelvis W IV Cont ONLY IMPRESSION: There is thickening of the carrillo of the terminal loop with adjacent fat stranding suggesting active inflammatory bowel disease. There is a focus of markedly increased attenuation noted near the medial aspect of the terminal ileum may represent ulceration or beginning fistula formation. There is small bowel obstruction of the distal ileum due to chronic stricture in the terminal ileum loop. Electronically Signed: Annika Patten MD at 5:21 EDT ,
--- NOTE | 2022-03-29 04:06 | EDS_ITS ---
HPI History of Present Illness Chief Complaint: Nausea/Vomiting Informant: patient Onset/Context/Timing Onset: Days Context: Gradual Onset Current Severity: Moderate Maximum Severity: Severe Narrative Narrative: Patient present secondary to abdominal pain and vomiting. He has a history of Crohn's disease. He states he felt as if he started getting a flare a couple days ago. He states usually if he gets himself bowel rest he can work through it. He has had increased pain and is not passing gas. He is concerned he has a bowel obstruction. He has had a small bowel resection performed approximately 10 years ago at the [facility] in [place]. He does not have a local physician or GI specialist. He denies fever or chills. PFSH PFSH Medical History Anxiety Crohn's disease GI bleed Kidney stones Smoker Home Medications NK 03/29/22 [History Last Taken Unknown] Allergy/AdvReac Type Severity Reaction Status Date / Time morphine AdvReac Itching Verified 03/29/22 03:47 Surgical History Hx of resection of small bowel S/P ORIF (open reduction internal fixation) fracture Social History (Updated 03/29/22 @ 05:[address] Anisha Black MD) household members: spouse Smoking Status: Current some day smoker tobacco type: cigars alcohol intake: current alcohol intake frequency: a few times a month substance use type: does not use ROS ROS ED Constitutional Constitutional ED: Denies chills or fever(s) Eyes Eyes: Denies change in vision or discharge from eye(s) ENT ENT ED: Denies discharge from eye(s), rhinorrhea or sore throat Cardiovascular Cardiovascular: Denies chest pain or palpitations Respiratory/Chest Respiratory/Chest: Denies cough or dyspnea Gastrointestinal Gastrointestinal: Reports abdominal pain, nausea and vomiting; Denies diarrhea Genitourinary Genitourinary ED: Denies dysuria Musculoskeletal Musculoskeletal: Denies back pain or extremity pain Integumentary Denies Abrasions or rash Neurologic Neurologic: Denies headache(s) or weakness Psychiatric Psychiatric: Denies anxiety or depression Allergic/Immunologic Allergic/Immunologic ED: Denies lip swelling or urticaria EXAM Physical Exam Const Vital Signs: 03/29/22 03:48 Temperature 98.7 F Temperature Source Oral Pulse Rate 84 Respiratory Rate 20 H Blood Pressure 156/86 H Blood Pressure Mean 109 Pulse Ox 97 Oxygen Delivery Method Room Air Positive well nourished and well developed General Appearance ED: well developed HEENT Reports normocephalic and head/scalp atraumatic Eyes PERRL and EOMs intact bilaterally Neck supple Chest Wall inspection of chest normal and palpation of chest normal Resp normal respiratory effort and clear to auscultation bilaterally Cardio regular rate and regular rhythm GI GI Narrative: Abdomen soft with diffuse tenderness palpation. No guarding or rebound. No active bowel sounds noted on auscultation. Palpation: soft Back/Spine no CVA tenderness Extremity normal to inspection Neuro oriented x3 and no sensory deficits noted Sensorium / Orientation: alert Motor Exam: strength 5/5 throughout Psych mental status grossly normal Skin no rashes or lesions noted MDM MDM MDM Narrative Medical decision making narrative: Patient was given Dilaudid and Zofran for pain and nausea. IV fluids given. Lab work obtained along with CT scan of the abdomen pelvis with IV contrast. Lab Data Attestation: I reviewed the patient's lab results. Labs: Laboratory Results - last 24 hr 03/29/22 03/29/22 03/29/22 04:00 04:00 06:00 WBC 10.6 RBC 6.04 Hgb 14.9 Hct 46.4 MCV 76.8 L MCH 24.7 L MCHC 32.1 RDW Std Deviation 50.4 H RDW Coeff of Latricia 19.2 H Plt Count 329 MPV 10.6 Immature Gran % (Auto) 0.400 Neut % (Auto) 84.7 H Lymph % (Auto) 8.7 L [place] % (Auto) 5.5 Eos % (Auto) 0.4 Baso % (Auto) 0.3 Absolute Neuts (auto) 9.0 H Absolute Lymphs (auto) 0.93 Nucleated RBC % 0 Sodium 139 Potassium 3.5 Chloride 105 Carbon Dioxide 23.0 Anion Gap 11 BUN 14 Creatinine 0.95 Estim Creat Clear Calc 94.41 Est GFR (MDRD) Af Amer 116 Est GFR (MDRD) Non-Af 96 BUN/Creatinine Ratio 14.7 Glucose 132 H Lactic Acid 0.8 Calcium 9.8 Total Bilirubin 0.50 Direct Bilirubin 0.12 AST 19 ALT 38 Alkaline Phosphatase 95 Total Protein 8.4 H Albumin 3.9 Globulin 4.5 H Lipase 109 Radiography Diagnostic Testing: Clinical Impression(s) from Imaging Studies Abdomen/Pelvis CT 03/29/22 04:04 IMPRESSION: There is thickening of the carrillo of the terminal loop with adjacent fat stranding suggesting active inflammatory bowel disease. There is a focus of markedly increased attenuation noted near the medial aspect of the terminal ileum may represent ulceration or beginning fistula formation. There is small bowel obstruction of the distal ileum due to chronic stricture in the terminal ileum loop. Electronically Signed: Annika Patten MD at 5:21 EDT , KUB X-Ray 03/29/22 05:38 IMPRESSION: NG tube is in good position in the stomach. Electronically Signed: Raymundo Soares MD at 6:43 EDT , Treatment and Re-Evaluation Narrative: CBC reveals normal white count. 84% neutrophils noted. Chemistry studies, LFTs, lipase normal. Lactic acid is normal. CT scan of the abdomen pelvis reveals thickening of the carrillo of the terminal loop of the ileum with adjacent fat stranding suggesting active inflammatory bowel disease. There is a focus of markedly increased attenuation noted near the medial aspect of the terminal ileum which may represent ulceration or beginning of a fistula formation. There is a small bowel obstruction of the distal ileum due to chronic stricture. Test results are discussed with Dr. Gaxiola, on-call for surgery. He states that because the patient has Crohn's with evidence of a possible fistula formation, he needs to be transferred to a facility with colorectal services. Patient has been accepted by Dr. Gomez at [facility]. We are awaiting bed at this time. NG tube was placed. Patient states he is very uncomfortable with this and is asking that it be removed. I advised him that we can remove it here but it may very well need to be replaced once he gets to [facility] as this is the only way to decompress his stomach. He voices understanding and still wants the NG tube removed. Discharge Plan Triage Chief Complaint: Nausea/Vomiting ED Provider: Samreen Vargas Dx/Rx/DC Orders Clinical Impression: SBO (small bowel obstruction), Crohn's disease Prescriptions: No Action NK Primary Care Provider: Care Physician,No Primary Referrals: Care Physician,No Primary [Primary Care Provider] - Disposition Disposition: Acute Care Hospital Discharge Location: [facility]
[2022-03-29] MEDS: 0.9% Normal Saline 1,000 ML 1000 ML IV (04:10)
[2022-03-29] MEDS: Ondansetron 4 MG/2 ML Vial IV ×4 (04:10→15:37)
[2022-03-29] MEDS: HYDROmorphone 1 MG/ML Syringe 0.5 MG IV ×2 (04:11→15:37)
[2022-03-29 04:12] LABS: Absolute Lymphocyte Count 0.93 X10^3/uL (0.83-4.51); Basophil# 0.03 X10^3/uL; Basophil% 0.3 % (0-1); Eosinophil# 0.04 X10^3/uL; Eosinophils% 0.4 % (0-5); Hematocrit 46.4 % (40-54); Hemoglobin 14.9 g/dL (13.0-16.5); Lymphocyte # 0.93 X10^3/ul (0.83-4.51); Lymphocyte % 8.7 % (19-41); Mean Corp Hgb Conc 32.1 g/dL (32-36); Mean Corpuscular Hgb 24.7 pg (27.0-32.0); Mean Corpuscular Volume 76.8 fL (80-94); Mean Platelet Vol. 10.6 fl (6.2-12.0); Monocyte# 0.58 X10^3/uL; Monocyte% 5.5 % (0-10); NRBC Flagged by Analyzer 0 % (0-5); Neutrophil # 9.01 X10^3/uL (2.7-7.7); Neutrophil % 84.7 % (47-70); Platelet Count 329 K/mm3 (150-450); RBC Distribution Width CV 19.2 % (11.6-14.6); RBC Distribution Width SD 50.4 fl (35.1-43.9); Red Blood Count 6.04 M/mm3 (4.6-6.2); White Blood Count 10.6 K/mm3 (4.4-11.0)
[2022-03-29 04:35] LABS: AST(SGOT) 19 U/L (15-37); Alanine Aminotransfer ALT/SGPT 38 U/L (16-61); Albumin, Serum 3.9 g/dL (3.2-5.0); Alkaline Phosphatase 95 U/L (45-117); Anion Gap 11 (5-15); BUN 14 mg/dL (7-18); BUN/Creat Ratio 14.7 RATIO (10-20); Bilirubin, Direct 0.12 mg/dL (0.00-0.30); Calcium,Total 9.8 mg/dL (8.5-10.1); Chloride 105 mmol/L (98-107); Creatinine, Serum 0.95 mg/dL (0.70-1.30); EST Glomerular Filtration Rate 96 mL/min (>60); Est Glom Filt Rate - Afr Amer 116 mL/min (>60); Estimated Creatinine Clearance 94.41 ml/min; Globulin 4.5 g/dL (2.2-4.2); Glucose 132 mg/dL (74-106); Lipase 109 U/L (73-393); Potassium 3.5 mmol/L (3.5-5.1); Protein, Total 8.4 g/dL (6.4-8.2); Sodium Level 139 mmol/L (136-145)
--- NOTE | 2022-03-29 05:38 | RAD_ITS ---
EXAM: XR ABDOMEN, 1 VIEW CLINICAL INDICATION: NG Insertion TECHNIQUE: Frontal supine view of the abdomen/pelvis. This report was created using [employer] report generation technology. COMPARISON: None. FINDINGS: LOWER THORAX: No acute pathology. GASTROINTESTINAL TRACT: Unremarkable. Non-obstructive. No bowel or stomach distention. ORGANS: Unremarkable as visualized. No organomegaly. No abnormal calcifications. BONES/JOINTS: No acute pathology. SOFT TISSUES: No acute pathology. TUBES, LINES AND DEVICES: NG tube is in good position in the stomach. RAD/Abdomen Single View (Portable) IMPRESSION: NG tube is in good position in the stomach. Electronically Signed: Raymundo Soares MD at 6:43 EDT ,
[2022-03-29] MEDS: 0.9% Normal Saline 1,000 ML 150 ML IV (06:03)
[2022-03-29] MEDS: Oxymetazoline 0.05% 1 SPRAY SPRAY.BTL 2 SPRAY NASAL (06:03)
[2022-03-29] MEDS: HYDROmorphone 0.5 MG/0.5 ML SYRINGE IV ×3 (06:03→11:11)
[2022-03-29 06:37] LABS: Lactic Acid 0.8 mmol/L (0.4-1.9)
--- NOTE | 2022-03-29 07:27 | NURSING ---
pt refusing NG tube pt requesting NG tube be removed. this nurse and doctor attempted to educate pt on importance of keeping NG tube in place. Pt still requesting NG be removed.
--- NOTE | 2022-03-29 07:30 | NURSING ---
[facility], CALLED. DR GARNICA, SURGERY ACCEPTED. NO CONSULT NEEDED. WAITING ON A ROOM
[2022-03-29 07:52] VITALS: BP 126/88; PULSE 92; RESP 18; O2SAT 97
--- NOTE | 2022-03-29 10:25 | NURSING ---
CALLED [facility], TALKED TO BIJAN. NO BED FOR PATIENT YET
[2022-03-29 11:03] VITALS: BP 103/72; PULSE 86; RESP 18; TEMP 36.4; O2SAT 95
--- NOTE | 2022-03-29 13:17 | NURSING ---
CALLED [facility] AGUILAR TALKED TO BENITA. NO BED YET. WAITING ON DISCHARGES. MAYBE EARLY EVENING
[2022-03-29 15:53] VITALS: BP 105/67; PULSE 93; RESP 16; O2SAT 94
--- NOTE | 2022-03-29 16:37 | NURSING ---
[facility]AS[facility] ORTEGA [id number] NURSE TO NURSE [phone]
[2022-03-29 18:06] VITALS: BP 108/78; PULSE 61; RESP 16; TEMP 36.4; O2SAT 94
[2022-03-29] MEDS: Metoclopramide 10 MG/2 ML Vial 5 MG IV (18:43)
== END 2022-03-29 19:18 | disposition short-term general hospital (02) ==
PROVIDERS: Emergency Provider Emergency Medicine; Visit Provider Emergency Medicine
DX: K50.90 Crohn's disease, unspecified, without complications (principal); F17.200 Nicotine dependence, unspecified, uncomplicated; Z87.442 Personal history of urinary calculi
CPT/HCPCS: 74018; 74177; 80048; 80076; 83605; 83690; 85025; 87811; 96361; 96374; 96375; 96376; 99285; J7030; Q9967; A4216; J2405

== ENCOUNTER 2022-07-16 07:38 | Emergency (ER) | payer SELFPAY ==
[2022-07-16] VITALS (7 sets, daily range): BP systolic 101–145; BP diastolic 59–78; PULSE 74–99; RESP 14–16; TEMP 36.6; O2SAT 92–98; BMI 27.8
--- NOTE | 2022-07-16 08:04 | CT_ITS ---
STUDY: CT ABDOMEN AND PELVIS WITH CONTRAST REASON FOR EXAM: Male, 36 years old. Abd pain, Crohn''s -- IV PO Contrast RESECTION OF JEJUNUM RADIATION DOSAGE (If Supplied By Facility): CTDIvol = ( 12.43 ) mGy, DLP = ( 976.73 ) mGycm TECHNIQUE: Transaxial images were obtained from the dome of the diaphragm to the symphysis pubis with oral contrast. Oral and amp; IV Gastrografin and amp; 100mL Isovue-300 was administered. Sagittal and coronal images were reconstructed. Individualized dose optimization techniques were used for this CT. COMPARISON: Comparison is made with prior study 03/29/2022. FINDINGS: Mild degree of dependent bibasilar atelectasis. The visualized portions of the heart are within normal limits. Normal liver. Normal gallbladder and extrahepatic biliary system. Normal spleen. Normal pancreas. Normal bilateral adrenal glands. Normal right kidney. Normal left kidney. Normal visualized stomach. Inflammatory changes are seen in the right lower quadrant with the diffuse circumferential wall thickening of the terminal ileum. There is matting of small bowel loops in the right lower quadrant suggestive of recurrent Crohn''s disease. This prominence of the mesenteric lymph nodes in the right lower quadrant. There is deformity and inflammatory changes of the adjacent cecum. A tiny calcified appendicolith is seen within the appendiceal lumen. Mild inflammatory changes is seen in the appendix. Normal abdominal aorta. Normal inferior vena cava. Normal retroperitoneum. Normal urinary bladder. Normal abdominal wall. Normal osseous structures. CT/Abdomen/Pelvis WITH Contrast IMPRESSION: Findings suggesting recurrent Crohn''s disease involving the terminal ileum as well as the cecum and the surrounding peritoneal fat as described. Tiny calcified appendicolith seen within the appendiceal lumen. The appendix is now thickened and slightly inflamed. Acute appendicitis should be ruled out. Electronically Signed: Moses Velásquez MD at 10:09 [facility] ,
--- NOTE | 2022-07-16 08:05 | EX.ED.DYSGE1 ---
HPI History of Present Illness Chief Complaint: Abd Pain Informant: patient Onset/Context/Timing Onset: Weeks Context: Gradual Onset Current Severity: Moderate Maximum Severity: Severe Narrative Narrative: Patient presents secondary to abdominal pain x1 month. He has a history of Crohn's and believes he had a Crohn's flare for the past month. He states usually he will take some steroids at home and follow a bland diet, however he does not have any medicine at this time. He has had vomiting. In the past he has had bowel obstructions, but states he is still able to pass air and stool at this time. Patient was seen by myself in March of last year with a Crohn's flare and bowel obstruction. At that time CT scan showed possible ulceration or early fistula formation. After discussion with surgery here it was felt the patient needed to be seen at a facility with colorectal surgery. Patient was transferred to [facility]. Patient states that he does not feel that any other testing was done at that facility. He states he just laid in bed for 4 days with bowel rest. He was not given any medication for home or GI follow-up. PFSH PFSH Medical History Anxiety Crohn's disease GI bleed Kidney stones Smoker Home Medications NK 03/29/22 [History Last Taken Unknown] Allergy/AdvReac Type Severity Reaction Status Date / Time morphine AdvReac Itching Verified 07/16/22 07:39 Surgical History Hx of resection of small bowel S/P ORIF (open reduction internal fixation) fracture Social History household members: spouse Smoking Status: Current some day smoker tobacco type: cigars alcohol intake: current alcohol intake frequency: a few times a month substance use type: does not use ROS ROS ED Constitutional Constitutional ED: Denies chills or fever(s) Eyes Eyes: Denies change in vision or discharge from eye(s) ENT ENT ED: Denies discharge from eye(s), rhinorrhea or sore throat Cardiovascular Cardiovascular: Denies chest pain or palpitations Respiratory/Chest Respiratory/Chest: Denies cough or dyspnea Gastrointestinal Gastrointestinal: Reports abdominal pain, nausea and vomiting; Denies diarrhea Genitourinary Genitourinary ED: Denies dysuria Musculoskeletal Musculoskeletal: Denies back pain or extremity pain Integumentary Denies Abrasions or rash Neurologic Neurologic: Denies headache(s) or weakness Psychiatric Psychiatric: Denies anxiety or depression Endocrine Endocrinology: Denies polydipsia or polyuria Allergic/Immunologic Allergic/Immunologic ED: Denies lip swelling or urticaria EXAM Physical Exam Const Vital Signs: 07/16/22 07:39 07/16/22 08:49 07/16/22 10:04 Temperature 97.8 F Temperature Source Temporal Pulse Rate 99 80 74 Respiratory Rate 16 Blood Pressure 145/78 H 114/71 101/63 Blood Pressure Mean 100 85 75 Pulse Ox 98 98 92 Oxygen Delivery Method Room Air Room Air Room Air 07/16/22 11:22 07/16/22 11:37 Temperature Temperature Source Pulse Rate 91 87 Respiratory Rate 14 Blood Pressure 107/69 113/64 Blood Pressure Mean 81 80 Pulse Ox 95 92 Oxygen Delivery Method Room Air Room Air Positive well nourished and well developed General Appearance ED: well developed HEENT Reports normocephalic and head/scalp atraumatic Eyes PERRL and EOMs intact bilaterally Neck supple Chest Wall inspection of chest normal and palpation of chest normal Resp normal respiratory effort and clear to auscultation bilaterally Cardio regular rate and regular rhythm GI GI Narrative: Hypoactive bowel sounds present. Diffuse lower abdominal tenderness palpation. No guarding or rebound. Palpation: soft Extremity normal to inspection Neuro oriented x3 and no sensory deficits noted Sensorium / Orientation: alert Motor Exam: strength 5/5 throughout Psych mental status grossly normal Skin no rashes or lesions noted MDM MDM MDM Narrative Medical decision making narrative: Patient was given Dilaudid and Zofran for pain and nausea control. Lab work obtained along with CT scan of the abdomen and pelvis. Lab Data Attestation: I reviewed the patient's lab results. Labs: Laboratory Results - last 24 hr 07/16/22 07/16/22 07/16/22 08:00 08:00 08:36 WBC 10.3 RBC 4.75 Hgb 9.0 L Hct 32.4 L MCV 68.2 L MCH 18.9 L MCHC 27.8 L RDW Std Deviation 43.7 RDW Coeff of Latricia 18.1 H Plt Count 630 H MPV 10.0 Immature Gran % (Auto) 0.500 Neut % (Auto) 85.2 H Lymph % (Auto) 6.1 L [place] % (Auto) 7.4 Eos % (Auto) 0.6 Baso % (Auto) 0.2 Absolute Neuts (auto) 8.8 H Absolute Lymphs (auto) 0.63 L Nucleated RBC % 0 Sodium 138 Potassium 3.3 L Chloride 102 Carbon Dioxide 30.0 Anion Gap 6 BUN 11 Creatinine 0.83 Estim Creat Clear Calc 108.06 Est GFR (MDRD) Af Amer 134 Est GFR (MDRD) Non-Af 111 BUN/Creatinine Ratio 13.2 Glucose 87 Lactic Acid 0.8 Calcium 8.8 Total Bilirubin 0.70 Direct Bilirubin 0.20 AST 9 L ALT 12 L Alkaline Phosphatase 46 Total Protein 7.4 Albumin 3.2 Globulin 4.2 Radiography Diagnostic Testing: Clinical Impression(s) from Imaging Studies Abdomen/Pelvis CT 07/16/22 08:04 IMPRESSION: Findings suggesting recurrent Crohn''s disease involving the terminal ileum as well as the cecum and the surrounding peritoneal fat as described. Tiny calcified appendicolith seen within the appendiceal lumen. The appendix is now thickened and slightly inflamed. Acute appendicitis should be ruled out. Electronically Signed: Moses Velásquez MD at 10:09 EST , Treatment and Re-Evaluation Narrative: CBC reveals normal white count with hemoglobin of 9.0. His prior hemoglobin was 14.5 in March. Platelet count is elevated at 630,000. He does have a left shift with 85% neutrophils. Chemistry studies significant only for slightly low potassium at 3.3. LFTs are unremarkable. Lactic acid is normal at 0.8. CT scan of the abdomen pelvis reveals findings consistent with Crohn's disease flare involving the terminal ileum and the cecum with surrounding peritoneal fat inflammation. There is a tiny calcified appendicolith with a thickened and inflamed appendix. This is concerning for mild acute appendicitis. Patient was given a dose of Zosyn. I spoke with Dr. Gaxiola, on-call for surgery. He presented to the emergency room to evaluate the patient. He also spoke with GI. Concern is that if he takes the appendix out here wound may not heal well given the inflammation noted in the cecum. He feels the patient would be better served with a colorectal surgeon. Patient has been accepted at [facility] and will be transferred to their ED for evaluation. Discharge Plan Triage Chief Complaint: Abd Pain ED Provider: Samreen Vargas Dx/Rx/DC Orders Clinical Impression: Crohn's disease, Appendicitis Prescriptions: No Action NK Primary Care Provider: Care Physician,No Primary Referrals: Memo Levine DO [Med Staff - Active Staff] - 1-2 Weeks Care Physician,No Primary [Primary Care Provider] - Disposition Disposition: Acute Care Hospital Discharge Location: [facility]
[2022-07-16 08:14] LABS: Absolute Lymphocyte Count 0.63 X10^3/uL (0.83-4.51); Absolute Neutrophil Count 8.8 X10^3/uL (2.0-7.7); Basophil# 0.02 X10^3/uL; Basophil% 0.2 % (0-1); Eosinophil# 0.06 X10^3/uL; Eosinophils% 0.6 % (0-5); Hematocrit 32.4 % (40-54); Lymphocyte # 0.63 X10^3/ul (0.83-4.51); Lymphocyte % 6.1 % (19-41); Mean Corp Hgb Conc 27.8 g/dL (32-36); Mean Corpuscular Hgb 18.9 pg (27.0-32.0); Mean Corpuscular Volume 68.2 fL (80-94); Monocyte# 0.76 X10^3/uL; Monocyte% 7.4 % (0-10); NRBC Flagged by Analyzer 0 % (0-5); Neutrophil % 85.2 % (47-70); Platelet Count 630 K/mm3 (150-450); RBC Distribution Width CV 18.1 % (11.6-14.6); RBC Distribution Width SD 43.7 fl (35.1-43.9); Red Blood Count 4.75 M/mm3 (4.6-6.2); White Blood Count 10.3 K/mm3 (4.4-11.0)
[2022-07-16] MEDS: 0.9% Normal Saline 1,000 ML 1000 ML IV (08:18)
[2022-07-16] MEDS: 0.9% Normal Saline 1,000 ML 150 ML IV (08:19)
[2022-07-16] MEDS: MethylPREDNISolone 125 MG/2 ML Vial IV (08:19)
[2022-07-16] MEDS: Ondansetron 4 MG/2 ML Vial IV (08:19)
[2022-07-16] MEDS: HYDROmorphone 1 MG/ML Syringe 0.5 MG IV (08:19)
[2022-07-16 08:32] LABS: AST(SGOT) 9 U/L (15-37); Alanine Aminotransfer ALT/SGPT 12 U/L (16-61); Albumin, Serum 3.2 g/dL (3.2-5.0); Alkaline Phosphatase 46 U/L (45-117); Anion Gap 6 (5-15); BUN 11 mg/dL (7-18); BUN/Creat Ratio 13.2 RATIO (10-20); Calcium,Total 8.8 mg/dL (8.5-10.1); Chloride 102 mmol/L (98-107); Creatinine, Serum 0.83 mg/dL (0.70-1.30); EST Glomerular Filtration Rate 111 mL/min (>60); Est Glom Filt Rate - Afr Amer 134 mL/min (>60); Estimated Creatinine Clearance 108.06 ml/min; Globulin 4.2 g/dL (2.2-4.2); Glucose 87 mg/dL (74-106); Potassium 3.3 mmol/L (3.5-5.1); Protein, Total 7.4 g/dL (6.4-8.2); Sodium Level 138 mmol/L (136-145)
[2022-07-16 09:23] LABS: Lactic Acid 0.8 mmol/L (0.4-1.9)
[2022-07-16] MEDS: HYDROmorphone 0.5 MG/0.5 ML SYRINGE IV ×3 (09:54→13:16)
--- NOTE | 2022-07-16 12:00 | NURSING ---
1147 CALLED [facility] 1150 CALLED [facility] 1152 CALLED [facility], FAXED FACESHEET, CALLED CT TO PUSH CAT SCAN
--- NOTE | 2022-07-16 12:01 | HP.PCM_ITS ---
HPI - General HPI Narrative ARISTIDES GILL, is a 36 M who presents to [facility] with complaints of severe right-sided abdominal pain, vomiting (hematemesis noted recently but none in the past 3 to 4 days), and abnormal bowel motility. He reports pain for the last 1 month but that this pain has grown acutely worse. Patient reports that he was diagnosed with Crohn's at the age of 9 and previously followed with gastroenterology on biologic agents, but then relocated to [place] and since his return from [place] has yet to successfully establish GI following. He states that he is doing the best he can on his own and by this he details that he has putting himself through bowel rest and previously would start leftover prednisone when he experienced a flare. He describes his abnormal bowel motility as not like a normal blockage and that he is still experiencing bowel function, but describes his pain as like scraping his insides. In addition to his prior gastroenterology following he reports a history of a jejunal resection via a midline laparotomy incision. Patient has very sporadic tobacco use and that he reports occasional cigar smoking (last cigar was 5 months ago). He notes that the smoking generally causes aggravation of his abdominal symptoms. [facility] Medical History Anxiety Crohn's disease GI bleed Kidney stones Smoker Home Medications NK 03/29/22 [History Last Taken Unknown] Allergy/AdvReac Type Severity Reaction Status Date / Time morphine AdvReac Itching Verified 07/16/22 07:39 Surgical History Hx of resection of small bowel S/P ORIF (open reduction internal fixation) fracture Social History household members: spouse Smoking Status: Current some day smoker tobacco type: cigars alcohol intake: current alcohol intake frequency: a few times a month substance use type: does not use Vital Signs Vital Signs Vital Signs: 07/16/22 07:39 07/16/22 08:49 07/16/22 10:04 Temperature 97.8 F Temperature Source Temporal Pulse Rate 99 80 74 Respiratory Rate 16 Blood Pressure 145/78 H 114/71 101/63 Blood Pressure Mean 100 85 75 Pulse Ox 98 98 92 Oxygen Delivery Method Room Air Room Air Room Air 07/16/22 11:22 07/16/22 11:37 Temperature Temperature Source Pulse Rate 91 87 Respiratory Rate 14 Blood Pressure 107/69 113/64 Blood Pressure Mean 81 80 Pulse Ox 95 92 Oxygen Delivery Method Room Air Room Air Weight Weight: 167 lb Body Mass Index (BMI) 27.8 Physical Exam Const alert and oriented x3 Constitutional Narrative: Mild distress from abdominal discomfort General Appearance: cooperative Resp normal respiratory effort GI GI Narrative: Tattooed abdomen, but evident well?healed midline laparotomy incision. Nondistended. Soft and tender to palpation along right abdominal quadrants (greatest intensity in the right lower quadrant). Positive obturator and psoas signs. Negative Rovsing sign. Results Lab / Micro Data Result Diagrams: 07/16/22 08:00 07/16/22 08:00 Labs: Laboratory Results - last 24 hr 07/16/22 08:00: WBC 10.3, RBC 4.75, Hgb 9.0 L, Hct 32.4 L, MCV 68.2 L, MCH 18.9 L, MCHC 27.8 L, RDW Std Deviation 43.7, RDW Coeff of Latricia 18.1 H, Plt Count 630 H , MPV 10.0, Immature Gran % (Auto) 0.500, Neut % (Auto) 85.2 H, Lymph % (Auto) 6.1 L, [place] % (Auto) 7.4, Eos % (Auto) 0.6, Baso % (Auto) 0.2, Absolute Neuts (auto) 8.8 H, Absolute Lymphs (auto) 0.63 L, Nucleated RBC % 0 07/16/22 08:00: Sodium 138, Potassium 3.3 L, Chloride 102, Carbon Dioxide 30.0, Anion Gap 6, BUN 11, Creatinine 0.83, Estim Creat Clear Calc 108.06, Est GFR (MDRD) Af Amer 134, Est GFR (MDRD) Non-Af 111, BUN/Creatinine Ratio 13.2, Glucose 87, Calcium 8.8, Total Bilirubin 0.70, Direct Bilirubin 0.20, AST 9 L, ALT 12 L, Alkaline Phosphatase 46, Total Protein 7.4, Albumin 3.2, Globulin 4.2 07/16/22 08:36: Lactic Acid 0.8 Radiology Impression Abdomen/Pelvis CT 07/16/22 08:04 IMPRESSION: Findings suggesting recurrent Crohn''s disease involving the terminal ileum as well as the cecum and the surrounding peritoneal fat as described. Tiny calcified appendicolith seen within the appendiceal lumen. The appendix is now thickened and slightly inflamed. Acute appendicitis should be ruled out. Electronically Signed: Moses Velásquez MD at 10:09 EST , Assessment & Plan Assessment/Plan (1) Appendicitis: PLAN: This is a 36-year-old male?diagnosed with Crohn's disease (that is currently unmanaged)?who presents with appendicitis in the midst of a Crohn's flare. I believe patient's appendicitis is secondary to his inflammatory bowel disease process. While I would like to offer him nonoperative management and coordinate a care plan with gastroenterology, I am concerned for failure of nonoperative management on account of a appendicolith noted on patient's CT im aging. With there being a higher probability of failure of nonoperative management, I have requested transfer of patient to a tertiary facility with colorectal surgery/inflammatory bowel disease expertise. I have shared with patient that I would be concerned about being able to access the appendix normally on the account of his prior surgical intervention and current Crohn's flare as well as concern for staple line integrity given the diffuse inflammatory change of both the small bowel and the cecum. Patient expressed understanding of these concerns and appreciation for my evaluation. Agree with emergency medicine's placement of patient on empiric antibiotic therapy. (2) Crohn's disease: QUALIFIERS: Gastrointestinal tract location: small intestine Digestive disease complication type: without complication Qualified Code(s): K50.00 - Crohn's disease of small intestine without complications PLAN: Patient requires maintenance of his inflammatory bowel disease diagnosis. Telephone call was made to Dr. Levine of gastroenterology and he confirms that they would be willing to help patient once he resolves this acute issue. Charges/Coding Visit Charges Inpatient E&M: 74212 Init Hosp L2
--- NOTE | 2022-07-16 12:57 | ED.RN ---
report given to Maryam at [facility]
== END 2022-07-16 13:21 | disposition short-term general hospital (02) ==
PROVIDERS: Emergency Provider Emergency Medicine; Visit Provider Emergency Medicine
DX: K50.00 Crohn's disease of small intestine without complications (principal); K37 Unspecified appendicitis; F17.200 Nicotine dependence, unspecified, uncomplicated; Z87.442 Personal history of urinary calculi
CPT/HCPCS: 74177; 80048; 80076; 83605; 85025; 99283; J7030; Q9967; A4216; J2405

== ENCOUNTER → 2022-12-02 | Outpatient (CLI) | payer SELFPAY ==
[2022-12-02 11:34] LABS: Erythrocyte Sedimentation Rate 12 mm/hr (0-20)
[2022-12-05 19:07] LABS: Beef <0.10 kU/L (Class 0); Chocolate <0.10 kU/L (Class 0); Clam <0.10 kU/L (Class 0); Codfish <0.10 kU/L (Class 0); Corn <0.10 kU/L (Class 0); Egg, White <0.10 kU/L (Class 0); Egg, Whole <0.10 kU/L (Class 0); Milk (Cow) <0.10 kU/L (Class 0); Peanut 0.13 kU/L (Class 0/I); Pork <0.10 kU/L (Class 0); SCALLOP <0.10 kU/L (Class 0); SESAME SEED <0.10 kU/L (Class 0); Shrimp <0.10 kU/L (Class 0); Soybean <0.10 kU/L (Class 0); Walnut, (Food) <0.10 kU/L (Class 0); Wheat <0.10 kU/L (Class 0)
[2022-12-06 01:07] LABS: Cytoplasmic Ab (C-ANCA) <1:20 titer (Neg:<1:20); Immunoglobulin A 234 mg/dL (90-386); Immunoglobulin E 26 IU/mL (6-495); Immunoglobulin G 1057 mg/dL (603-1613); Immunoglobulin M 121 mg/dL (20-172); Perinuclear Ab (P-ANCA) <1:20 titer (Neg:<1:20)
== END | disposition home or self-care (01) ==
LOC: LAB 10:35
PROVIDERS: Referring Provider Internal Medicine Gastroenterology; Visit Provider Internal Medicine Gastroenterology
DX: K50.90 Crohn's disease, unspecified, without complications (principal)
CPT/HCPCS: 36415; 82784; 82785; 85652; 86003; 86005; 86140; 86256

== ENCOUNTER 2023-03-22 09:42 | Emergency (ER) | payer SELFPAY ==
[2023-03-22 09:43] VITALS: BP 145/91; PULSE 94; RESP 18; TEMP 35.7; O2SAT 97; BMI 30.4
--- NOTE | 2023-03-22 10:06 | CT_ITS ---
STUDY: CT RIGHT HIP REASON FOR EXAM: Male, 37 years old. Trauma CONTRAST: None. TECHNIQUE: Transaxial imaging of the hip was performed with reformatted sagittal and coronal images. Individualized dose optimization techniques were used for this CT. COMPARISON: No relevant prior comparison study available FINDINGS: HIP Normal hip joint without articular joint space narrowing. Normal acetabulum. Normal femoral neck and intertrochanteric region. There is no demonstrated fracture of the right hip. VISUALIZED OSSEOUS PELVIS No other fracture is seen. Soft tissue calcification lateral to the greater trochanter could represent mild calcific tendinitis. CT/Extremity Lower without Contra IMPRESSION: No evidence of acute fracture. Electronically Signed: Garland Barnard MD at 11:47 EDT ,
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
[2023-03-22] MEDS: Cephalexin 250 MG Capsule 500 MG PO (12:23)
== END 2023-03-22 12:28 | disposition home or self-care (01) ==
PROVIDERS: Emergency Provider Emergency Medicine; Visit Provider Emergency Medicine
DX: S30.0XXA Contusion of lower back and pelvis, initial encounter (principal); V86.35XA Unspecified occupant of 3- or 4- wheeled all-terrain vehicle (ATV) injured in traffic accident, initial encounter; F17.290 Nicotine dependence, other tobacco product, uncomplicated
CPT/HCPCS: 73700; 99282

== ENCOUNTER → 2023-04-14 | Outpatient (CLI) | payer SELFPAY ==
[2023-04-14 10:04] LABS: Absolute Lymphocyte Count 1.17 X10^3/uL (0.83-4.51); Absolute Neutrophil Count 3.3 X10^3/uL (2.0-7.7); Basophil# 0.05 X10^3/uL; Basophil% 0.9 % (0-1); Eosinophil# 0.15 X10^3/uL; Eosinophils% 2.8 % (0-5); Hemoglobin 12.3 g/dL (13.0-16.5); Lymphocyte # 1.17 X10^3/ul (0.83-4.51); Lymphocyte % 22.2 % (19-41); Mean Corp Hgb Conc 28.6 g/dL (32-36); Mean Corpuscular Hgb 20.7 pg (27.0-32.0); Mean Corpuscular Volume 72.4 fL (80-94); Mean Platelet Vol. 10.6 fl (6.2-12.0); Monocyte% 11.4 % (0-10); NRBC Flagged by Analyzer 0 % (0-5); Neutrophil # 3.29 X10^3/uL (2.7-7.7); Neutrophil % 62.5 % (47-70); POSITIVE MORPHOLOGY YES; Platelet Count 258 K/mm3 (150-450); RBC Distribution Width CV 21.3 % (11.6-14.6); RBC Distribution Width SD 52.9 fl (35.1-43.9); Red Blood Count 5.94 M/mm3 (4.6-6.2); White Blood Count 5.3 K/mm3 (4.4-11.0)
[2023-04-14 10:07] LABS: Differential Indicated SCAN CRITERIA MET; Erythrocyte Sedimentation Rate 7 mm/hr (0-20)
[2023-04-14 10:37] LABS: AST(SGOT) 19 U/L (15-37); Alanine Aminotransfer ALT/SGPT 32 U/L (16-61); Albumin, Serum 3.7 g/dL (3.2-5.0); Alkaline Phosphatase 53 U/L (45-117); Anion Gap 2 (5-15); BUN 12 mg/dL (7-18); CRP < 2.90 mg/L (0.0-3.0); Calcium,Total 8.7 mg/dL (8.5-10.1); Chloride 106 mmol/L (98-107); Creatinine, Serum 0.86 mg/dL (0.70-1.30); EST Glomerular Filtration Rate 107 mL/min (>60); Est Glom Filt Rate - Afr Amer 130 mL/min (>60); Globulin 3.7 g/dL (2.2-4.2); Glucose 94 mg/dL (74-106); Protein, Total 7.4 g/dL (6.4-8.2); Sodium Level 134 mmol/L (136-145)
[2023-04-18 20:07] LABS: Calprotectin, Stool 100 ug/g (0-120)
== END | disposition home or self-care (01) ==
PROVIDERS: Referring Provider Internal Medicine Gastroenterology; Visit Provider Internal Medicine Gastroenterology
DX: K50.90 Crohn's disease, unspecified, without complications (principal)
CPT/HCPCS: 36415; 80053; 83630; 83993; 85025; 85652; 86140

== ENCOUNTER 2023-12-03 12:13 | Inpatient (IN) | payer MEDICAID, SELFPAY ==
[2023-12-03 12:14] VITALS: BP 132/99; PULSE 83; RESP 16; TEMP 36.4; O2SAT 96; BMI 29.1
--- NOTE | 2023-12-03 12:55 | CT_ITS ---
STUDY: CT ABDOMEN AND PELVIS WITH CONTRAST REASON FOR EXAM: Male, 38 years old. chron disease possible Partial SBO -- IV PO Contrast. RADIATION DOSAGE (If Supplied By Facility): CTDIvol = ( 11.35 ) mGy, DLP = ( 753.13 ) mGycm TECHNIQUE: Transaxial images were obtained from the dome of the diaphragm to the symphysis pubis with oral contrast. Oral and amp; IV Gastrografin and amp; 100mL Isovue-300 was administered. Sagittal and coronal images were reconstructed. Individualized dose optimization techniques were used for this CT. COMPARISON: Comparison is made with prior study dated January 13, 2023. FINDINGS: Minimal degree of bibasilar linear atelectasis. The visualized portions of the heart are within normal limits. There is decreased attenuation of the liver consistent with steatosis. Normal gallbladder and extrahepatic biliary system. Normal spleen. Normal pancreas. Normal bilateral adrenal glands. Normal right kidney. Normal left kidney. Normal visualized stomach. There is diffuse circumferential wall thickening of the terminal and distal ileum with the mild degree of dilatation of the distal ileal loops. Increased markings are seen in the surrounding peritoneal fat. Findings suggestive of the recurrent Crohn''s disease. Normal colon. The appendix is slightly thickened measuring 9.1 mm although the lumen is patent. Questionable tiny appendicolith within the appendiceal lumen. Minimal amount of free fluid is seen in the right paracolic gutter. Normal abdominal aorta. Normal inferior vena cava. Normal retroperitoneum. Normal urinary bladder. Normal abdominal wall. Normal osseous structures. CT/Abdomen/Pelvis WITH Contrast IMPRESSION: Findings suggestive of recurrent Crohn''s disease involving the terminal and distal ileum with the evidence of circumferential wall thickening and edematous changes. This is improved as compared to prior study. Increased markings are seen in the surrounding peritoneal fat. Mild thickening of the appendix. Electronically Signed: Moses Velásquez MD at 14:58 EDT ,
--- NOTE | 2023-12-03 12:56 | EDS_ITS ---
HPI HPI - GI History of Present Illness Chief Complaint: Abd Pain Informant: patient Narrative Narrative: 38-year-old male presenting to the emergency room out of concern for small bowel obstruction. Patient has a history of Crohn's disease and is currently following with Dr. Levine from gastroenterology. He has a history of partial small bowel obstructions. Patient notes he has had prior small bowel resection of the jejunum. Patient states he began to have pain and vomiting about 4 days ago. He has been doing partial bowel rest with liquids. He continues to vomit. No bowel movement in the past 4 days. No blood in vomit. No reported fevers. PFSH PFS Medical History Anxiety Kidney stones GI bleed Smoker Crohn's disease Home Medications ?Medication ?Instructions ?Recorded ?Last Taken ?Type ustekinumab 90 mg/mL subcutaneous 90 mg subcut Q8W #1 mL 09/02/23 10/17/23 Rx syringe (Stelara) budesonide 3 mg See Rx Instructions PO DAILY #90 ea 10/13/23 Unknown Rx capsule,delayed,extended release liver detox 1 cap PO QHS supplement 12/03/23 12/01/23 History tetrahydrozoline 0.05 % eye drops 1 drp EACH EYE BID PRN allergy 12/03/23 12/02/23 History (Visine) symptoms turmeric 400 mg capsule 800 mg PO BID 12/03/23 12/02/23 History Allergy/AdvReac Type Severity Reaction Status Date / Time morphine AdvReac Itching Verified 12/03/23 12:16 Surgical History S/P ORIF (open reduction internal fixation) fracture Hx of resection of small bowel Social History household members: spouse Smoking Status: Current some day smoker tobacco type: cigars alcohol intake: current alcohol intake frequency: a few times a month substance use type: does not use ROS ROS ED Constitutional Constitutional ED: Reports chills; Denies fever(s) or weight loss Eyes Eyes: Denies change in vision or diplopia ENT ENT ED: Denies ear pain, rhinorrhea or sore throat Cardiovascular Cardiovascular: Denies chest pain, orthopnea, palpitations or racing heartbeat Respiratory/Chest Respiratory/Chest: Denies cough, dyspnea or orthopnea Gastrointestinal Gastrointestinal: Reports abdominal pain, constipation, nausea and vomiting; Denies diarrhea Genitourinary Genitourinary ED: Denies dysuria, hematuria or urinary frequency Musculoskeletal Musculoskeletal: Denies arthralgias or myalgias Integumentary Denies abscess or rash Neurologic Neurologic: Denies headache(s) or weakness Psychiatric Psychiatric: Denies anxiety, depression, suicidal ideation or suicidal thoughts Endocrine Endocrinology: Denies polydipsia, polyphagia or polyuria Allergic/Immunologic Allergic/Immunologic ED: Denies mouth swelling, tongue swelling or urticaria EXAM Physical Exam Const Vital Signs: 12/03/23 12:14 12/03/23 15:24 Temperature 97.6 F L Temperature Source Temporal Pulse Rate 83 71 Respiratory Rate 16 16 Blood Pressure 132/99 H 125/75 H Blood Pressure Mean 110 91 Pulse Ox 96 100 Oxygen Delivery Method Room Air Room Air Positive well nourished and well developed General Appearance ED: well developed and NAD HEENT Reports normocephalic, head/scalp atraumatic and moist mucous membranes Eyes PERRL and EOMs intact bilaterally Neck no lymphadenopathy, supple and no JVD Resp normal respiratory effort and clear to auscultation bilaterally Cardio regular rate, regular rhythm and no murmurs GI Inspection: Negative for abdominal distention Auscultation: hypoactive bowel sounds Palpation: soft, tender other (Diffuse tenderness to palpation worse in the periumbilical right lower quadrant region) and guarding Back/Spine no CVA tenderness and normal ROM Extremity normal to inspection General Extremety ED: Negative for edema General Extremity: Negative for edema Neuro oriented x3 and CN's II-XII intact bilaterally Sensorium / Orientation: alert Motor Exam: strength 5/5 throughout Psych mental status grossly normal Mood & Affect: Negative for depressed or tearful Skin no rashes or lesions noted and no wounds MDM MDM MDM Narrative Medical decision making narrative: Differential diagnosis includes but not limited to but not limited to small bowel obstruction partial obstruction Crohn's disease flare, perforated viscus intra-abdominal abscess dehydration White count returns at 6.8 with a hemoglobin of 16. Platelet count is 233. Creatinine 0.89 lipase is 35 normal liver enzymes. BUN of 9 anion gap is 4 CO2 of 26. Patient received IV fluids Dilaudid and Zofran. CT of the abdomen pelvis with oral and IV contrast was obtained. This was reviewed by myself and read by radiology. There is circumferential wall thickening of the terminal ileum with a mild degree of dilatation of the distal ileal loops. Stranding noted in the peritoneal fat. The appendix is visualized by radiology measuring slightly thickened at 9.1 mm with a patent lumen. They question an appendicolith within the appendiceal lumen. Mild amount of fluid in the right pericolic gutter. I reviewed the case with the patient's rn mds coordinator Dr. Levine as well as with Dr. Gaxiola from general surgery. Patient be given a dose of Solu-Medrol as well as Zosyn. Our plan is admission to the hospital History & Record Review Discussion w/independent historian: Patient Lab Data Attestation: I reviewed the patient's lab results. Labs: Laboratory Results - last 24 hr 12/03/23 12:25 WBC 6.8 RBC 6.20 Hgb 16.0 Hct 51.4 MCV 82.9 MCH 25.8 L MCHC 31.1 L RDW Std Deviation 46.6 H RDW Coeff of Latricia 16.1 H Plt Count 233 MPV 10.6 Immature Gran % (Auto) 0.400 Neut % (Auto) 81.3 H Lymph % (Auto) 7.8 L [place] % (Auto) 9.0 Eos % (Auto) 0.9 Baso % (Auto) 0.6 Absolute Neuts (auto) 5.5 Absolute Lymphs (auto) 0.53 L Nucleated RBC % 0 Sodium 134 L Potassium 3.8 Chloride 104 Carbon Dioxide 26.0 Anion Gap 4 L BUN 9 Creatinine 0.89 Estim Creat Clear Calc 110.35 Est GFR (MDRD) Af Amer 124 Est GFR (MDRD) Non-Af 102 BUN/Creatinine Ratio 10.1 Glucose 90 Calcium 8.8 Total Bilirubin 0.90 Direct Bilirubin 0.24 AST 24 ALT 35 Alkaline Phosphatase 68 Total Protein 7.7 Albumin 3.8 Globulin 3.9 Lipase 35 Radiography Diagnostic Testing: Clinical Impression(s) from Imaging Studies Abdomen/Pelvis CT 12/03/23 12:55 IMPRESSION: Findings suggestive of recurrent Crohn''s disease involving the terminal and distal ileum with the evidence of circumferential wall thickening and edematous changes. This is improved as compared to prior study. Increased markings are seen in the surrounding peritoneal fat. Mild thickening of the appendix. Electronically Signed: Moses Velásquez MD at 14:58 EDT , Management Discussion w/another healthcare provider: Hospitalist (Dr. Casper) and Television Production Clerk (Dr Levine (GI) Dr. Gaxiola (Surgery)) Discharge Plan Dx/Rx/DC Orders Clinical Impression: Exacerbation of Crohn's disease, Abdominal pain, acute, Vomiting Disposition Disposition: Acute Care Hospital [facility]
[2023-12-03] MEDS: Ondansetron 4 MG/2 ML Vial IV (13:03)
[2023-12-03] MEDS: 0.9% Normal Saline (1000mL) 1,000 ML 999 ML IV (13:03)
[2023-12-03 13:04] LABS: Absolute Lymphocyte Count 0.53 X10^3/uL (0.83-4.51); Absolute Neutrophil Count 5.5 X10^3/uL (2.0-7.7); Basophil# 0.04 X10^3/uL; Basophil% 0.6 % (0-1); Eosinophil# 0.06 X10^3/uL; Eosinophils% 0.9 % (0-5); Hematocrit 51.4 % (40-54); Lymphocyte # 0.53 X10^3/ul (0.83-4.51); Lymphocyte % 7.8 % (19-41); Mean Corp Hgb Conc 31.1 g/dL (32-36); Mean Corpuscular Hgb 25.8 pg (27.0-32.0); Mean Corpuscular Volume 82.9 fL (80-94); Mean Platelet Vol. 10.6 fl (6.2-12.0); Monocyte# 0.61 X10^3/uL; NRBC Flagged by Analyzer 0 % (0-5); Neutrophil # 5.52 X10^3/uL (2.7-7.7); Neutrophil % 81.3 % (47-70); POSITIVE DIFFERENTIAL YES; Platelet Count 233 K/mm3 (150-450); RBC Distribution Width CV 16.1 % (11.6-14.6); RBC Distribution Width SD 46.6 fl (35.1-43.9); White Blood Count 6.8 K/mm3 (4.4-11.0)
[2023-12-03] MEDS: HYDROmorphone 1 MG/ML Syringe IV ×2 (13:04→15:38)
[2023-12-03 13:24] LABS: AST(SGOT) 24 U/L (15-37); Alanine Aminotransfer ALT/SGPT 35 U/L (16-61); Albumin, Serum 3.8 g/dL (3.2-5.0); Alkaline Phosphatase 68 U/L (45-117); Anion Gap 4 (5-15); BUN 9 mg/dL (7-18); BUN/Creat Ratio 10.1 RATIO (10-20); Bilirubin, Direct 0.24 mg/dL (0.00-0.30); Calcium,Total 8.8 mg/dL (8.5-10.1); Chloride 104 mmol/L (98-107); Creatinine, Serum 0.89 mg/dL (0.70-1.30); EST Glomerular Filtration Rate 102 mL/min (>60); Est Glom Filt Rate - Afr Amer 124 mL/min (>60); Estimated Creatinine Clearance 110.35 ml/min; Globulin 3.9 g/dL (2.2-4.2); Glucose 90 mg/dL (74-106); Lipase 35 U/L (13-75); Potassium 3.8 mmol/L (3.5-5.1); Protein, Total 7.7 g/dL (6.4-8.2); Sodium Level 134 mmol/L (136-145)
[2023-12-03 15:24] VITALS: BP 125/75; PULSE 71; RESP 16; O2SAT 100
[2023-12-03] MEDS: 0.9% Normal Saline (1000mL) 1,000 ML 125 ML IV (15:39)
--- NOTE | 2023-12-03 16:19 | NURSING ---
MED SURG [facility]
[2023-12-03 16:32] VITALS: BP 125/75; PULSE 72; RESP 16; TEMP 36.3; O2SAT 100
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
[2023-12-03 16:42] VITALS: BP 125/75; PULSE 72; RESP 16; TEMP 36.3; O2SAT 100
[2023-12-03] MEDS: MethylPREDNISolone 125 MG/2 ML Vial 80 MG IV ×3 (16:43→23:02)
[2023-12-03] MEDS: Piperacil/Tazobactam 4.5 GM in 0.9% Normal Saline (100mL MB+) 100 ML IV (16:44)
--- NOTE | 2023-12-03 17:02 | CON.PCM.SX_ITS ---
Assessment & Plan Assessment/Plan (1) Abdominal pain, acute: PLAN: Patient 38-year-old male who presents with 4-day history of progressive abdominal discomfort and relative obstipation which by emergency medicine workup seems to confirm patient's suspicion for recurrent Crohn's disease flare. Surgery was asked to evaluate patient given radiology reporting of mildly dilated appendix with mild wall thickening. Notably patient has no elevated white blood cell count despite now 4 days of symptoms and is more tender in the right upper abdominal quadrants and over McBurney's point. Furthermore, I find it reassuring that patient's appendiceal lumen is confirmed as patent and I do compare patient's CT imaging from today to the last CT imaging available in our EMR from 07/16/2022. Through this comparison I find that patient's appendix previously measured 1.3 cm in diameter and thus today's study shows some improvement from before. Ultimately, I do suspect that the appendix is just secondarily involved through its association with the terminal ileum geographically/anatomically. Given this impression, I would defer management to gastroenterology and have counseled patient that should his flare progress further clinically and require surgical intervention that I would recommend transfer to a tertiary facility where surgical expertise with inflammatory bowel disease is available. Given patient's young age this sort of involvement is essential to limit the degree of surgical intervention and preserve GI tract. Raymundo Gaxiola MD General Surgery Endocrine Surgery Pager: [facility] [address] [place] [address], [address] [place] [address] Office: [phone] (2) Exacerbation of Crohn's disease: HPI Consult Data Date of Consult: 12/03/23 HPI Narrative Reason for Consultation: Rule out appendicitis HPI Narrative: ARISTIDES GILL, is a 38 M who presents to [facility] with complaints of 4-day history of progressive abdominal discomfort, obstipation, and nausea and vomiting. Patient is known to me from a prior ER presentation July 16, 2022. At that time he was evaluated for a Crohn's flare and was ultimately transferred to the [facility] out of my concern for his need for possible surgical intervention given his diagnosis of Crohn's disease. He presents with his today and she shares that this episode was resolved through bowel rest, antibiotics, and steroids. Mr. Gill shares that he established following with Dr. Friend the month following that visit and has done fairly well on Stelara and budesonide?not requiring any further ER visits?but admitting that he experiences more episodes when he is coming due for his next Stelara administration. He shares that he generally has at least 1 loose bowel movement a day but has not had anything for 4 days and thus imposed a liquid diet upon himself hoping that he could just get through. Patient's ER workup is notable for CBC without elevated WBC. CT imaging of the abdomen pelvis read by radiology as significant for terminal ileal thickening that was read by radiology is concerning for recurrent Crohn's disease yet overall improved from prior study. Additionally radiology noted the presence of a 9.1 mm dilated appendix with mild wall thickening. Radiology additionally described a possible small appendicolith as well as confirmed the patency of the appendix lumen. [facility] Medical History Anxiety Kidney stones GI bleed Smoker Crohn's disease Home Medications ?Medication ?Instructions ?Recorded ?Last Taken ?Type ustekinumab 90 mg/mL subcutaneous 90 mg subcut Q8W #1 mL 09/02/23 10/17/23 Rx syringe (Stelara) budesonide 3 mg See Rx Instructions PO DAILY #90 ea 10/13/23 Unknown Rx capsule,delayed,extended release liver detox 1 cap PO QHS supplement 12/03/23 12/01/23 History tetrahydrozoline 0.05 % eye drops 1 drp EACH EYE BID PRN allergy 12/03/23 12/02/23 History (Visine) symptoms turmeric 400 mg capsule 800 mg PO BID 12/03/23 12/02/23 History Allergy/AdvReac Type Severity Reaction Status Date / Time morphine AdvReac Itching Verified 12/03/23 12:16 Surgical History S/P ORIF (open reduction internal fixation) fracture Hx of resection of small bowel Social History household members: spouse Smoking Status: Current some day smoker tobacco type: cigars alcohol intake: current alcohol intake frequency: a few times a month substance use type: does not use Physical Exam Const alert and oriented x3 General Appearance: cooperative Resp normal respiratory effort GI GI Narrative: Minimally distended, tattoo covers upper abdomen where there is evidence of a well-healed laparotomy scar. No visible herniations. Patient has tenderness with palpation of the right abdominal quadrants but right upper abdominal quadrant is significantly more tender than right lower abdominal quadrant (over McBurney's point). Lab / Micro Data 12/03/23 12:25 12/03/23 12:25 Labs: Laboratory Results - last 24 hr 12/03/23 12:25: WBC 6.8, RBC 6.20, Hgb 16.0, Hct 51.4, MCV 82.9, MCH 25.8 L, M CHC 31.1 L, RDW Std Deviation 46.6 H, RDW Coeff of Latricia 16.1 H, Plt Count 233, MPV 10.6, Immature Gran % (Auto) 0.400, Neut % (Auto) 81.3 H, Lymph % (Auto) 7.8 L, [place] % (Auto) 9.0, Eos % (Auto) 0.9, Baso % (Auto) 0.6, Absolute Neuts (auto) 5.5, Absolute Lymphs (auto) 0.53 L, Nucleated RBC % 0, Sodium 134 L, Potassium 3.8, Chloride 104, Carbon Dioxide 26.0, Anion Gap 4 L, BUN 9, Creatinine 0.89, Estim Creat Clear Calc 110.35, Est GFR (MDRD) Af Amer 124, Est GFR (MDRD) Non-Af 102, BUN/Creatinine Ratio 10.1, Glucose 90, Calcium 8.8, Total Bilirubin 0.90, Direct Bilirubin 0.24, AST 24, ALT 35, Alkaline Phosphatase 68, Total Protein 7.7, Albumin 3.8, Globulin 3.9, Lipase 35 Imaging Radiology Impression Abdomen/Pelvis CT 12/03/23 12:55 IMPRESSION: Findings suggestive of recurrent Crohn''s disease involving the terminal and distal ileum with the evidence of circumferential wall thickening and edematous changes. This is improved as compared to prior study. Increased markings are seen in the surrounding peritoneal fat. Mild thickening of the appendix. Electronically Signed: Moses Velásquez MD at 14:58 EDT , Charges/Coding Visit Charges Inpatient E&M: 11319 Init Hosp L2
[2023-12-03 17:07] LABS: Magnesium 2.2 mg/dL (1.6-2.6)
[2023-12-03] MEDS: KCL 20MEQ in 0.9% NS 20 MEQ/1,000 ML IV.SOLN. 100 MEQ IV (17:28)
[2023-12-03] MEDS: proCHLORPERazine 10 MG/2 ML Vial 5 MG IV ×2 (17:29→22:53)
[2023-12-03] MEDS: HYDROmorphone 0.5 MG/0.5 ML SYRINGE IV ×2 (17:29→22:56)
[2023-12-03 17:45] VITALS: BP 138/87; PULSE 70; RESP 18; TEMP 36.7; O2SAT 95
[2023-12-03] MEDS: metroNIDAZOLE 500 MG/100 ML BAG 100 MG IV ×2 (17:45→22:57)
[2023-12-03 17:46] VITALS: BMI 29.5
[2023-12-03] MEDS: Pantoprazole Sodium 40 MG in 0.9% Normal Saline (100mL MB+) 100 ML 330 MG IV (18:24)
[2023-12-03] MEDS: Ciprofloxacin 400 MG/200 ML BAG 200 MG IV (21:34)
[2023-12-03] MEDS: 0.9% Saline Lock 10 ML Syringe IV (21:34)
[2023-12-03 22:40] VITALS: BP 117/65; PULSE 69; RESP 16; TEMP 36.4; O2SAT 95
[2023-12-04] VITALS (8 sets, daily range): BP systolic 101–132; BP diastolic 60–78; PULSE 70–81; RESP 14–16; TEMP 36.1–37; O2SAT 94–98; BMI 29.2
[2023-12-04] MEDS: KCL 20MEQ in 0.9% NS 20 MEQ/1,000 ML IV.SOLN. 100 MEQ IV (03:34)
[2023-12-04 05:46] LABS: Absolute Lymphocyte Count 0.33 X10^3/uL (0.83-4.51); Absolute Neutrophil Count 6.2 X10^3/uL (2.0-7.7); Hematocrit 46.5 % (40-54); Hemoglobin 14.1 g/dL (13.0-16.5); Lymphocyte # 0.33 X10^3/ul (0.83-4.51); Mean Corp Hgb Conc 30.3 g/dL (32-36); Mean Corpuscular Hgb 25.5 pg (27.0-32.0); Mean Corpuscular Volume 83.9 fL (80-94); Mean Platelet Vol. 11.2 fl (6.2-12.0); Monocyte# 0.05 X10^3/uL; Monocyte% 0.8 % (0-10); NRBC Flagged by Analyzer 0 % (0-5); Neutrophil # 6.17 X10^3/uL (2.7-7.7); Neutrophil % 93.7 % (47-70); POSITIVE DIFFERENTIAL YES; POSITIVE MORPHOLOGY YES; Platelet Count 201 K/mm3 (150-450); RBC Distribution Width CV 15.2 % (11.6-14.6); RBC Distribution Width SD 46.5 fl (35.1-43.9); Red Blood Count 5.54 M/mm3 (4.6-6.2); White Blood Count 6.6 K/mm3 (4.4-11.0)
[2023-12-04 05:55] LABS: Differential Indicated SCAN CRITERIA MET
[2023-12-04 06:07] LABS: Differential Comment SCANNED
[2023-12-04 06:08] LABS: Anion Gap 6 (5-15); BUN 7 mg/dL (7-18); BUN/Creat Ratio 8.2 RATIO (10-20); Calcium,Total 7.8 mg/dL (8.5-10.1); Chloride 106 mmol/L (98-107); Creatinine, Serum 0.86 mg/dL (0.70-1.30); EST Glomerular Filtration Rate 107 mL/min (>60); Est Glom Filt Rate - Afr Amer 129 mL/min (>60); Estimated Creatinine Clearance 114.88 ml/min; Glucose 130 mg/dL (74-106); Potassium 4.2 mmol/L (3.5-5.1); Sodium Level 139 mmol/L (136-145)
[2023-12-04] MEDS: metroNIDAZOLE 500 MG/100 ML BAG 100 MG IV ×3 (06:27→22:46)
[2023-12-04] MEDS: MethylPREDNISolone 125 MG/2 ML Vial 80 MG IV ×3 (06:27→18:30)
[2023-12-04] MEDS: Ciprofloxacin 400 MG/200 ML BAG 200 MG IV ×2 (08:21→21:07)
[2023-12-04] MEDS: Enoxaparin 40 MG/0.4 ML Syringe SC (08:22)
[2023-12-04] MEDS: Pantoprazole Sodium 40 MG in 0.9% Normal Saline (100mL MB+) 100 ML 330 MG IV (09:37)
--- NOTE | 2023-12-04 12:49 | PCM.PN.HOSP ---
Subjective Subjective Says he has a significant improvement in his abdominal pain. There is still little bit tender on palpation Objective Data Objective Data Vital Signs: Vital Signs Temp Pulse Resp BP Pulse Ox O2 Del Method O2 Flow Rate 97.9 F 72 14 110/68 95 Room Air 2 12/04/23 09:35 12/04/23 09:35 12/04/23 09:35 12/04/23 09:35 12/04/23 10:10 12/04/23 10:10 12/04/23 03:39 Oxygen Flow Rate (L/min) 2 Oxygen Delivery Method Room Air Weight: 175 lb 14.862 oz Body Mass Index (BMI) 29.2 Intake & Output: Intake and Output for Last 24 Hours 12/03/23 12/04/23 12/05/23 03:59 03:59 03:59 Intake Total 3178.75 / 3178.75 410 / 410 Balance 3178.75 / 3178.75 410 / 410 Lab / Micro Data 12/04/23 05:00 12/04/23 05:00 Labs: Laboratory Results - last 24 hr 12/03/23 12:25: WBC 6.8, RBC 6.20, Hgb 16.0, Hct 51.4, MCV 82.9, MCH 25.8 L, MCHC 31.1 L, RDW Std Deviation 46.6 H, RDW Coeff of Latricia 16.1 H, Plt Count 233, MPV 10.6, Immature Gran % (Auto) 0.400, Neut % (Auto) 81.3 H, Lymph % (Auto) 7.8 L, [place] % (Auto) 9.0, Eos % (Auto) 0.9, Baso % (Auto) 0.6, Absolute Neuts (auto) 5.5, Absolute Lymphs (auto) 0.53 L, Nucleated RBC % 0, Sodium 134 L, Potassium 3.8, Chloride 104, Carbon Dioxide 26.0, Anion Gap 4 L, BUN 9, Creatinine 0.89, Estim Creat Clear Calc 110.35, Est GFR (MDRD) Af Amer 124, Est GFR (MDRD) Non-Af 102, BUN/Creatinine Ratio 10.1, Glucose 90, Calcium 8.8, Magnesium 2.2, Total Bilirubin 0.90, Direct Bilirubin 0.24, AST 24, ALT 35, Alkaline Phosphatase 68, Total Protein 7.7, Albumin 3.8, Globulin 3.9, Lipase 35 12/04/23 05:00: WBC 6.6, RBC 5.54, Hgb 14.1, Hct 46.5, MCV 83.9, MCH 25.5 L, MCHC 30.3 L, RDW Std Deviation 46.5 H, RDW Coeff of Latricia 15.2 H, Plt Count 201, MPV 11.2, Immature Gran % (Auto) 0.500, Neut % (Auto) 93.7 H, Lymph % (Auto) 5.0 L, [place] % (Auto) 0.8, Eos % (Auto) 0.0, Baso % (Auto) 0.0, Absolute Neuts (auto) 6.2, Absolute Lymphs (auto) 0.33 L, Nucleated RBC % 0, Differential Comment SCANNED, Sodium 139, Potassium 4.2, Chloride 106, Carbon Dioxide 27.0, Anion Gap 6, BUN 7, Creatinine 0.86, Estim Creat Clear Calc 114.88, Est GFR (MDRD) Af Amer 129, Est GFR (MDRD) Non-Af 107, BUN/Creatinine Ratio 8.2 L, Glucose 130 H, Calcium 7.8 L Radiography Diagnostic Testing: Radiology Impression Abdomen/Pelvis CT 12/03/23 12:55 IMPRESSION: Findings suggestive of recurrent Crohn''s disease involving the terminal and distal ileum with the evidence of circumferential wall thickening and edematous changes. This is improved as compared to prior study. Increased markings are seen in the surrounding peritoneal fat. Mild thickening of the appendix. Electronically Signed: Moses Velásquez MD at 14:58 EDT , Physical Exam Narrative General: Alert, Oriented x3, Cooperative, No apparent distress HEENT: Atraumatic, PERRLA, EOMI, Normocephalic Oral: Moist Mucosa Neck: Supple, No JVD Lungs: Clear to auscultation, Normal air movement, No rhonchi, No wheeze, No rales Cardiovascular: Regular rate, Regular Rhythm, Normal S1, Normal S2, No murmurs Abdomen: Soft, mild tender to palpation, Non-Distended, No Hepato-splenomegaly Extremities: No edema, Capillary Refill Less than 3 Seconds Skin: No rashes, No breakdown Musculoskeletal: No Tenderness to Palpation of Joints or Extremities Neurological: No focal neurological deficits, Motor Exam 5/5 strength throughout, Sensory exam intact to light touch and pain Psych/Mental Status: Normal Affect, Appropriate Assessment & Plan Assessment/Plan (1) Exacerbation of Crohn's disease: PLAN: Plan 1. Crohn's flare ? Continue with IV fluids as well as antibiotics ? Placed on IV steroids ? Awaiting evaluation by GI ? He does have a known thickening of the appendix and this was discussed with general surgery, no recommendations for surgery at this time ? He is feeling much better so if it is okay with GI can place him on a full liquid diet DVT: Lovenox Charges/Coding Visit Charges Inpatient E&M: 78117 Subs Hosp L2
--- NOTE | 2023-12-04 13:34 | CASEMGMT ---
ABUNDIO JACOBO Assessment Face to Face with patient for initial transition planning/care coordination assessment. ABUNDIO JACOBO introduced self and role at [facility], pt voices understanding. Pt is A&Ox4 and is resting comfortably in bed and is calm. Care providers, pharmacy, and demographics verified. Admitting dx: Crohn's Exacerbation PCP: No PCP. Pt refused list Specialists: Denies Preferred Pharmacy:[facility] Insurance: [facility]/ [employer] Prescription Benefit: Yes LNOK: Nieves Mendozaarianbjorn (W) Living Arrangements: Pt lives with his and 2 children (Ages 9 & 13) in a 2 story home with 2 steps to enter ADLs/IADLs: Ind Transportation: Self, DME: Denies all DME uses or needs HHC/SNF: Denies history or needs Pt?s goal: Home Plan: home no needs. 6-Click is 24. Pt states that he feels safe to DC home once medically ready. Pt denies further questions or concerns. CM to follow. Braeden Bonilla RN, CM
--- NOTE | 2023-12-04 15:47 | PN.SURG_ITS ---
Subjective Subjective Patient seen and examined during afternoon rounds. He is found sitting up in bed visiting with his mother. He shares that he is feeling much improved. He confirms that he has had return of bowel function and that his pain is lessened. He reports visit by gastroenterology and that plans are in place to alter his medication regimen for his Crohn's disease ongoing. Objective Data Objective Data Vital Signs: Vital Signs Temp Pulse Resp BP Pulse Ox O2 Del Method O2 Flow Rate 97 F L 80 14 110/68 98 Room Air 2 12/04/23 11:00 12/04/23 11:00 12/04/23 11:12/04/23 11:12/04/23 11:12/04/23 11:00 12/04/23 03:39 Oxygen Flow Rate (L/min) 2 Oxygen Delivery Method Room Air Weight: 176 lb 5.917 oz Body Mass Index (BMI) 29.2 Intake & Output: Intake and Output for Last 24 Hours 12/02/23 12/03/23 12/04/23 23:59 23:59 23:59 Intake Total 2078.75 / 2078.75 2610 / 2610 Balance 2078.75 / 2078.75 2610 / 2610 Lab / Micro Data 12/04/23 05:00 12/04/23 05:00 Labs: Laboratory Results - last 24 hr 12/03/23 12:25: Magnesium 2.2 12/04/23 05:00: WBC 6.6, RBC 5.54, Hgb 14.1, Hct 46.5, MCV 83.9, MCH 25.5 L, M CHC 30.3 L, RDW Std Deviation 46.5 H, RDW Coeff of Latricia 15.2 H, Plt Count 201, MPV 11.2, Immature Gran % (Auto) 0.500, Neut % (Auto) 93.7 H, Lymph % (Auto) 5.0 L, [place] % (Auto) 0.8, Eos % (Auto) 0.0, Baso % (Auto) 0.0, Absolute Neuts (auto) 6.2, Absolute Lymphs (auto) 0.33 L, Nucleated RBC % 0, Differential Comment SCANNED, Sodium 139, Potassium 4.2, Chloride 106, Carbon Dioxide 27.0, Anion Gap 6, BUN 7, Creatinine 0.86, Estim Creat Clear Calc 114.88, Est GFR (MDRD) Af Amer 129, Est GFR (MDRD) Non-Af 107, BUN/Creatinine Ratio 8.2 L, Glucose 130 H, C alcium 7.8 L Physical Exam Const oriented x3 and no apparent distress Resp normal respiratory effort GI GI Narrative: Nondistended, soft, tender to palpation right upper quadrant greater than right lower quadrant Assessment & Plan Assessment/Plan (1) Abdominal pain, acute: PLAN: Patient 38-year-old male who presents with 4-day history of progressive abdominal discomfort and relative obstipation which by emergency medicine workup seems to confirm patient's suspicion for recurrent Crohn's disease flare. Surgery was asked to evaluate patient given radiology reporting of mildly dilated appendix with mild wall thickening. Patient reports overall improvement in his symptoms with application of steroids. His exam remains consistent with tenderness greater in the right upper quadrant than the right lower quadrant, but is also overall improved. This is inconsistent with a diagnosis of appendicitis and recommend deferral to gastroenterology for management of patient's IBD flare. Surgery will now sign off but remain available for future concerns. Thank you for the opportunity to participate in patient's care. Raymundo Gaxiola MD General Surgery Endocrine Surgery Pager: [facility] [address] [place] [address], [facility], [address] [place] [address] Office: [phone] (2) Exacerbation of Crohn's disease: Charges/Coding Visit Charges Inpatient E&M: 36693 Subs Hosp L2
[2023-12-04] MEDS: proCHLORPERazine 10 MG/2 ML Vial 5 MG IV (21:22)
[2023-12-04] MEDS: 0.9% Saline Lock 10 ML Syringe IV (21:23)
[2023-12-05] MEDS: MethylPREDNISolone 125 MG/2 ML Vial 80 MG IV ×2 (00:06→05:08)
[2023-12-05 02:38] VITALS: BMI 29.3
[2023-12-05] MEDS: metroNIDAZOLE 500 MG/100 ML BAG 100 MG IV (05:08)
[2023-12-05 05:12] VITALS: BP 90/55; PULSE 82; RESP 16; TEMP 36.4; O2SAT 93
--- NOTE | 2023-12-05 07:09 | DCINST_ITS ---
Discharge Instructions Diet Discharge Diet: No restrictions Activity Discharge Activity: Return to Normal Activity Dressing / Incision Call your doctor if you observe: Fever of 101 or Higher, Shortness of breath, Dizziness, Fainting spells, Swelling in the ankles, Chest pain and Increased palpitations (irregular heartbeat) Follow Up Care Test Results: Test results from this visit will be discussed in further detail at your follow- up appointment, if applicable. Discharge Plan Admission Admit Date/Time: 12/03/23 16:32 Attending Provider: Tamir Ayala Primary Care Provider: Brian Sandoval,Mari Primary Consulting Providers: Raymundo Gaxiola; Kirby Casper Discharge Orders/Prescriptions Prescriptions: New prednisone 20 mg tablet 60 mg PO DAILY 30 Days Qty: 90 0RF ciprofloxacin HCl [Cipro] 500 mg tablet 500 mg PO BID 6 Days Qty: 12 0RF metronidazole 500 mg tablet 500 mg PO Q8H 6 Days Qty: 18 0RF Continued budesonide 3 mg capsule,delayed,extend.release See Rx Instructions PO DAILY Qty: 90 3RF Patient Comments: PT TAKES 1 CAPSULE A DAY Rx Instructions: Take two capsules once a day for 30 days then once capsule a day for thirty days and continue the current dose until follow-up turmeric 400 mg capsule 800 mg PO BID liver detox capsule 1 cap PO QHS Rx Instructions: supplement incudes zinc, choline, milk thistle. tetrahydrozoline [Visine] 0.05 % drops 1 drp EACH EYE BID PRN (Reason: allergy symptoms) Stelara 90 mg/mL syringe 90 mg subcut Q8W Qty: 1 6RF Referrals / Follow Up: Care Physician,No Primary [Primary Care Provider] - Memo Levine DO [Med Staff - Active Staff] - Within 1 Month Disposition Disposition (needs filled in before D/C Order can be placed): Home, Self Care
[2023-12-05 07:18] VITALS: O2SAT 96
[2023-12-05 07:37] LABS: Absolute Lymphocyte Count 0.41 X10^3/uL (0.83-4.51); Absolute Neutrophil Count 8.7 X10^3/uL (2.0-7.7); Hematocrit 42.7 % (40-54); Hemoglobin 13.5 g/dL (13.0-16.5); Lymphocyte # 0.41 X10^3/ul (0.83-4.51); Lymphocyte % 4.4 % (19-41); Mean Corp Hgb Conc 31.6 g/dL (32-36); Mean Corpuscular Hgb 26.4 pg (27.0-32.0); Mean Corpuscular Volume 83.4 fL (80-94); Monocyte# 0.19 X10^3/uL; NRBC Flagged by Analyzer 0 % (0-5); Neutrophil # 8.74 X10^3/uL (2.7-7.7); Neutrophil % 93.3 % (47-70); POSITIVE DIFFERENTIAL YES; Platelet Count 209 K/mm3 (150-450); RBC Distribution Width CV 15.5 % (11.6-14.6); RBC Distribution Width SD 46.7 fl (35.1-43.9); Red Blood Count 5.12 M/mm3 (4.6-6.2); White Blood Count 9.4 K/mm3 (4.4-11.0)
[2023-12-05 08:03] LABS: Anion Gap 5 (5-15); BUN 11 mg/dL (7-18); BUN/Creat Ratio 15.3 RATIO (10-20); Calcium,Total 8.3 mg/dL (8.5-10.1); Chloride 107 mmol/L (98-107); Creatinine, Serum 0.72 mg/dL (0.70-1.30); EST Glomerular Filtration Rate 131 mL/min (>60); Est Glom Filt Rate - Afr Amer 159 mL/min (>60); Glucose 129 mg/dL (74-106); Potassium 3.5 mmol/L (3.5-5.1); Sodium Level 138 mmol/L (136-145)
--- NOTE | 2023-12-05 13:31 | DS.PCM_ITS ---
Providers Date of Admission: 12/03/23 Primary Care Physician: Mari Primary Care Phys Consultations 12/03/23 16:47 Consult: General Surgery Routine Consulting Provider: Raymundo Gaxiola Reason for Consult: appendix wall thickening, appendicolith EMERGENT Consult: No MD Notified: Yes Date Notified: 12/03/23 Time Notified: 16:47 Method of Notification: ED Physician Initiated 12/03/23 17:13 Consult: Gastroenterology Routine Consulting Provider: [facility] Reason for Consult: crohn's disease exa EMERGENT Consult: No MD Notified: Yes Date Notified: 12/03/23 Time Notified: 16:38 Method of Notification: ED Physician Initiated Reason For Visit: CHRONS EXACERBATION Diagnosis Discharge Diagnosis (1) Abdominal pain, acute: Status: Acute Code(s): R10.9 - Unspecified abdominal pain (2) Exacerbation of Crohn's disease: Status: Acute Code(s): K50.90 - Crohn's disease, unspecified, without complications Medications at Discharge Home Medications ustekinumab 90 mg/mL subcutaneous syringe (Stelara) 90 mg subcut Q8W #1 mL 09/02/23 budesonide 3 mg capsule,delayed,extended release See Rx Instructions PO DAILY #90 ea 10/13/23 liver detox 1 cap PO QHS supplement 12/03/23 tetrahydrozoline 0.05 % eye drops (Visine) 1 drp EACH EYE BID PRN allergy symptoms 12/03/23 turmeric 400 mg capsule 800 mg PO BID 12/03/23 ciprofloxacin HCl 500 mg tablet (Cipro) 500 mg PO BID 6 days #12 tabs 12/05/23 metronidazole 500 mg tablet 500 mg PO Q8H 6 days #18 tabs 12/05/23 prednisone 20 mg tablet 60 mg (3 x 20 mg) PO DAILY 30 days #90 tabs 12/05/23 Hospital Course Operations None Procedures None Summary of Care Provided Minutes Spent on Discharge: 33 Hospital Course: Per HPI: ARISTIDES GILL, is a 38 M with history of Crohn's disease diagnosed at the age of 9, came to ED with abdominal pain, nausea, vomiting and fever for 3 days. Patient started not feeling good 3 days ago being nauseous and subjective feverish although did not take temperature. Abdominal pain started 3 days ago, generalized, spontaneous onset, intermittent, colicky in nature about 10/10 in intensity. Since he has known history of Crohn's disease and had jejunal resection and anastomosis in the past he knew that he is having Crohn's disease exacerbation and may be blockage of the bowel therefore not eating much but trying to drink d. He also had bilious vomiting and then clear. He has not moved bowel for 3 days but passing flatus. No vomiting blood or hematochezia or melena. Dark urine but denies burning micturition or hematuria. Hospital Course: 1. Crohn's flare?38-year-old male with a history of Crohn's currently on Stelara and budesonide orally presented to the hospital with abdominal pain and thickening of his terminal ileum consistent with Crohn's flare. He was started on aggressive Solu-Medrol and had very rapid improvement. He was also started on Cipro and Flagyl. I discussed the case with gastroenterology who recommended 60 mg of prednisone daily and to follow-up in the office where they can titrate him down on his steroids. Will also complete 7 days of Cipro 500 mg p.o. twice daily as well as Flagyl 500 mg p.o. 3 times daily. I discussed the plan for discharge today and he expressed understanding of the risk and benefits of going home and would like to go home today. He states that that he has very mild abdominal pain today and tolerated diet without any significant symptoms. Physical Exam Narrative General: Alert, Oriented x3, Cooperative, No apparent distress HEENT: Atraumatic, PERRLA, EOMI, Normocephalic Oral: Moist Mucosa Neck: Supple, No JVD Lungs: Clear to auscultation, Normal air movement, No rhonchi, No wheeze, No rales Cardiovascular: Regular rate, Regular Rhythm, Normal S1, Normal S2, No murmurs Abdomen: Soft, nontender, Non-Distended, No Hepato-splenomegaly Extremities: No edema, Capillary Refill Less than 3 Seconds Skin: No rashes, No breakdown Musculoskeletal: No Tenderness to Palpation of Joints or Extremities Neurological: No focal neurological deficits, Motor Exam 5/5 strength throughout, Sensory exam intact to light touch and pain Psych/Mental Status: Normal Affect, Appropriate Weight / BMI Weight Weight: 176 lb 5.917 oz Body Mass Index (BMI) 29.3 ABG / Lab / Microbiology Data 12/05/23 06:07 12/05/23 06:07 Laboratory: Laboratory Results - last 24 hr 12/05/23 06:07: WBC 9.4, RBC 5.12, Hgb 13.5, Hct 42.7, MCV 83.4, MCH 26.4 L, M CHC 31.6 L, RDW Std Deviation 46.7 H, RDW Coeff of Latricia 15.5 H, Plt Count 209, MPV 11.0, Immature Gran % (Auto) 0.300, Neut % (Auto) 93.3 H, Lymph % (Auto) 4.4 L, [place] % (Auto) 2.0, Eos % (Auto) 0.0, Baso % (Auto) 0.0, Absolute Neuts (auto) 8.7 H, Absolute Lymphs (auto) 0.41 L, Nucleated RBC % 0, Sodium 138, Potassium 3.5, Chloride 107, Carbon Dioxide 26.0, Anion Gap 5, BUN 11, Creatinine 0.72, Estim Creat Clear Calc 136.90, Est GFR (MDRD) Af Amer 159, Est GFR (MDRD) Non-Af 131, BUN/Creatinine Ratio 15.3, Glucose 129 H, Calcium 8.3 L D/C Instructions Discharge Diet: No restrictions Call your doctor if you observe: Fever of 101 or Higher, Shortness of breath, Dizziness, Fainting spells, Swelling in the ankles, Chest pain and Increased palpitations (irregular heartbeat) Meaningful Use Info Meaningful Use Meaningful Use Diagnoses (Choose all that apply): None applicable Ischemic Stroke Statin Dosing Therapy Reference: STATIN DOSE THERAPY REFERENCE: * Patients > 75 years receive moderate or high dose statin therapy. * Patients 75 years or YOUNGER should receive HIGH intensity statin dose unless contraindicated. You will be required to document reason for non-treatment if statin daily dose does not meet guidelines. HIGH DOSE STATIN THERAPY DAILY Atorvastatin > than or = to 40 mg Rosuvastatin > than or = to 20 mg Amlodipine + Atorvastatin > than or = to 2.5/40 mg Ezetimibe + Simvastatin 10/80 mg Simvastatin 80mg Discharge Plan Admission Admit Date/Time: 12/03/23 16:32 Attending Provider: Tamir Ayala Primary Care Provider: Care Physician,No Primary Consulting Providers: Raymundo Gaxiola; Kirby Casper Discharge Orders/Prescriptions Prescriptions: New prednisone 20 mg tablet 60 mg PO DAILY 30 Days Qty: 90 0RF ciprofloxacin HCl [Cipro] 500 mg tablet 500 mg PO BID 6 Days Qty: 12 0RF metronidazole 500 mg tablet 500 mg PO Q8H 6 Days Qty: 18 0RF Continued budesonide 3 mg capsule,delayed,extend.release See Rx Instructions PO DAILY Qty: 90 3RF Patient Comments: PT TAKES 1 CAPSULE A DAY Rx Instructions: Take two capsules once a day for 30 days then once capsule a day for thirty days and continue the current dose until follow-up turmeric 400 mg capsule 800 mg PO BID liver detox capsule 1 cap PO QHS Rx Instructions: supplement incudes zinc, choline, milk thistle. tetrahydrozoline [Visine] 0.05 % drops 1 drp EACH EYE BID PRN (Reason: allergy symptoms) Stelara 90 mg/mL syringe 90 mg subcut Q8W Qty: 1 6RF Referrals / Follow Up: Memo Levine DO [Med Staff - Active Staff] - Within 1 Month Care Physician,No Primary [Primary Care Provider] - Disposition Disposition (needs filled in before D/C Order can be placed): Home, Self Care Charges/Coding Visit Charges Inpatient E&M: 77771 Disch Hosp >30min
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
== END 2023-12-05 08:51 | disposition home or self-care (01) | DRG 245 ==
LOC: ED 15:36 → MS3 17:07
PROVIDERS: Admitting Provider Internal Medicine; Emergency Provider Emergency Medicine; Visit Provider Family Medicine
DX: K50.90 Crohn's disease, unspecified, without complications (principal); F17.200 Nicotine dependence, unspecified, uncomplicated; F17.220 Nicotine dependence, chewing tobacco, uncomplicated; F17.290 Nicotine dependence, other tobacco product, uncomplicated; K38.8 Other specified diseases of appendix
CPT/HCPCS: 36415; 74177; 80048; 80076; 83690; 83735; 85025; 94668; 99284; 99406; J7030; Q9967; A4216; J0744; J2405

== ENCOUNTER → 2023-12-15 | Outpatient (CLI) | payer MEDICAID, SELFPAY ==
[2023-12-15 14:41] LABS: Erythrocyte Sedimentation Rate 3 mm/hr (0-20)
[2023-12-15 14:43] LABS: Absolute Lymphocyte Count 0.94 X10^3/uL (0.83-4.51); Absolute Neutrophil Count 4.5 X10^3/uL (2.0-7.7); Basophil# 0.02 X10^3/uL; Basophil% 0.3 % (0-1); Eosinophil# 0.08 X10^3/uL; Eosinophils% 1.3 % (0-5); Hematocrit 46.9 % (40-54); Hemoglobin 14.8 g/dL (13.0-16.5); Lymphocyte # 0.94 X10^3/ul (0.83-4.51); Lymphocyte % 15.6 % (19-41); Mean Corp Hgb Conc 31.6 g/dL (32-36); Mean Corpuscular Hgb 26.2 pg (27.0-32.0); Mean Platelet Vol. 10.7 fl (6.2-12.0); Monocyte# 0.46 X10^3/uL; Monocyte% 7.6 % (0-10); NRBC Flagged by Analyzer 0 % (0-5); Neutrophil # 4.52 X10^3/uL (2.7-7.7); Platelet Count 223 K/mm3 (150-450); RBC Distribution Width CV 15.2 % (11.6-14.6); RBC Distribution Width SD 45.9 fl (35.1-43.9); Red Blood Count 5.65 M/mm3 (4.6-6.2)
[2023-12-15 15:01] LABS: AST(SGOT) 14 U/L (15-37); Alanine Aminotransfer ALT/SGPT 20 U/L (16-61); Albumin, Serum 3.3 g/dL (3.2-5.0); Alkaline Phosphatase 50 U/L (45-117); Anion Gap 5 (5-15); BUN 9 mg/dL (7-18); BUN/Creat Ratio 8.7 RATIO (10-20); Calcium,Total 9.1 mg/dL (8.5-10.1); Chloride 104 mmol/L (98-107); Creatinine, Serum 1.03 mg/dL (0.70-1.30); EST Glomerular Filtration Rate 86 mL/min (>60); Est Glom Filt Rate - Afr Amer 104 mL/min (>60); Globulin 3.4 g/dL (2.2-4.2); Glucose 95 mg/dL (74-106); Potassium 3.2 mmol/L (3.5-5.1); Protein, Total 6.7 g/dL (6.4-8.2); Sodium Level 138 mmol/L (136-145)
[2023-12-19 06:07] LABS: QNTFERON TB Mitogen Value > 10.00 IU/mL (.); QNTFERON TB Nil Value 0.12 IU/mL (.); QNTFERON TB1+ Ag Value 0.18 IU/mL (.); QNTFERON TB2+ Ag Value 0.11 IU/mL (.); QNTIFERON TB Positive Criteria Negative (Negative)
== END | disposition home or self-care (01) ==
LOC: LAB 13:51
PROVIDERS: Referring Provider Internal Medicine Gastroenterology; Visit Provider Internal Medicine Gastroenterology
DX: K50.90 Crohn's disease, unspecified, without complications (principal)
CPT/HCPCS: 36415; 80053; 85025; 85652; 86140; 86480

== ENCOUNTER → 2024-04-19 | Outpatient (CLI) | payer MEDICAID, SELFPAY ==
[2024-04-19 10:56] LABS: Erythrocyte Sedimentation Rate 2 mm/hr (0-20)
[2024-04-19 10:59] LABS: Absolute Lymphocyte Count 0.85 X10^3/uL (0.83-4.51); Absolute Neutrophil Count 4.2 X10^3/uL (2.0-7.7); Basophil# 0.03 X10^3/uL; Basophil% 0.5 % (0-1); Eosinophils% 1.8 % (0-5); Hematocrit 52.2 % (40-54); Hemoglobin 17.2 g/dL (13.0-16.5); Lymphocyte # 0.85 X10^3/ul (0.83-4.51); Lymphocyte % 14.9 % (19-41); Mean Corpuscular Hgb 27.7 pg (27.0-32.0); Mean Corpuscular Volume 83.9 fL (80-94); Mean Platelet Vol. 10.4 fl (6.2-12.0); Monocyte# 0.45 X10^3/uL; Monocyte% 7.9 % (0-10); NRBC Flagged by Analyzer 0 % (0-5); Neutrophil # 4.24 X10^3/uL (2.7-7.7); Neutrophil % 74.5 % (47-70); Platelet Count 224 K/mm3 (150-450); RBC Distribution Width CV 15.5 % (11.6-14.6); RBC Distribution Width SD 46.8 fl (35.1-43.9); Red Blood Count 6.22 M/mm3 (4.6-6.2); White Blood Count 5.7 K/mm3 (4.4-11.0)
[2024-04-19 11:09] LABS: Lactic Acid 1.1 mmol/L (0.4-1.9)
[2024-04-19 11:28] LABS: ALB/GLOB Ratio 1.1 RATIO (0.9-2.4); AST(SGOT) 24 U/L (15-37); Alanine Aminotransfer ALT/SGPT 28 U/L (16-61); Albumin, Serum 3.9 g/dL (3.2-5.0); Alkaline Phosphatase 63 U/L (45-117); Anion Gap 6 (5-15); BUN 10 mg/dL (7-18); BUN/Creat Ratio 10.5 RATIO (10-20); CPK Total, Creatine Kinase 174 U/L (39-308); CRP 4.54 mg/L (0.0-3.0); Calcium,Total 9.1 mg/dL (8.5-10.1); Chloride 104 mmol/L (98-107); Creatinine, Serum 0.95 mg/dL (0.70-1.30); EST Glomerular Filtration Rate 94 mL/min (>60); Est Glom Filt Rate - Afr Amer 114 mL/min (>60); Globulin 3.6 g/dL (2.2-4.2); Glucose 89 mg/dL (74-106); LDH 153 U/L (87-241); Potassium 4.3 mmol/L (3.5-5.1); Protein, Total 7.5 g/dL (6.4-8.2); Sodium Level 139 mmol/L (136-145)
[2024-04-21 15:09] LABS: Albumin 3.9 g/dL (2.9-4.4); Aldolase 3.3 U/L (3.3-10.3); Alpha-1-Globulins 0.2 g/dL (0.0-0.4); Alpha-2-Globulins 0.7 g/dL (0.4-1.0); Gamma Globulin 1.2 g/dL (0.4-1.8); Immunoglobulin A 271 mg/dL (90-386); Immunoglobulin G 1156 mg/dL (603-1613); Immunoglobulin M 143 mg/dL (20-172)
== END | disposition home or self-care (01) ==
PROVIDERS: Referring Provider Internal Medicine Gastroenterology; Visit Provider Internal Medicine Gastroenterology
DX: K50.00 Crohn's disease of small intestine without complications (principal)
CPT/HCPCS: 36415; 80053; 82085; 82550; 82784; 83605; 83615; 84165; 85025; 85652; 86140; 86334

== ENCOUNTER → 2024-07-19 | Outpatient (CLI) | payer MEDICAID, SELFPAY ==
[2024-07-19 10:17] LABS: Absolute Lymphocyte Count 0.95 X10^3/uL (0.83-4.51); Absolute Neutrophil Count 3.4 X10^3/uL (2.0-7.7); Basophil# 0.04 X10^3/uL; Basophil% 0.8 % (0-1); Eosinophil# 0.09 X10^3/uL; Eosinophils% 1.8 % (0-5); Hemoglobin 16.9 g/dL (13.0-16.5); Lymphocyte # 0.95 X10^3/ul (0.83-4.51); Lymphocyte % 19.3 % (19-41); Mean Corp Hgb Conc 33.8 g/dL (32-36); Mean Corpuscular Hgb 28.9 pg (27.0-32.0); Mean Corpuscular Volume 85.6 fL (80-94); Mean Platelet Vol. 10.9 fl (6.2-12.0); Monocyte# 0.43 X10^3/uL; Monocyte% 8.7 % (0-10); NRBC Flagged by Analyzer 0 % (0-5); Neutrophil # 3.41 X10^3/uL (2.7-7.7); Neutrophil % 69.2 % (47-70); Platelet Count 223 K/mm3 (150-450); RBC Distribution Width CV 13.7 % (11.6-14.6); RBC Distribution Width SD 43.1 fl (35.1-43.9); Red Blood Count 5.84 M/mm3 (4.6-6.2); White Blood Count 4.9 K/mm3 (4.4-11.0)
[2024-07-19 10:20] LABS: Erythrocyte Sedimentation Rate 7 mm/hr (0-20)
[2024-07-19 10:57] LABS: Vitamin B12 374 pg/mL (211-911)
[2024-07-19 11:30] LABS: AST(SGOT) 15 U/L (15-37); Alanine Aminotransfer ALT/SGPT 34 U/L (16-61); Albumin, Serum 3.8 g/dL (3.2-5.0); Alkaline Phosphatase 56 U/L (45-117); Anion Gap 6 (5-15); BUN 11 mg/dL (7-18); BUN/Creat Ratio 12.5 RATIO (10-20); CRP 3.54 mg/L (0.0-3.0); Calcium,Total 9.2 mg/dL (8.5-10.1); Chloride 104 mmol/L (98-107); Creatinine, Serum 0.88 mg/dL (0.70-1.30); EST Glomerular Filtration Rate 103 mL/min (>60); Est Glom Filt Rate - Afr Amer 125 mL/min (>60); Globulin 3.8 g/dL (2.2-4.2); Glucose 92 mg/dL (74-106); Protein, Total 7.6 g/dL (6.4-8.2); Sodium Level 136 mmol/L (136-145)
[2024-07-22 15:07] LABS: Erythropoietin 6.7 mIU/mL (2.6-18.5)
== END | disposition home or self-care (01) ==
PROVIDERS: Referring Provider Internal Medicine Gastroenterology; Visit Provider Internal Medicine Gastroenterology
DX: D75.1 Secondary polycythemia (principal); K50.00 Crohn's disease of small intestine without complications
CPT/HCPCS: 36415; 80053; 81270; 82607; 82668; 85025; 85652; 86140

== ENCOUNTER → 2024-11-29 | Outpatient (CLI) | payer MEDICAID, SELFPAY ==
[2024-11-29 10:33] LABS: Erythrocyte Sedimentation Rate 7 mm/hr (0-20)
[2024-11-29 10:36] LABS: Absolute Lymphocyte Count 0.94 X10^3/uL (0.83-4.51); Absolute Neutrophil Count 3.4 X10^3/uL (2.0-7.7); Basophil# 0.03 X10^3/uL; Basophil% 0.6 % (0-1); Eosinophil# 0.14 X10^3/uL; Eosinophils% 2.8 % (0-5); Hematocrit 50.5 % (40-54); Hemoglobin 17.4 g/dL (13.0-16.5); Lymphocyte # 0.94 X10^3/ul (0.83-4.51); Lymphocyte % 18.5 % (19-41); Mean Corp Hgb Conc 34.5 g/dL (32-36); Mean Corpuscular Hgb 30.3 pg (27.0-32.0); Mean Platelet Vol. 10.9 fl (6.2-12.0); Monocyte# 0.53 X10^3/uL; Monocyte% 10.4 % (0-10); NRBC Flagged by Analyzer 0 % (0-5); Neutrophil # 3.39 X10^3/uL (2.7-7.7); Neutrophil % 66.5 % (47-70); Platelet Count 231 K/mm3 (150-450); RBC Distribution Width CV 13.1 % (11.6-14.6); RBC Distribution Width SD 41.3 fl (35.1-43.9); Red Blood Count 5.74 M/mm3 (4.6-6.2); White Blood Count 5.1 K/mm3 (4.4-11.0)
[2024-11-29 10:55] LABS: CRP 3.03 mg/L (0.0-3.0)
== END | disposition home or self-care (01) ==
LOC: LAB 09:46
PROVIDERS: Referring Provider Internal Medicine Gastroenterology; Visit Provider Internal Medicine Gastroenterology
DX: K50.00 Crohn's disease of small intestine without complications (principal); D75.1 Secondary polycythemia
CPT/HCPCS: 36415; 85025; 85652; 86140

== ENCOUNTER → 2025-02-07 | Outpatient (CLI) | payer MEDICAID, SELFPAY | END | disposition home or self-care (01) | LOC: SL 10:11 | PROVIDERS: PCP Internal Medicine; Visit Provider Nurse Practitioner Acute Care | DX: G47.33 Obstructive sleep apnea (adult) (pediatric) (principal); G47.10 Hypersomnia, unspecified | CPT/HCPCS: 95806 ==

== ENCOUNTER → 2025-03-28 | Outpatient (CLI) | payer MEDICAID, SELFPAY | END | disposition home or self-care (01) | LOC: SL 19:51 | PROVIDERS: PCP Internal Medicine; Referring Provider Nurse Practitioner Acute Care; Visit Provider Nurse Practitioner Acute Care | DX: G47.10 Hypersomnia, unspecified (principal) | CPT/HCPCS: 95810 ==

== ENCOUNTER → 2025-05-30 | Outpatient (CLI) | payer MEDICAID, SELFPAY ==
[2025-05-30 10:23] LABS: Immature Granulocytes Count 0.010 X10^3/uL (0.0-0.0); Mean Corp Hgb Conc 34.4 g/dL (32-36); Mean Corpuscular Volume 89.8 fL (80-94); Mean Platelet Vol. 10.6 fl (6.2-12.0); NRBC Flagged by Analyzer 0 % (0-5); Platelet Count 239 K/mm3 (150-450); RBC Distribution Width CV 13.5 % (11.6-14.6); RBC Distribution Width SD 44.9 fl (35.1-43.9); Red Blood Count 6.28 M/mm3 (4.6-6.2); White Blood Count 5.1 K/mm3 (4.4-11.0)
[2025-05-30 10:54] LABS: Ferritin 46 ng/mL (37-417)
[2025-05-30 10:57] LABS: Iron 170 ug/dL (65-175); Iron Binding Capacity,Unsat 306 ug/dL (228-428); LDH 178 U/L (87-241)
[2025-05-30 10:58] LABS: Iron Binding Capacity,Total 476 ug/dL (250-450)
[2025-05-30 14:10] LABS: Hematocrit 56.4 % (40-54)
[2025-05-30 14:11] LABS: Hemoglobin 19.4 g/dL (13.0-16.5)
== END | disposition home or self-care (01) ==
LOC: LAB 09:55
PROVIDERS: PCP Internal Medicine; Referring Provider Internal Medicine Gastroenterology; Visit Provider Internal Medicine Gastroenterology
DX: D75.1 Secondary polycythemia (principal)
CPT/HCPCS: 36415; 82728; 83540; 83550; 83615; 85025